=== PATIENT | male | born 1945 | race Caucasian/White ===

== ENCOUNTER 2020-06-08 11:37 | Outpatient (CLI) | payer MEDICARE, SELFPAY ==
[2020-06-08 12:20] LABS: Basophils Percent Auto 0.5 % (0.2-1.2); Eosinophils Percent Auto 0.1 % (0-4.4); Hematocrit 47.4 % (42.0-52.0); Hemoglobin 15.4 g/dL (14.0-18.0); Immature Granulocyte Absolute 0.03 K/mm3 (0.00-0.031); Immature Granulocyte Percent A 0.4 % (0-0.5); Immature Platelet Fraction Pct 2.1 % (0.9-11.2); Lymphocytes Absolute Auto 1.84 K/mm3 (0.9-3.2); Lymphocytes Percent Auto 22.2 % (18.3-44.2); Mean Corpuscular HGB Conc 32.5 g/dl (32-36); Mean Corpuscular Hemoglobin 28.4 pg (26-34); Mean Corpuscular Volume 87.3 fl (80-100); Mean Platelet Volume 9.9 fl (7.4-10.4); Monocytes Absolute Auto 0.3 K/mm3 (0.1-0.6); Monocytes Percent Auto 3.9 % (2.6-8.5); Neutrophils Percent Auto 72.9 % (45.5-73.1); Platelet Count Result 120 k/mm3 (150-375); Red Blood Count 5.43 M/mm3 (4.6-6.20); Red Cell Distribution Width 13.8 % (11.5-14.5); White Blood Count 8.3 K/mm3 (4.5-10.0)
[2020-06-08 12:29] LABS: Alanine Aminotransferase 17 U/L (4-50); Albumin Level 3.3 g/dL (3.5-5.1); Alkaline Phosphatase 55 U/L (38-126); Anion Gap 5 mmol/L (8-16); Aspartate Amino Transferase 32 U/L (17-59); Bilirubin,Total 0.6 mg/dL (0.2-1.3); Blood Urea Nitrogen 34 mg/dL (9-20); Calcium 7.7 mg/dL (8.4-10.2); Carbon Dioxide 33 mmol/L (22-30); Chloride 98 mmol/L (98-107); Estimated Glomerular Filt Rate 46; Glucose 138 mg/dL (75-110); Potassium 3.6 mmol/L (3.4-5.0); Sodium 136 mmol/L (137-145); Uric Acid 5.7 mg/dL (3.5-8.5)
[2020-06-08 13:13] LABS: Erythrocyte Sedimentation Rate 21 mm/hr (0-20)
[2020-06-17 14:07] LABS: ANA Cascade Screen Negative (Negative)
== END 2020-06-08 11:38 | disposition home or self-care (01) ==
LOC: ANHLAB 11:41
PROVIDERS: PCP Family Medicine; Visit Provider Physician Assistant
DX: M25.50 Pain in unspecified joint (principal)
CPT/HCPCS: 36415; 80053; 84443; 84550; 85025; 85055; 85652; 86038

== ENCOUNTER 2020-06-11 08:22 | Inpatient (IN) | payer MEDICARE, SELFPAY ==
[2020-06-11] VITALS (13 sets, daily range): BP systolic 113–128; BP diastolic 49–77; PULSE 64–81; RESP 20–25; TEMP 36.4–36.8; O2SAT 70–96; BMI 26.1
--- NOTE | ~2020-06-11 | XR_ITS ---
EXAMINATION: XR abdomen NG/feed tube insert INDICATION: Nasogastric tube insertion TECHNIQUE: Portable AP KUB-NG at 0925 hours COMPARISON: None available FINDINGS: The nasogastric tube is in the stomach. There are patchy opacities throughout all visualize d lung zones. No free intraperitoneal gas is identified. IMPRESSION: 1. Nasogastric tube in the stomach. Reviewed, dictated and finalized at location B.
--- NOTE | ~2020-06-11 | XR_ITS ---
EXAMINATION: XR chest 1V portable DATE: 06/17/2020 05:37 INDICATION: Acute respiratory failure. COVID 19 pneumonia. TECHNIQUE: frontal view of the chest was obtained. COMPARISON: Chest radiograph dated 06/16/2020 FINDINGS: Endotracheal tube tip 4.3 cm above the marck. Nasogastric tube in the stomach. Right upper extremity peripherally inserted central venous catheter (PICC) tip at the superior vena cava. No significant interval change in diffuse bilateral patchy airspace opacities throughout both lungs r elatively sparing the apices. No pneumothorax or pleural effusion. The cardiomediastinal silhouette i s normal. Suture anchors at the right glenoid suggesting prior labral repair. IMPRESSION: 1. No significant interval change in diffuse bilateral lung disease consistent with COVID pneumonia. Reviewed, dictated and finalized at location A.
--- NOTE | ~2020-06-11 | XR_ITS ---
EXAMINATION: XR chest 2V EXAM DATE: 06/11/2020 09:13 INDICATION: Weakness. Recent COVID vaccine. TECHNIQUE: Frontal and lateral projections of the chest obtained and reviewed. There is no prior viktor dy for comparison. FINDINGS: There is moderate amount of bilateral ill-defined airspace disease probably acute infectio us process. Cardiomediastinal silhouette is normal. There is no pneumothorax suspected. There are no pleural effusions. There are mild bony degenerative changes. IMPRESSION: 1. Moderate amount of ill-defined bilateral acute airspace disease, probably infection. Reviewed, dictated and finalized at location A.
--- NOTE | ~2020-06-11 | XR_ITS ---
XR chest 1V portable DATE: 06/20/2020 05:39 INDICATION: Acute respiratory failure. Covid 19 pneumonia. TECHNIQUE: Portable AP chest on 06/20/2020 at 0520 hours COMPARISON: 06/19/2020 portable AP chest at 0519 hours FINDINGS: ET tube in satisfactory position approximately 4 cm above marck. NG tube in stomach. Right upper extremity PIC catheter tip overlies the superior vena cava. There are persistent patchy bilateral diffuse pulmonary infiltrates which appear relatively stable si nce 06/19/2020. IMPRESSION: Persistent extensive patchy diffuse bilateral pulmonary infiltrates, relatively stable si nce 06/19/2020 Reviewed, dictated and finalized at location A. IMPRESSION: Persistent extensive patchy diffuse bilateral pulmonary infiltrates , relatively stable since 06/19/2020
--- NOTE | ~2020-06-11 | XR_ITS ---
EXAMINATION: XR chest 1V portable EXAM DATE: 06/16/2020 05:49 INDICATION: Acute respiratory failure, COVID-19 pneumonia TECHNIQUE: Portable AP frontal chest x-ray was obtained. Comparison is made to prior examination from 06/15/2020. FINDINGS: Endotracheal tube tip is 3 centimeters above the marck. There is a right-sided PICC line w ith tip projecting over the cavoatrial junction. There is a nasogastric tube seen with tip collimate d off the study, but below the left hemidiaphragm. Diffuse bilateral acute airspace disease, pneumonia. There are no sizable pleural effusions. There is no pneumothorax suspected. Cardiomediastinal silhouette is normal. The bones and soft tissues a re unremarkable. There is no significant interval change compared to prior exam. IMPRESSION: 1. Line and tube(s) in position. 2. Extensive bilateral airspace disease unchanged. Reviewed, dictated and finalized at location A.
--- NOTE | ~2020-06-11 | XR_ITS ---
XR chest 1V portable DATE: 06/23/2020 05:34 INDICATION: Acute respiratory failure. Covid 19 pneumonia TECHNIQUE: Portable AP chest on 06/23/2020 at 0522 hours COMPARISON: 06/22/2020 portable AP chest at 0508 hours FINDINGS: There are extensive patchy bilateral pulmonary infiltrates, mildly increased compared to . No pleural effusion or pneumothorax. Normal heart size. Right upper extremity PIC catheter tip overlies superior cavoatrial junction approximately. IMPRESSION: Extensive patchy bilateral pulmonary infiltrates, mildly increased since 06/20/2020 Reviewed, dictated and finalized at location A.
--- NOTE | ~2020-06-11 | XR_ITS ---
EXAMINATION: XR chest 1V portable EXAM DATE: 06/15/2020 04:01 INDICATION: Respiratory distress. TECHNIQUE: Portable AP frontal chest x-ray was obtained. Comparison is made to prior examination from 06/13, 06/11. FINDINGS: Extensive patchy bilateral peripheral distribution airspace disease, unchanged compared to 06/13 exam, but with significant progression compared to 06/11. Distribution is consistent with COVID pneumonia. Other infectious etiology or edema not excludable. No pneumothorax. No sizable pleural eff usions. Cardiomediastinal silhouette is normal. Some right glenoid rotator cuff repair anchors. IMPRESSION: Extensive bilateral acute airspace disease, unchanged compared to most recent exam. No pn eumothorax. Reviewed, dictated and finalized at location A. IMPRESSION: Extensive bilateral acute airspace disease, unchanged compared to m ost recent exam. No pneumothorax.
--- NOTE | ~2020-06-11 | XR_ITS ---
XR chest 1V portable DATE: 06/22/2020 05:17 INDICATION: Acute respiratory failure. Covid 19 pneumonia. TECHNIQUE: Portable AP chest on 06/22/2020 at 0508 hours COMPARISON: 06/21/2020 portable AP chest at 0518 hours FINDINGS: Interval removal of ET tube and NG tube since 06/21/2020. Right upper extremity PIC catheter tip is situated near the superior cavoatrial junction. There are extensive patchy diffuse bilateral pulmonary infiltrates, relatively stable since 06/21/2020 . Normal heart size. Aortic arch calcification. No pleural effusion or pneumothorax. IMPRESSION: Persistent severe patchy bilateral pulmonary infiltrates Removal of ET and NG tubes Reviewed, dictated and finalized at location A.
--- NOTE | ~2020-06-11 | XR_ITS ---
EXAMINATION: XR chest 1V portable EXAM DATE: 06/13/2020 05:25 INDICATION: hypoxia, pneumonia TECHNIQUE: Portable AP frontal chest x-ray was obtained. Comparison is made to prior examination from 06/11/2020. FINDINGS: Extensive patchy bilateral peripheral distribution airspace disease, with significant progr ession compared to prior examination. Distribution is consistent with COVID pneumonia. Other infectio us etiology or edema not excludable. No pneumothorax. There are is small left pleural effusion. Cardi omediastinal silhouette is normal. Some right glenoid rotator cuff repair anchors. IMPRESSION: Significant progression in extensive bilateral acute airspace disease. Distribution consi stent with COVID pneumonia. Reviewed, dictated and finalized at location A. IMPRESSION: Significant progression in extensive bilateral acute airspace disea se. Distribution consistent with COVID pneumonia.
--- NOTE | ~2020-06-11 | XR_ITS ---
EXAMINATION: XR chest 1V portable DATE: 06/26/2020 06:05 INDICATION: Shortness of breath. Pneumonia. TECHNIQUE: A single frontal view of the chest was obtained. COMPARISON: Chest single view 06/23/2020, chest CT 06/12/2020 FINDINGS: There are patchy airspace opacities in all lung zones bilaterally. No pleural effusion or p neumothorax. The heart size is normal. A right upper extremity peripherally inserted central venous c atheter (PICC) is seen with tip in the superior vena cava. There are suture anchors in right scapula. IMPRESSION: 1. Stable diffuse lung disease, consistent with COVID-19 pneumonia. Reviewed, dictated and finalized at location A.
--- NOTE | ~2020-06-11 | XR_ITS ---
EXAMINATION: XR chest ET placement INDICATION: Endotracheal tube placement TECHNIQUE: Portable AP chest at 0923 hours COMPARISON: 0359 hours FINDINGS: Endotracheal tube has been inserted which ends 2.6 cm above the marck. Diffuse airspace op acities persist in all lung zones without significant change. There is no pleural effusion or pneumot horax. The cardiomediastinal silhouette is normal. The nasogastric tube is followed as far as the sto mach. Its tip is beyond the inferior margin of the radiograph. Suture anchors are noted in the right glenoid. IMPRESSION: 1. Endotracheal and nasogastric tubes inserted in adequate position. 2. Stable diffuse lung disease, consistent with pneumonia and/or pulmonary edema and/or acute respira tory distress syndrome (ARDS). Reviewed, dictated and finalized at location B. IMPRESSION: 1. Endotracheal and nasogastric tubes inserted in adequate position. 2. Stable diffuse lung disease, consistent with pneumonia and/or pulmonary frances a and/or acute respiratory distress syndrome (ARDS).
--- NOTE | ~2020-06-11 | CT_ITS ---
EXAMINATION: CTA chest PE protocol DATE: 06/12/2020 22:01 INDICATION: Shortness of breath, worsening hypoxia TECHNIQUE: Computed tomography angiography (CTA) of the chest was performed with 100 mL Omnipaque-350 intravenous contrast timed to evaluate the pulmonary arteries. Coronal maximum intensity projection 3D-reconstructions were created by the technologist. Automated exposure control and iterative reconst ruction technique were employed. Exam dose: 561.11 mGy-cm total exam DLP. COMPARISON: 06/11/2020 2 view chest FINDINGS: There is diagnostic contrast enhancement of the pulmonary arteries and no evidence of pulmo nary embolism. No thoracic aortic aneurysm or dissection. Thoracic aortic and coronary artery calcifications. Mild hilar and mediastinal lymph node prominence, likely reactive. Heart size is within normal range. No pericardial or pleural effusion or pneumothorax. There are extensive patchy groundglass infiltrates scattered throughout both lungs all lobes, with so me atelectasis/consolidation particularly in the dependent lower lobes. Normal morphology of the included portions of the adrenal glands. Small sliding hiatal hernia. No suspicious osteolytic or osteoblastic lesions. Degenerative changes of the thoracic and lumbar spi ne. IMPRESSION: No evidence of pulmonary embolism Extensive bilateral pulmonary infiltrates Reviewed, dictated and finalized at Location A. Reviewed, dictated and finalized at location A.
--- NOTE | ~2020-06-11 | XR_ITS ---
EXAMINATION: XR chest 1V portable DATE: 06/18/2020 07:43 INDICATION: COVID 19 pneumonia. Acute respiratory failure. TECHNIQUE: frontal view of the chest was obtained. COMPARISON: Chest radiograph dated 06/17/2020 FINDINGS: Endotracheal tube tip 3.4 cm above the marck. Right upper extremity peripherally inserted central ve nous catheter (PICC) tip at the caudal superior vena cava. No significant interval change in scattered bilateral patchy airspace opacities throughout both lungs relatively sparing the apices. No pneumothorax or pleural effusion. Cardiomediastinal silhouette is normal. Suture anchors at the right glenoid consistent with prior labral repair. IMPRESSION: 1. No significant interval change in diffuse bilateral lung disease consistent with COVID pneumonia. Reviewed, dictated and finalized at location A.
--- NOTE | ~2020-06-11 | XR_ITS ---
XR chest 1V portable DATE: 06/19/2020 05:33 INDICATION: Acute respiratory failure. Covid 19 pneumonia. TECHNIQUE: Portable AP chest on 06/19/2020 0519 hours COMPARISON: 06/18/2020 portable AP chest at 0739 hours FINDINGS: ET tube tip 4 cm above marck in satisfactory position. NG tube in stomach. Right upper extremity PIC catheter tip overlies upper right atrium. Normal heart size. No pleural effusion. No pneumothorax is evident. Extensive patchy bilateral pulmonary infiltrates appear stable since 06/18/2020. IMPRESSION: Stable extensive patchy bilateral pulmonary infiltrates since 06/18/2020 Reviewed, dictated and finalized at location A. IMPRESSION: Stable extensive patchy bilateral pulmonary infiltrates since 2020
--- NOTE | ~2020-06-11 | XR_ITS ---
XR chest 1V portable DATE: 06/21/2020 05:37 INDICATION: Acute respiratory failure. Covid 19 pneumonia TECHNIQUE: Portable AP chest on 06/21/2020 at 0518 hours COMPARISON: Portable AP chest on 06/20/2020 at 0520 hours FINDINGS: ET tube in satisfactory position approximately 2.9 cm above marck. NG tube in stomach. Rig ht upper extremity PIC catheter tip overlies upper right atrium. There are persistent diffuse bilateral patchy pulmonary infiltrates, without improvement since 021. No pleural effusion or pneumothorax. IMPRESSION: Persistent diffuse patchy bilateral pulmonary infiltrates, relatively stable since 021 Reviewed, dictated and finalized at location A. IMPRESSION: Persistent diffuse patchy bilateral pulmonary infiltrates, relative ly stable since 06/20/2020
--- NOTE | ~2020-06-11 | XR_ITS ---
EXAMINATION: XR chest PICC line EXAM DATE: 06/15/2020 13:11 INDICATION: PICC line placement. Respiratory failure. TECHNIQUE: Portable AP frontal chest x-ray was obtained. Comparison is made to prior examination from earlier same day. FINDINGS: Endotracheal tube tip is 2.5 centimeters above the marck. There is a right-sided PICC line with tip projecting over the cavoatrial junction. There is a nasogastric tube seen with tip collima rocio off the study, but below the left hemidiaphragm. Diffuse and extensive bilateral acute airspace disease, pneumonia. There are no sizable pleural effus ions. There is no pneumothorax suspected. Cardiomediastinal silhouette is normal. The bones and soft tissues are unremarkable. There is no significant interval change compared to prior exam. IMPRESSION: 1. Line and tube(s) in position. 2. Extensive bilateral airspace disease unchanged. Reviewed, dictated and finalized at location A.
--- NOTE | 2020-06-11 08:34 | ECG_ITS ---
Measurements Intervals [place] Rate: 60 P: 12 TN: 181 QRS: -66 QRSD: 86 T: 17 QT: 423 QTc: 426 Interpretive Statements SINUS RHYTHM INCOMPLETE RIGHT BUNDLE BRANCH BLOCK BORDERLINE R WAVE PROGRESSION, ANTERIOR LEADS INFERIOR INFARCT, AGE INDETERMINATE BASELINE ARTIFACT- I, III, AVR, AVL BORDERLINE ECG Electronically Signed On 06-11-2020 8:55:04 CDT by Bob Vance D.O.
[2020-06-11 08:48] LABS: Basophils Percent Auto 0.4 % (0.2-1.2); Eosinophils Percent Auto 0.4 % (0-4.4); Hematocrit 46.4 % (42.0-52.0); Hemoglobin 15.5 g/dL (14.0-18.0); Immature Granulocyte Absolute 0.08 K/mm3 (0.00-0.031); Immature Granulocyte Percent A 0.7 % (0-0.5); Lymphocytes Absolute Auto 1.55 K/mm3 (0.9-3.2); Lymphocytes Percent Auto 14.2 % (18.3-44.2); Mean Corpuscular HGB Conc 33.4 g/dl (32-36); Mean Corpuscular Volume 86.7 fl (80-100); Mean Platelet Volume 9.6 fl (7.4-10.4); Monocytes Absolute Auto 0.4 K/mm3 (0.1-0.6); Monocytes Percent Auto 3.6 % (2.6-8.5); Neutrophils Absolute Auto 8.8 K/mm3 (1.3-6.7); Neutrophils Percent Auto 80.7 % (45.5-73.1); Platelet Count Result 182 k/mm3 (150-375); Red Blood Count 5.35 M/mm3 (4.6-6.20); Red Cell Distribution Width 14.1 % (11.5-14.5); White Blood Count 10.9 K/mm3 (4.5-10.0)
[2020-06-11 08:51] LABS: Alveolar/Arterial O2 Gradient 157.2 mmHg; Fractional Inspired Oxygen 36 %; HCO3 ABG 25.4 mEq/l (22.0-26.0); Oxygen Saturation ABG 91.9 % (95.0-100.0); Oxyhemoglobin 89.3 % THb (90.0-100.0); PCO2 ABG 35.8 mmHg (35.0-45.0); PO2 FiO2 Ratio Arterial Blood 1.61 %; Total Hemoglobin 15.2 g/dL (12.0-18.0); pH ABG 7.468 (7.350-7.450)
[2020-06-11 08:52] LABS: Device NASAL CANNULA; Site Drawn LEFT BRACHIAL
[2020-06-11 08:59] LABS: Alanine Aminotransferase 15 U/L (4-50); Albumin Level 3.3 g/dL (3.5-5.1); Alkaline Phosphatase 80 U/L (38-126); Anion Gap 7 mmol/L (8-16); Aspartate Amino Transferase 34 U/L (17-59); Bilirubin,Total 0.6 mg/dL (0.2-1.3); Blood Urea Nitrogen 41 mg/dL (9-20); Calcium 7.7 mg/dL (8.4-10.2); Carbon Dioxide 31 mmol/L (22-30); Chloride 101 mmol/L (98-107); Estimated CRCL calculation 49 ml/min; Estimated Glomerular Filt Rate 54; Glucose 154 mg/dL (75-110); Potassium 3.5 mmol/L (3.4-5.0); Sodium 139 mmol/L (137-145)
[2020-06-11] MEDS: ALBUTEROL SULFATE (*SP) AEROSOL 1 PUFF 4 PUFF INHALATION (09:38)
--- NOTE | 2020-06-11 10:07 | ED.WEAKNESS ---
HPI - Weakness General Chief complaint: Weakness Stated complaint: weakness, multiple sxs Time Seen by Provider: 06/11/20 09:23 Source: patient and family Mode of arrival: ambulatory Limitations: no limitations History of Present Illness HPI Narrative: 74-year-old male History of hypertension and type 2 diabetes Presents stating I feel like shit Symptoms began on about a week ago and he had a Covid vaccination 11 days ago He complains of general fatigue and weakness trouble sleeping achiness shortness of breath and a slight cough Related Data Home Medications Medication Instructions Recorded Confirmed allopurinol 06/11/20 canagliflozin [Invokana] mg 06/11/20 canagliflozin [Invokana] mg 06/11/20 indapamide mg 06/11/20 insulin glargine U-300 conc unit SUBCUT 06/11/20 [Toujeo SoloStar U-300 Insulin] lisinopril 06/11/20 Allergies Allergy/AdvReac Type Severity Reaction Status Date / Time aspirin Allergy Unknown Skin Verified 06/11/20 08:33 Reaction tolmetin [Tolectin] Allergy Unknown Skin Verified 06/11/20 08:33 Reaction Review of Systems Review of Systems: All systems reviewed & are unremarkable except as noted in HPI and below Constitutional: Constitutional: Reports no additional constitutional complaints, Reports chills, Reports fatigue, Reports fever(s), Denies headache(s) and Reports weakness Eyes: Eyes: Reports no additional eye complaints and Denies change in vision ENT: Denies headache(s) and Denies sore throat Cardiovascular: Cardiovascular: Denies chest pain and Denies dyspnea Respiratory: Respiratory: Reports cough and Reports dyspnea Gastrointestinal: Gastrointestinal: Denies abdominal pain, Denies diarrhea and Denies vomiting Genitourinary: Genitourinary: Denies dysuria and Denies urinary frequency Musculoskeletal: Musculoskeletal: Reports myalgias, Denies deformity, Denies arthralgias, Denies joint swelling and Denies numbness Integumentary/Breasts: Skin/Breast: Denies rash and Denies wounds Neurologic: Denies headache(s), Denies focal weakness and Denies numbness Psychiatric: Psychiatric: Reports no additional psychiatric complaints Endocrine: Endocrine: Reports no additional endocrine complaints Hematologic/Lymphatic: Hematologic/Lymphatic: Reports no additional hematologic/lymphatic complaints Allergic/Immunologic: Allergic/Immunologic: Reports no additional allergic/immunologic complaints [facility] Family History Family History Father Family history of coronary artery disease Hypertension Mother Hypertension Family history of coronary artery disease Social History Social History Smoking status: Former smoker Alcohol intake: never Exam Const: General: cooperative and alert Orientation/consciousness: patient oriented x3 (alert) HENMT: Head: normal to inspection, normocephalic and atraumatic Ears: external ears normal General nose exam: no epistaxis Eyes: Conjunctivae: conjunctivae normal EOM: EOMs intact bilaterally Neck: Neck: normal visual inspection, supple and no JVD Resp: Effort & Inspection: labored Auscultation: crackles, no rales, rhonchi, no wheezes and other (BS =) Other: Bilateral Cardio: Rate: regular rate Rhythm: regular rhythm Heart sounds: no murmurs GI: GI Palp: Yes Soft to palpation and No Tenderness to palpation present (GI) Skin: General skin exam: normal color and no rashes or lesions noted Neuro: General: patient oriented x3 (alert) and moves all extremities Speech: normal speech Extrem: General: normal to inspection and no pedal edema Psych: Affect: normal affect Course Course Emergency Course: Discussed with hospitalist for admission Vital Signs Vital signs: Vital Signs Temperature 36.4 C 06/11/20 08:30 Pulse Rate 64 06/11/20 08:30 Respiratory Rate 25 H 06/11/20 08:30 Blood Pre
[2020-06-11 10:24] LABS: Add Urine Microscopic? YES; Appearance Urine Clear (Clear); Bacteria Urine Trace /hpf; Bilirubin Urine Negative (Negative); Blood Urine Negative (Negative); Color Urine Yellow (Yellow); Glucose Urine UA 3+ mg/dL (Negative); Ketones Urine Trace mg/dL (Negative); Leukocyte Esterase Ur Negative LEU/UL (Negative); Mucus Urine Rare /lpf; Nitrate Urine Negative (Negative); Protein Urine 1+ mg/dL (Negative); RBC Urine 0-2 /hpf (0-2); Specific Grav Ur 1.028 (1.001-1.035); Urobilinogen Urine Negative mg/dL (<2.0); WBC Urine 0-3 /hpf
--- NOTE | 2020-06-11 12:25 | PC.NURSE ---
This patient, Naman Glaser, was admitted to [facility] Surg Room 326-01. Patient/family oriented to hospital policies and general routines including ID bracelet, bed and alarms, visiting hours, pain management, procedures, bathroom and other care routines, personal items, smoking policy, room service/diet, and visiting hours.Report received from Tete EDEN. Information on how to activate the Rapid Response Team has been discussed. Patient/Family are encouraged to report perceived risks to care and to ask questions if they do not understand what they are told or what they should do.
--- NOTE | 2020-06-11 12:39 | PM.IMHP ---
H&P: HPI History of Present Illness Date/Time: 06/11/20 12:39 Chief Complaint: Cough and dyspnea Narrative: 74-year-old gentleman received the motor in a COVID-19 vaccination on May 26. That same day he started feeling poorly. Within a few days he developed a dry cough and increasing fatigue. His appetite was declining. For about 3 days prior to admission he did need much and was sleeping most of the time. He was very short of breath even walking across the room. EMS was summoned and when they arrived they reported an oxygen saturation in the 70s on room air. He was in the 80s on room air in the emergency department. He reports that his cough remain dry. He had no chest pain or fevers or chills. No recent travel or exposure to ill individuals. No loss of taste or smell. However his taste is altered a bit such that things states the that more suite or more salty than usual. He denied any gastrointestinal symptoms of nausea vomiting or diarrhea or abdominal pain or blood in stool. He denied dysuria or hematuria. His felt poorly for a few days after her vaccination on the same day. However after a few days she began to feel better. Review of Systems Review of Systems: All systems reviewed & are unremarkable except as noted in HPI and below PMFSH Past Medical History Medical History (Updated 06/11/20 @ 13:30 by Alf Carson MD) DM w/o complication type II, uncontrolled Essential (primary) hypertension Idiopathic gout, unspecified site Mixed hyperlipidemia Surgical History Surgical History (Updated 06/11/20 @ 13:10 by Alf Carson MD) Hx of prostatectomy Robot assisted for benign disease Family History Family History Father Family history of coronary artery disease Hypertension Mother Hypertension Family history of coronary artery disease Social History Social History (Updated 06/11/20 @ 13:11 by Alf Carson MD) Social History: Retired. . Resides with in own home. Former smoker. Occasional alcohol. No recreational drugs or medical cannabis. Smoking status: Former smoker Alcohol intake: current Alcohol use details: very occasional Substance use: never Gender identity (if verbalized by the patient): Male Spiritual care concerns: No Meds Home Medications and Allergies Home Medications Medication Instructions Recorded Confirmed Type allopurinol 06/11/20 History canagliflozin [Invokana] mg 06/11/20 History canagliflozin [Invokana] mg 06/11/20 History indapamide mg 06/11/20 History insulin glargine U-300 conc unit SUBCUT 06/11/20 History [Toujeo SoloStar U-300 Insulin] lisinopril 06/11/20 History Allergies Allergy/AdvReac Type Severity Reaction Status Date / Time aspirin Allergy Unknown Skin Verified 06/11/20 08:33 Reaction tolmetin [Tolectin] Allergy Unknown Skin Verified 06/11/20 08:33 Reaction Vital Signs Vital Signs - 24 hr 06/11/20 08:30 06/11/20 08:35 06/11/20 09:38 Temperature 97.6 F Pulse Rate 64 64 70 Respiratory Rate 25 H 20 Blood Pressure 113/49 L Pulse Oximetry 70 L 83 L Exam Narrative: Exam Narrative: HEENT: EOMI, PERRL, sclerae nonicteric, pharyngeal mucosa pink and intact NECK: No JVD, adenopathy, or thyromegaly CHEST: DIFFUSE BILATERAL LOWER LOBE AND FEW LEFT ANTERIOR COARSE CRACKLES. Normal effort. HEART: NL S1/S2, regular, no murmur ABDOMEN: BS+, soft, nontender, no mass, no bruits EXTREMITIES: No cyanosis, edema, or clubbing NEUROLOGIC: CN intact and symmetric to inspection. MUSCULOSKELETAL: Tone and strength symmetric. PSYCH: Alert. Oriented to person, place, and time. H&P: Results Labs Labs: Short CBC 06/11/20 Range/Units 08:40 WBC 10.9 H (4.5-10.0) K/mm3 Hgb 15.5 (14.0-18.0) g/dL Hct 46.4 (42.0-52.0) % Plt Count 182 D (150-375) k/mm3 BMP 06/11/20 08:40 Sodium 139 Pot
[2020-06-11] MEDS: LACTATED RINGERS 1,000 ML 125 ML IV CONT ×2 (13:27→21:32)
[2020-06-11 14:47] LABS: Lactate Dehydrogenase 720 U/L (313-618)
[2020-06-11 14:49] LABS: D Dimer 0.98 ug/mL (<0.48)
[2020-06-11 15:00] LABS: Troponin I < 0.012 ng/mL (0.000-0.034)
[2020-06-11 15:02] LABS: CRP 22.8 mg/dL (<1.0)
[2020-06-11] MEDS: ALBUTEROL SULFATE (*SP) INHALER 4 PUFF INHALATION ×2 (16:46→21:26)
[2020-06-11] MEDS: WATER FOR IRRIGATION, STERILE 1,000 ML BOTTLE 1000 ML (17:11)
[2020-06-11] MEDS: INSULIN ASPART (*BKC) 100 UNITS/ML SUB-Q (17:11)
[2020-06-11 17:23] LABS: Glucose Point of Care 304 (65-105)
[2020-06-11] MEDS: ENOXAPARIN 40 MG/0.4 ML SYRINGE SUB-Q (21:24)
[2020-06-11] MEDS: INSULIN GLARGINE (*BKC) 100 UNITS/ML 13 UNITS SUB-Q (21:25)
[2020-06-11 21:56] LABS: Glucose Point of Care 345 (65-105)
[2020-06-12] VITALS (20 sets, daily range): BP systolic 104–131; BP diastolic 48–62; PULSE 43–97; RESP 14–28; TEMP 36.1–36.9; O2SAT 89–100
--- NOTE | 2020-06-12 05:07 | PM.EVENT ---
Event Note Event Note Event Note: The patient desatted down in the 80s with 10 L per nasal cannula so we increased to 15. I suggested a non-rebreather. And ordered an inhaler. The patient's O2 saturations came up to 90 percentile. The patient desats when he gets up to the bathroom. May consider a [place] catheter.
[2020-06-12] MEDS: LACTATED RINGERS 1,000 ML 125 ML IV CONT ×2 (06:08→15:33)
[2020-06-12 06:19] LABS: Hematocrit 40.7 % (42.0-52.0); Hemoglobin 13.3 g/dL (14.0-18.0); Mean Corpuscular HGB Conc 32.7 g/dl (32-36); Mean Corpuscular Hemoglobin 28.3 pg (26-34); Mean Corpuscular Volume 86.6 fl (80-100); Mean Platelet Volume 9.6 fl (7.4-10.4); Platelet Count Result 225 k/mm3 (150-375); White Blood Count 7.3 K/mm3 (4.5-10.0)
[2020-06-12 06:39] LABS: Alanine Aminotransferase 13 U/L (4-50); Albumin Level 2.8 g/dL (3.5-5.1); Alkaline Phosphatase 66 U/L (38-126); Anion Gap 8 mmol/L (8-16); Aspartate Amino Transferase 26 U/L (17-59); Bilirubin,Total 0.4 mg/dL (0.2-1.3); Blood Urea Nitrogen 40 mg/dL (9-20); Calcium 7.6 mg/dL (8.4-10.2); Carbon Dioxide 29 mmol/L (22-30); Chloride 104 mmol/L (98-107); Estimated CRCL calculation 46 ml/min; Estimated Glomerular Filt Rate 50; Glucose 272 mg/dL (75-110); Potassium 3.7 mmol/L (3.4-5.0); Sodium 141 mmol/L (137-145)
[2020-06-12 06:54] LABS: CRP 18.8 mg/dL (<1.0)
[2020-06-12 07:57] LABS: Base Excess ABG 2.8 mEq/l (+/-2.0); Fractional Inspired Oxygen 100 %; HCO3 ABG 26.3 mEq/l (22.0-26.0); Oxygen Content ABG 18.9 %vol (16.0-22.0); Oxygen Saturation ABG 94.3 % (95.0-100.0); Oxyhemoglobin 92.5 % THb (90.0-100.0); PCO2 ABG 36.9 mmHg (35.0-45.0); PO2 ABG 66.1 mmHg (80.0-100.0); PO2 FiO2 Ratio Arterial Blood 0.66 %; Total Hemoglobin 14.5 g/dL (12.0-18.0); pH ABG 7.471 (7.350-7.450)
[2020-06-12 07:58] LABS: Device NON-REBREATHER MASK; Modified Allen's Test Pass; Site Drawn RIGHT RADIAL
--- NOTE | 2020-06-12 08:03 | PM.IMPN ---
Progress Note: A&P Assessment and Plan (1) Pneumonia: Qualifiers: Laterality: bilateral Lung location: lower lobe of lung Pneumonia type: due to unspecified organism Qualified Code(s): J18.9 - Pneumonia, unspecified organism Code(s): J18.9 - Pneumonia, unspecified organism Status: Acute Assessment and Plan: Community-acquired pneumonia with HIGH SUSPICION for COVID-19 versus bacterial versus other viral Doxycycline and ceftriaxone Dexamethasone 6mg IV daily (1st dose 06/11) Oxygen high flow NC and then non-rebreather mask , not yet on [employer] COVID-19 PCR swab pending, results due back late this evening Check baseline inflammatory markers, repeated labs daily to monitor trends of these CTA PE Protocol ordered - may need ECHO too added DuoNebs Q4, mucinex, claritin, to Albuterol inhaler RI (2) Hypoxia: Code(s): R09.02 - Hypoxemia Status: Acute Assessment and Plan: Due to pneumonia Oxygen to maintain saturations above 90-92% Currently requiring 10-15 L O2 by nonrebreather mask see above pneumonia treatment continuous telemetry monitoring CTA PE protocol ABG in the morning (3) DM w/o complication type II, uncontrolled: Qualifiers: Glycemic state: with hyperglycemia Qualified Code(s): E11.65 - Type 2 diabetes mellitus with hyperglycemia Code(s): E11.65 - Type 2 diabetes mellitus with hyperglycemia Status: Acute Assessment and Plan: Currently holding home DM meds due to possible renal effects during acute illness started glucose monitoring, ACHS SSI ordered may need tighter control once the steroids start affecting his glucose levels continue to monitor serial CMPs ordered (4) Essential (primary) hypertension: Code(s): I10 - Essential (primary) hypertension Status: Acute Assessment and Plan: Currently holding home anti-HTN meds during acute illness moved to IMU for closer monitoring continous telemetry monitoring SBPs>100, HR 50-70s A and O x4 contiue maintenance IVFs, as patient has little appetite and energy, to avoid dehydration cap refill intact, peripheral pulses x4 present, extremities warm consider ECHO if patient VS change continue to monitor serial CMPsand CBCs ordered Additional Plan Given the acuity and nature of the patient's medical issues he will require greater than 48 hours of inpatient care. Subjective Date/time seen: 06/12/20 08:03 Naman is not feeling any better today and still requiring high levels of supplemental O2. This morning's ABG is about the same (pO2 slightly better) and he was recently increased from 10L to 15 L Non-rebreather mask. His COVID testing results are pending. Continued antibiotics and steroiids, and PRN inhalers. Starting him on steroids, claritin, DuoNeb treatments Q4hrs, mucinex, started anti-viral, and ordered CTA PE protocol. Also transferred him into IMU standing for Continuous telemetry and closer monitoring. Recommended prone positioning as patient comfort allows. Review of Systems Review of Systems: All systems reviewed & are unremarkable except as noted in HPI and below Constitutional: Constitutional: Reports as per HPI, Reports no additional constitutional complaints, Reports chills, Reports fatigue, Reports fever(s), Denies headache(s), Reports malaise and Reports weakness Comments: still has his sense of taste and smell Eyes: Eyes: Reports as per HPI, Reports no additional eye complaints and Denies change in vision ENT: Reports as per HPI, Reports Normal hearing present, Denies dizziness, Denies headache(s), Denies nasal congestion, Denies sinus pressure and Denies sore throat Cardiovascular: Cardiovascular: Reports as per HPI, Denies chest pain, Denies chest pain at rest, Denies chest pain with activity, Denies rapid heart rate, Denies pedal edema, Denies edema, Denies irregular heart rhythm and Reports dyspnea Respiratory: Respiratory: Reports as per HPI, Rep
[2020-06-12] MEDS: DEXAMETHASONE SOD PHOS INJ 4 MG/ML VIAL 6 MG IV PUSH (08:13)
[2020-06-12] MEDS: ENOXAPARIN 40 MG/0.4 ML SYRINGE SUB-Q ×2 (08:14→20:56)
--- NOTE | 2020-06-12 08:14 | PC.NURSE ---
Called provider on patient condition 2x during the night. By morning he was put on a nonrebreather mask. He was at 10 lpm through the night desaturating down to 78% SpO2. During desaturations with activity he would be turned up to 15 lpm on high flow nasal canula and appeared to recover at rest. Once he did not recover beyond 86% for approximately 20 minutes on 15 lpm and provider was notified. She ordered prn albuterol and patient finally improved after falling asleep, maintaining an SpO2 of 93% on 10 lpm. He continued to have severe desats while using the urinal. In the AM he was observed desaturating while on the phone. He was placed on a nonrebreather mask at this time with no signs of recovery while awake. Orders were then placed to perform ABG's and transfer to IMU.
[2020-06-12 08:20] LABS: Magnesium 2.6 mg/dL (1.6-2.3); Phosphorus 2.8 mg/dL (2.5-4.5)
[2020-06-12] MEDS: INSULIN ASPART (*BKC) 100 UNITS/ML SUB-Q ×3 (08:20→17:15)
[2020-06-12 08:24] LABS: Glucose Point of Care 246 (65-105)
[2020-06-12 08:30] LABS: NT Pro B Type Natriuretic Pept 707 PG/ML (5-100)
[2020-06-12] MEDS: guaiFENesin 12 HR 600 MG TABCR 1200 MG PO ×2 (08:55→20:56)
[2020-06-12] MEDS: IPRATROPIUM BR 0.02% INH SOLN 0.5 MG/2.5 ML VIAL INHALATION ×4 (08:58→19:55)
[2020-06-12] MEDS: ALBUTEROL SULFATE NEB 2.5 MG/0.5 ML INH INHALATION ×4 (08:58→19:55)
--- NOTE | 2020-06-12 10:31 | PC.NURSE ---
This patient, Naman Glaser, was transferred to [ICU 4 ] on 06/12/20 at 1032. Personal belongings sent with patient. Report given to [ Thiago]. Appropriate documentation sent with patient.
[2020-06-12 12:16] LABS: Glucose Point of Care 275 (65-105)
[2020-06-12 15:04] LABS: Alanine Aminotransferase 15 U/L (4-50); Estimated CRCL calculation 53 ml/min; Estimated Glomerular Filt Rate 59
[2020-06-12] MEDS: REMDESIVIR 200 MG/NS 250 ML 200 MG/250 ML BAG 250 MG IVPB (15:34)
[2020-06-12 17:21] LABS: Glucose Point of Care 263 (65-105)
--- NOTE | 2020-06-12 18:34 | PCRCNOTE ---
1230 - Pt encouraged to lay in the prone position.
[2020-06-12 19:43] LABS: SARS-CoV-2 RNA PCR Positive
[2020-06-12] MEDS: INSULIN GLARGINE (*BKC) 100 UNITS/ML 13 UNITS SUB-Q (20:55)
[2020-06-12 22:07] LABS: Glucose Point of Care 304 (65-105)
[2020-06-12 23:31] LABS: Glucose Point of Care 302 (65-105)
[2020-06-13] VITALS (30 sets, daily range): BP systolic 107–138; BP diastolic 46–65; PULSE 36–97; RESP 18–26; TEMP 36.3–37.1; O2SAT 87–95
[2020-06-13] MEDS: ALBUTEROL SULFATE NEB 2.5 MG/0.5 ML INH INHALATION ×6 (00:02→20:37)
[2020-06-13] MEDS: IPRATROPIUM BR 0.02% INH SOLN 0.5 MG/2.5 ML VIAL INHALATION ×6 (00:02→20:37)
[2020-06-13] MEDS: INSULIN ASPART (*BKC) 100 UNITS/ML 6 UNITS SUB-Q (00:21)
[2020-06-13 04:10] LABS: Basophils Percent Auto 0.3 % (0.2-1.2); Hemoglobin 14.1 g/dL (14.0-18.0); Lymphocytes Absolute Auto 1.43 K/mm3 (0.9-3.2); Lymphocytes Percent Auto 14.7 % (18.3-44.2); Mean Corpuscular Hemoglobin 28.6 pg (26-34); Mean Corpuscular Volume 89.2 fl (80-100); Mean Platelet Volume 9.6 fl (7.4-10.4); Monocytes Absolute Auto 0.6 K/mm3 (0.1-0.6); Monocytes Percent Auto 6.5 % (2.6-8.5); Neutrophils Absolute Auto 7.5 K/mm3 (1.3-6.7); Neutrophils Percent Auto 77.5 % (45.5-73.1); Platelet Count Result 265 k/mm3 (150-375); Red Blood Count 4.93 M/mm3 (4.6-6.20); Red Cell Distribution Width 14.5 % (11.5-14.5); White Blood Count 9.7 K/mm3 (4.5-10.0)
[2020-06-13 04:30] LABS: Atypical Lymphocytes Present; Platelet Estimate Adequate (Adequate)
[2020-06-13 04:41] LABS: Alanine Aminotransferase 26 U/L (4-50); Albumin Level 2.9 g/dL (3.5-5.1); Alkaline Phosphatase 62 U/L (38-126); Anion Gap 3 mmol/L (8-16); Aspartate Amino Transferase 56 U/L (17-59); Bilirubin,Total 0.2 mg/dL (0.2-1.3); Blood Urea Nitrogen 38 mg/dL (9-20); Calcium 7.9 mg/dL (8.4-10.2); Carbon Dioxide 34 mmol/L (22-30); Chloride 107 mmol/L (98-107); Estimated CRCL calculation 53 ml/min; Estimated Glomerular Filt Rate 59; Glucose 202 mg/dL (75-110); Sodium 144 mmol/L (137-145)
[2020-06-13 04:59] LABS: CRP 7.4 mg/dL (<1.0); Lactate Dehydrogenase 782 U/L (313-618)
[2020-06-13 05:05] LABS: Alveolar/Arterial O2 Gradient 616.9 mmHg; Base Excess ABG 2.5 mEq/l (+/-2.0); Device NON-REBREATHER MASK; Fractional Inspired Oxygen 100 %; HCO3 ABG 25.8 mEq/l (22.0-26.0); Modified Allen's Test Pass; Oxygen Content ABG 17.7 %vol (16.0-22.0); Oxygen Saturation ABG 92.9 % (95.0-100.0); Oxyhemoglobin 90.1 % THb (90.0-100.0); PCO2 ABG 35.7 mmHg (35.0-45.0); PO2 ABG 60.4 mmHg (80.0-100.0); Site Drawn RIGHT RADIAL; pH ABG 7.477 (7.350-7.450)
[2020-06-13] MEDS: guaiFENesin 12 HR 600 MG TABCR 1200 MG PO ×2 (09:00→20:23)
[2020-06-13] MEDS: LORATADINE 10 MG TABLET PO (09:01)
[2020-06-13] MEDS: DEXAMETHASONE SOD PHOS INJ 4 MG/ML VIAL 6 MG IV PUSH (09:01)
[2020-06-13] MEDS: ENOXAPARIN 40 MG/0.4 ML SYRINGE SUB-Q ×2 (09:01→20:23)
[2020-06-13 09:22] LABS: Glucose Point of Care 151 (65-105)
--- NOTE | 2020-06-13 11:29 | PM.IMPN ---
Progress Note: A&P Assessment and Plan (1) Acute respiratory failure with hypoxia: Code(s): J96.01 - Acute respiratory failure with hypoxia Status: Acute Assessment and Plan: Secondary to COVID-19. CTA negative for pulmonary embolism. He has required up to 15 L per high-flow nasal cannula with 15 L non-rebreather. He was transitioned to Airvo this morning. He is maintaining adequate oxygen saturations at 90%. Continue with Airvo device. Appreciate respiratory therapy eval. Continue bronchodilators Plan as outlined below (2) Pneumonia due to COVID-19 virus: Code(s): U07.1 - COVID-19; J12.82 - Pneumonia due to coronavirus disease 2018 Status: Acute Assessment and Plan: Symptom onset approximately 3 days prior to presentation. Patient tested positive on06/11/20. CXR at presentation showed moderate amount of ill-defined bilateral acute airspace disease. CTA with evidence of extensive bilateral pulmonary and infiltrates. CXR repeated this morning shows significant progression and extensive bilateral acute airspace disease. Airvo device in use. Monitor oxygen requirements closely. He is currently in ICU as IMU status but will consider transition to ICU status if further decline in oxygenation/decompensation. Continue Remdesivir for up to 5 days. Started on 06/12/2020 Continue dexamethasone for up to 10 days. Started on 06/12/2020 Will administer COVID-19 convalescent plasma IV antibiotics discontinued today. Symptoms felt to related to viral illness only. Supplemental O2 as noted above. Continuous pulse ox monitoring given increased O2 requirements Supportive care to include bronchodilators, expectorants, antipyretics, incentive spirometry, PEP therapy Trend acute phase reactants (3) DM w/o complication type II, uncontrolled: Qualifiers: Glycemic state: with hyperglycemia Qualified Code(s): E11.65 - Type 2 diabetes mellitus with hyperglycemia Code(s): E11.65 - Type 2 diabetes mellitus with hyperglycemia Status: Acute Assessment and Plan: A1c is 9.0 (06/11/20). Glucose has been elevated above target with some readings in the 300s. This is likely worsened by IV steroids. Last glucose 151. Accu-Cheks ACHS, sliding-scale insulin, and hypoglycemic protocol ordered Continue Lantus. Will increase to 16 units. Home medications including metformin and Invokana currently held due to possible renal effects during acute illness (4) Essential (primary) hypertension: Code(s): I10 - Essential (primary) hypertension Status: Acute Assessment and Plan: And has been fairly well controlled in the low-normal range. Last BP 112/58. Lisinopril on hold Monitor BP daily (5) Sinus bradycardia: Code(s): R00.1 - Bradycardia, unspecified Status: Acute Assessment and Plan: HR declines to 40s when sleeping. Hovers in 50-60s when at rest. He is asymptomatic. EKG presentation reviewed and shows sinus rhythm. Continue to monitor on telemetry. Subjective Date/time seen: 06/13/20 11:29 Interval history: Date of service: 06/14/2019 Naman Glaser is a 74-year-old male with history insulin-dependent type 2 diabetes mellitus, hypertension, hyperlipidemia, and gout who is seen in follow-up for COVID-19 pneumonia. He is feeling fairly well. He states that he feels much better than when he came into the hospital. At rest, he denies any significant shortness of breath. He does have some mild dyspnea with light exertion. He has not done much activity aside from ambulating to the commode. He is able to tolerate this. He is not coughing very frequently and when he does cough it is nonproductive. He denies anosmia or dysgeusia. He denies chest pain, palpitations, or wheezing. No lightheadedness or dizziness. Denies fever, chills, arthralgia, or myalgias. He had a regular bowel movement this morning and denies di
[2020-06-13 12:02] LABS: Glucose Point of Care 157 (65-105)
[2020-06-13] MEDS: SODIUM CHLORIDE 0.9% IV 250 ML 30 ML IV CONT (16:31)
[2020-06-13] MEDS: INSULIN ASPART (*BKC) 100 UNITS/ML SUB-Q (16:39)
[2020-06-13 16:49] LABS: Glucose Point of Care 276 (65-105)
[2020-06-13] MEDS: REMDESIVIR 100 MG/NS 250 ML 100 MG/250 ML BAG 250 MG IVPB (20:22)
[2020-06-13] MEDS: INSULIN GLARGINE (*BKC) 100 UNITS/ML 13 UNITS SUB-Q (20:23)
[2020-06-13 20:36] LABS: Glucose Point of Care 255 (65-105)
[2020-06-14] VITALS (29 sets, daily range): BP systolic 117–133; BP diastolic 58–80; PULSE 37–83; RESP 19–30; TEMP 36.9–37.5; O2SAT 88–93
[2020-06-14] MEDS: IPRATROPIUM BR 0.02% INH SOLN 0.5 MG/2.5 ML VIAL INHALATION ×7 (01:57→23:47)
[2020-06-14] MEDS: ALBUTEROL SULFATE NEB 2.5 MG/0.5 ML INH INHALATION ×7 (01:58→23:47)
[2020-06-14 04:25] LABS: Basophils Percent Auto 0.1 % (0.2-1.2); Hemoglobin 13.6 g/dL (14.0-18.0); Immature Granulocyte Absolute 0.16 K/mm3 (0.00-0.031); Immature Granulocyte Percent A 2.1 % (0-0.5); Lymphocytes Absolute Auto 1.05 K/mm3 (0.9-3.2); Lymphocytes Percent Auto 13.9 % (18.3-44.2); Mean Corpuscular HGB Conc 32.4 g/dl (32-36); Mean Corpuscular Hemoglobin 28.4 pg (26-34); Mean Corpuscular Volume 87.7 fl (80-100); Mean Platelet Volume 9.4 fl (7.4-10.4); Monocytes Absolute Auto 0.4 K/mm3 (0.1-0.6); Monocytes Percent Auto 5.8 % (2.6-8.5); Neutrophils Absolute Auto 5.9 K/mm3 (1.3-6.7); Neutrophils Percent Auto 78.1 % (45.5-73.1); Platelet Count Result 288 k/mm3 (150-375); Red Blood Count 4.79 M/mm3 (4.6-6.20); Red Cell Distribution Width 14.2 % (11.5-14.5); White Blood Count 7.6 K/mm3 (4.5-10.0)
[2020-06-14 04:39] LABS: Alanine Aminotransferase 34 U/L (4-50); Albumin Level 2.7 g/dL (3.5-5.1); Alkaline Phosphatase 57 U/L (38-126); Anion Gap 4 mmol/L (8-16); Aspartate Amino Transferase 52 U/L (17-59); Bilirubin,Total 0.5 mg/dL (0.2-1.3); Blood Urea Nitrogen 37 mg/dL (9-20); CRP 7.8 mg/dL (<1.0); Calcium 7.9 mg/dL (8.4-10.2); Carbon Dioxide 32 mmol/L (22-30); Chloride 109 mmol/L (98-107); Estimated CRCL calculation 69 ml/min; Estimated Glomerular Filt Rate > 60; Glucose 206 mg/dL (75-110); Lactate Dehydrogenase 766 U/L (313-618); Potassium 4.2 mmol/L (3.4-5.0); Sodium 145 mmol/L (137-145)
[2020-06-14] MEDS: ENOXAPARIN 40 MG/0.4 ML SYRINGE SUB-Q ×2 (08:25→20:31)
[2020-06-14] MEDS: EZETIMIBE 10 MG TABLET PO (08:25)
[2020-06-14] MEDS: guaiFENesin 12 HR 600 MG TABCR 1200 MG PO ×2 (08:26→20:31)
[2020-06-14] MEDS: LORATADINE 10 MG TABLET PO (08:26)
[2020-06-14] MEDS: DEXAMETHASONE SOD PHOS INJ 4 MG/ML VIAL 6 MG IV PUSH (08:26)
[2020-06-14 08:39] LABS: Glucose Point of Care 162 (65-105)
[2020-06-14 12:03] LABS: Glucose Point of Care 139 (65-105)
--- NOTE | 2020-06-14 16:06 | PM.IMPN ---
Progress Note: A&P Assessment and Plan (1) Acute respiratory failure with hypoxia: Code(s): J96.01 - Acute respiratory failure with hypoxia Status: Acute Assessment and Plan: Secondary to COVID-19. CTA negative for pulmonary embolism. He was requiring up to 15 L per high-flow nasal cannula with 15 L non-rebreather and was transitioned to Airvo on 06/13/20. He is maintaining adequate oxygen saturations on 60 L/min. O2 sats seem to briefly decline with coughing or long conversation but improve when resting. He is mildly tachpneic today but breathing is nonlabored. Continue with Airvo Continue pulse oximetry Appreciate respiratory therapy eval. Continue bronchodilators Plan as outlined below (2) Pneumonia due to COVID-19 virus: Code(s): U07.1 - COVID-19; J12.82 - Pneumonia due to coronavirus disease 2019 Status: Acute Assessment and Plan: Symptom onset approximately 3 days prior to presentation. Patient tested positive on 06/11/20. CXR at presentation showed moderate amount of ill-defined bilateral acute airspace disease. CTA with evidence of extensive bilateral pulmonary and infiltrates. CXR repeated 06/13 showed significant progression and extensive bilateral acute airspace disease. Airvo device in use. Monitor oxygen requirements closely. He is currently IMU status but will consider transition to ICU status if further decline in oxygenation/decompensation. Continue Remdesivir for up to 5 days. Started on 06/12/2020 Continue dexamethasone for up to 10 days. Started on 06/12/2020 Received COVID-19 convalescent plasma on 06/13/20. Supplemental O2 as noted above. Continuous pulse ox monitoring given increased O2 requirements Supportive care to include bronchodilators, expectorants, antipyretics, incentive spirometry, PEP therapy Trend acute phase reactants Prone positioning encouraged (3) DM w/o complication type II, uncontrolled: Qualifiers: Glycemic state: with hyperglycemia Qualified Code(s): E11.65 - Type 2 diabetes mellitus with hyperglycemia Code(s): E11.65 - Type 2 diabetes mellitus with hyperglycemia Status: Acute Assessment and Plan: A1c is 9.0 (06/11/20). Glucose has been elevated above target with some readings in the 300s. This is likely worsened by IV steroids. Fasting glucose elevated at 206 this morning. Last glucose 139. Accu-Cheks ACHS, high dose sliding-scale insulin, and hypoglycemic protocol ordered Continue Lantus. Increase to 32 units, a 20% reduction from his home dose. Home medications including metformin and Invokana currently held due to possible renal effects during acute illness (4) Essential (primary) hypertension: Code(s): I10 - Essential (primary) hypertension Status: Acute Assessment and Plan: Blood pressure reviewed has been fairly well controlled in the low-normal range. Last BP 117/58 Lisinopril on hold Monitor BP daily (5) Sinus bradycardia: Code(s): R00.1 - Bradycardia, unspecified Status: Acute Assessment and Plan: HR declines to 40s when sleeping. Hovers in 50-60s when at rest. He is asymptomatic. EKG upon presentation reviewed and shows sinus rhythm. Suspect he has a physiologic low resting heart rate. Continue to monitor on telemetry. Subjective Date/time seen: 06/14/20 16:06 Interval history: Date of service: 06/15/2019 Naman Glaser is a 74-year-old male with history insulin-dependent type 2 diabetes mellitus, hypertension, hyperlipidemia, and gout who is seen in follow-up for COVID-19 pneumonia. He continues to feel improved. He denies shortness of breath at rest. He feels he is coughing less frequently and his cough is becoming more productive. He has been lying in the prone position. He has gotten up to use the commode only and does have increased dyspnea with this but is able to recover reasonably quickly. He denies chest p
[2020-06-14 17:07] LABS: Glucose Point of Care 189 (65-105)
[2020-06-14] MEDS: REMDESIVIR 100 MG/NS 250 ML 100 MG/250 ML BAG 250 MG IVPB (20:30)
[2020-06-14] MEDS: INSULIN GLARGINE (*BKC) 100 UNITS/ML 32 UNITS SUB-Q (20:31)
[2020-06-14 20:41] LABS: Glucose Point of Care 236 (65-105)
--- NOTE | 2020-06-14 23:58 | PCRCNOTE ---
Due to pts increased WOB, oxygen flow on Airvo increased to 60LPM. KAREY Ellis notified.
[2020-06-15] VITALS (50 sets, daily range): BP systolic 81–137; BP diastolic 52–79; PULSE 47–103; RESP 18–36; TEMP 36.3–38.9; O2SAT 86–98; BMI 26.1
[2020-06-15 01:31] LABS: Glucose Point of Care 155 (65-105)
[2020-06-15] MEDS: ALBUTEROL SULFATE NEB 2.5 MG/0.5 ML INH INHALATION ×4 (03:33→19:58)
[2020-06-15] MEDS: IPRATROPIUM BR 0.02% INH SOLN 0.5 MG/2.5 ML VIAL INHALATION ×4 (03:33→19:58)
[2020-06-15 03:51] LABS: Basophils Percent Auto 0.4 % (0.2-1.2); Hematocrit 41.3 % (42.0-52.0); Hemoglobin 13.4 g/dL (14.0-18.0); Immature Granulocyte Absolute 0.15 K/mm3 (0.00-0.031); Immature Granulocyte Percent A 1.8 % (0-0.5); Lymphocytes Absolute Auto 1.11 K/mm3 (0.9-3.2); Mean Corpuscular HGB Conc 32.4 g/dl (32-36); Mean Corpuscular Hemoglobin 28.8 pg (26-34); Mean Corpuscular Volume 88.8 fl (80-100); Mean Platelet Volume 9.3 fl (7.4-10.4); Monocytes Absolute Auto 0.4 K/mm3 (0.1-0.6); Monocytes Percent Auto 4.4 % (2.6-8.5); Neutrophils Absolute Auto 6.9 K/mm3 (1.3-6.7); Neutrophils Percent Auto 80.4 % (45.5-73.1); Platelet Count Result 297 k/mm3 (150-375); Red Blood Count 4.65 M/mm3 (4.6-6.20); Red Cell Distribution Width 14.2 % (11.5-14.5); White Blood Count 8.5 K/mm3 (4.5-10.0)
[2020-06-15 04:59] LABS: Alanine Aminotransferase 25 U/L (4-50); Albumin Level 2.5 g/dL (3.5-5.1); Alkaline Phosphatase 57 U/L (38-126); Anion Gap 4 mmol/L (8-16); Aspartate Amino Transferase 35 U/L (17-59); Bilirubin,Total 0.6 mg/dL (0.2-1.3); Blood Urea Nitrogen 29 mg/dL (9-20); CRP 19.8 mg/dL (<1.0); Calcium 7.6 mg/dL (8.4-10.2); Carbon Dioxide 29 mmol/L (22-30); Chloride 110 mmol/L (98-107); Estimated CRCL calculation 69 ml/min; Estimated Glomerular Filt Rate > 60; Glucose 162 mg/dL (75-110); Lactate Dehydrogenase 688 U/L (313-618); Potassium 4.1 mmol/L (3.4-5.0); Sodium 143 mmol/L (137-145)
[2020-06-15] MEDS: LORazepam INJ (*CRX) 2 MG/ML VIAL 0.5 MG IV PUSH (05:36)
--- NOTE | 2020-06-15 08:26 | WPDCNINT ---
Assessment and Plan Assessment and plan (1) Acute respiratory failure with hypoxia: Code(s): J96.01 - Acute respiratory failure with hypoxia Status: Acute Assessment and Plan: Acute respiratory failure with hypoxia likely related to COVID-19 pneumonia with increasing oxygen requirements -patient intubated on 06/15/2020 and placed on mechanical ventilation -FiO2 of 100% and PEEP of 10, wean FiO2 to maintain O2 sats > sat 92% -will add Pulmicort -continue albuterol and Atrovent -continue fentanyl and Versed infusion, Nimbex was added for ventilator synchrony -chest x-ray and ABGs reviewed (2) Pneumonia due to COVID-19 virus: Code(s): U07.1 - COVID-19; J12.82 - Pneumonia due to coronavirus disease 2019 Status: Acute Assessment and Plan: SARS-CoV-2 PCR positive -continue Remdesivir and dexamethasone -continue airborne, droplet and contact isolation/precautions -will add vitamin-C, vitamin-D and zinc -will trend inflammatory markers (3) DM w/o complication type II, uncontrolled: Qualifiers: Glycemic state: with hyperglycemia Qualified Code(s): E11.65 - Type 2 diabetes mellitus with hyperglycemia Code(s): E11.65 - Type 2 diabetes mellitus with hyperglycemia Status: Acute Assessment and Plan: Continue sliding scale insulin with Accu-Cheks -hemoglobin A1c this admission is 9.0 (4) Essential (primary) hypertension: Code(s): I10 - Essential (primary) hypertension Status: Acute Assessment and Plan: Will hold all antihypertensives as patient with hypotension likely related to positive pressure ventilation and sedation medications (5) Sinus bradycardia: Code(s): R00.1 - Bradycardia, unspecified Status: Acute Assessment and Plan: Continue to monitor (6) DVT prophylaxis: Code(s): Z29.9 - Encounter for prophylactic measures, unspecified Status: Acute Assessment and Plan: DVT prophylaxis: Additional Plan Discussed with Ellie, and updated her with patient's condition and plan of care. I answered all her questions Code status: Full code Critical care time spent: 53 minutes This dictation may have been done utilizing a voice recognition system. Attempts have been made to correct errors. However, there may be uncorrected grammatical, spelling, and recognition errors present. Due to a high probability of clinically significant, life threatening deterioration, the patient required my highest level of preparedness to intervene emergently and I personally spent this critical care time directly and personally managing the patient. This critical care time included obtaining a history; examining the patient; pulse oximetry; ordering and review of studies; arranging urgent treatment with development of a management plan; evaluation of patient's response to treatment; frequent reassessment; and discussions with other providers. It was exclusive of separately billable procedures and treating other patients and teaching time. Please see Assessment and Plan section and the rest of the note for further information on patient assessment and treatment Sound Engineer Consult Note Consult date: 06/15/20 Time Seen: 08:40 HPI: Naman Glaser is a 74 year old male with past medical history of diabetes type 2, essential hypertension, gout, mixed hyperlipidemia presented the ED on 06/11/2020 after he developed dry cough, increasing fatigue, for appetite, insomnia and just not feeling too good. Patient received his COVID-19 19 vaccine on May 26 and soon after that he started feeling poorly according the records. He denies any fevers or chills at the time of admission, no recent travel or exposure to COVID-19 patients. He also denied loss of taste or smell at the time of admission. Moderate amount of ill-defined bilateral acute airspace disease, patient was started on antibiotics, dexamethasone for presumed COVID-19 pneumonia. Chest CTA on 0
--- NOTE | 2020-06-15 08:41 | P.PNIM_ITS ---
Progress Note: A&P Assessment and Plan (1) Acute respiratory failure with hypoxia: Code(s): J96.01 - Acute respiratory failure with hypoxia Status: Acute Assessment and Plan: Secondary to COVID-19. CTA negative for pulmonary embolism. He continues to have worsening oxygenation and increased supplemental oxygen requirements. Currently requiring continuous BiPAP with 60 L/min and 100% FiO2. O2 sats are remaining stable in 92-95% range. He is tachypneic and breathing is labored. * Continuous BiPAP. * Obtain ABG * Transition to ICU. Appreciate apple sorter consultation. Considering need for intubation. Will await ABG results and apple sorter eval. Patient agreeable. * Continuous pulse oximetry * Appreciate respiratory therapy eval. * Continue bronchodilators * Plan as outlined below (2) Pneumonia due to COVID-19 virus: Code(s): U07.1 - COVID-19; J12.82 - Pneumonia due to coronavirus disease 2019 Status: Acute Assessment and Plan: Symptom onset approximately 3 days prior to presentation. He received first dose of COVID vaccine on 05/26/20. SARS-COV test positive on 06/11/20. CXR at presentation showed moderate amount of ill-defined bilateral acute airspace disease. CTA with evidence of extensive bilateral pulmonary and infiltrates. CXR repeated 06/13 showed significant progression and extensive bilateral acute airspace disease, unchanged on repeat CXR 06/15 * As above. BiPAP. Transfer to ICU. Await ABG. Consider intubation. * Continue Remdesivir, started on 06/12/2020 * Continue dexamethasone for up to 10 days. Started on 06/12/2020 * Received COVID-19 convalescent plasma on 06/13/20. * Supportive care to include bronchodilators, expectorants, antipyretics, incentive spirometry, PEP therapy * Trend acute phase reactants * Prone positioning encouraged (3) DM w/o complication type II, uncontrolled: Qualifiers: Glycemic state: with hyperglycemia Qualified Code(s): E11.65 - Type 2 diabetes mellitus with hyperglycemia Code(s): E11.65 - Type 2 diabetes mellitus with hyperglycemia Status: Acute Assessment and Plan: A1c is 9.0 (06/11/20). Glucose has been elevated above target with some readings in the 300s. This is likely worsened by IV steroids. Fasting glucose imrpoved this morning at 162. * Accu-Cheks ACHS, high dose sliding-scale insulin, and hypoglycemic protocol ordered * Continue Lantus at 32 units, a 20% reduction from his home dose. * Home medications including metformin and Invokana currently held due to possible renal effects during acute illness (4) Essential (primary) hypertension: Code(s): I10 - Essential (primary) hypertension Status: Acute Assessment and Plan: Blood pressure reviewed and has been fairly well controlled in the low-normal range. Last BP 134/77 * Lisinopril on hold * Monitor BP daily (5) Sinus bradycardia: Code(s): R00.1 - Bradycardia, unspecified Status: Acute Assessment and Plan: HR declines to 40s when sleeping. Hovers in 50-60s when at rest. He is asymptomatic. EKG upon presentation reviewed and shows sinus rhythm. Suspect he has a physiologic low resting heart rate. * Continue to monitor on telemetry. Additional Plan Case discussed with supervising physician and apple sorter. Will plan to transfer care to supervising physician given complex course of illness. Subjective Date/time seen: 06/15/20 08:41 Interval history: Date of service: 06/16/2019 Naman Glaser is a 74-year-old male with history of
--- NOTE | 2020-06-15 08:41 | PM.IMPN ---
Progress Note: A&P Assessment and Plan (1) Acute respiratory failure with hypoxia: Code(s): J96.01 - Acute respiratory failure with hypoxia Status: Acute Assessment and Plan: Secondary to COVID-19. CTA negative for pulmonary embolism. He continues to have worsening oxygenation and increased supplemental oxygen requirements. Currently requiring continuous BiPAP with 60 L/min and 100% FiO2. O2 sats are remaining stable in 92-95% range. He is tachypneic and breathing is labored. Continuous BiPAP. Obtain ABG Transition to ICU. Appreciate customer service teller consultation. Considering need for intubation. Will await ABG results and customer service teller eval. Patient agreeable. Continuous pulse oximetry Appreciate respiratory therapy eval. Continue bronchodilators Plan as outlined below (2) Pneumonia due to COVID-19 virus: Code(s): U07.1 - COVID-19; J12.82 - Pneumonia due to coronavirus disease 2019 Status: Acute Assessment and Plan: Symptom onset approximately 3 days prior to presentation. He received first dose of COVID vaccine on 05/26/20. SARS-COV test positive on 06/11/20. CXR at presentation showed moderate amount of ill-defined bilateral acute airspace disease. CTA with evidence of extensive bilateral pulmonary and infiltrates. CXR repeated 06/13 showed significant progression and extensive bilateral acute airspace disease, unchanged on repeat CXR 06/15 As above. BiPAP. Transfer to ICU. Await ABG. Consider intubation. Continue Remdesivir, started on 06/12/2020 Continue dexamethasone for up to 10 days. Started on 06/12/2020 Received COVID-19 convalescent plasma on 06/13/20. Supportive care to include bronchodilators, expectorants, antipyretics, incentive spirometry, PEP therapy Trend acute phase reactants Prone positioning encouraged (3) DM w/o complication type II, uncontrolled: Qualifiers: Glycemic state: with hyperglycemia Qualified Code(s): E11.65 - Type 2 diabetes mellitus with hyperglycemia Code(s): E11.65 - Type 2 diabetes mellitus with hyperglycemia Status: Acute Assessment and Plan: A1c is 9.0 (06/11/20). Glucose has been elevated above target with some readings in the 300s. This is likely worsened by IV steroids. Fasting glucose imrpoved this morning at 162. Accu-Cheks ACHS, high dose sliding-scale insulin, and hypoglycemic protocol ordered Continue Lantus at 32 units, a 20% reduction from his home dose. Home medications including metformin and Invokana currently held due to possible renal effects during acute illness (4) Essential (primary) hypertension: Code(s): I10 - Essential (primary) hypertension Status: Acute Assessment and Plan: Blood pressure reviewed and has been fairly well controlled in the low-normal range. Last BP 134/77 Lisinopril on hold Monitor BP daily (5) Sinus bradycardia: Code(s): R00.1 - Bradycardia, unspecified Status: Acute Assessment and Plan: HR declines to 40s when sleeping. Hovers in 50-60s when at rest. He is asymptomatic. EKG upon presentation reviewed and shows sinus rhythm. Suspect he has a physiologic low resting heart rate. Continue to monitor on telemetry. Additional Plan Case discussed with supervising physician and customer service teller. Will plan to transfer care to supervising physician given complex course of illness. Subjective Date/time seen: 06/15/20 08:41 Interval history: Date of service: 06/16/2019 Naman Glaser is a 74-year-old male with history of insulin-dependent type 2 diabetes mellitus, hypertension, hyperlipidemia, and gout who received his first dose of COVID vaccine on 05/26/20 who is seen in follow-up for COVID-19 pneumonia. He is having increased O2 requirements and progressive dyspnea. He feels very tired today from working to breathe. He is coughing more frequently with occasional sputum production. His appetite is poor and he did n
[2020-06-15] MEDS: DEXAMETHASONE SOD PHOS INJ 4 MG/ML VIAL 6 MG IV PUSH (08:47)
[2020-06-15] MEDS: ENOXAPARIN 40 MG/0.4 ML SYRINGE SUB-Q ×2 (08:47→20:30)
[2020-06-15] MEDS: SODIUM CHLORIDE 0.9% IV 500 ML 999 ML IV CONT (09:15)
[2020-06-15 09:17] LABS: Glucose Point of Care 109 (65-105)
[2020-06-15] MEDS: MIDAZOLAM 100MG/NS 100ML(*CRX) 100 MG/100 ML BAG IV CONT ×2 (09:20→09:45)
[2020-06-15] MEDS: FENTANYL 2,500MCG/NS250ML(*CRX 2,500 MCG/250 ML BAG IV CONT (09:20)
--- NOTE | 2020-06-15 09:27 | WPDPROCEDUR ---
Procedures Intubation Intubation Date: 06/15/20 Intubation Time: 09:05 A pre-procedural Time-Out was completed immediately before starting the procedure and confirmed: Patient Identification, Site, Procedure, Patient Position and the Availability of Requisite Equipment: Yes Sedative: etomidate Paralytic: rocuronium Laryngoscope: fiber optic video scope Assist device used: fiber optic device ET tube size: 8 Tube secured depth (cm): 25 Tube secured location: lips Tube placement confirmation: visualized tube passing through cords, equal breath sounds bilaterally, no breath sounds over epigastrium and confirmation by capnometry Patient tolerated procedure: well and no complications Intubation complications: none
[2020-06-15] MEDS: FENTANYL 2,500MCG/NS250ML(*CRX 2,500 MCG/250 ML BAG 10 MCG IV CONT (09:45)
[2020-06-15] MEDS: MIDAZOLAM HCL (*CRX) 2 MG/2 ML VIAL 4 MG IV PUSH (09:50)
[2020-06-15] MEDS: ROCURONIUM BROMIDE 50 MG/5 ML VIAL IV PUSH (10:10)
[2020-06-15] MEDS: CISATRACURIUM BESYLATE 20 MG/10 ML VIAL 13.1 MG IV PUSH (10:29)
[2020-06-15] MEDS: CISATRACURIUM BESYLATE 200 MG in DEXTROSE 5% 80 ML 7.86 ML IV CONT (10:35)
[2020-06-15 10:53] LABS: Alveolar/Arterial O2 Gradient 588.9 mmHg; Base Excess ABG 1.2 mEq/l (+/-2.0); Fractional Inspired Oxygen 100 %; HCO3 ABG 26.3 mEq/l (22.0-26.0); Oxygen Content ABG 17.9 %vol (16.0-22.0); Oxygen Saturation ABG 95.9 % (95.0-100.0); Oxyhemoglobin 94.3 % THb (90.0-100.0); PCO2 ABG 43.5 mmHg (35.0-45.0); PO2 ABG 80.6 mmHg (80.0-100.0); PO2 FiO2 Ratio Arterial Blood 0.81 %; Total Hemoglobin 13.5 g/dL (12.0-18.0)
[2020-06-15 10:59] LABS: Arterial Blood Gas PEEP 10 cmH2O; Arterial Blood Gas Tidal Volume 430 ml; Arterial Blood Gas Vent Mode CMV; Arterial Blood Gas Ventilator rate 26 /MIN; Device VENTILATOR; Modified Allen's Test Pass; Site Drawn RIGHT RADIAL
[2020-06-15] MEDS: SODIUM CHLORIDE 0.9% IV 500 ML IV CONT (12:10)
[2020-06-15 12:46] LABS: Glucose Point of Care 100 (65-105)
[2020-06-15] MEDS: NOREPINEPHRINE 8 MG/D5W 250 ML 8 MG/250 ML BAG 9.38 MG IV CONT (14:30)
[2020-06-15] MEDS: CENTRAL LINE FLUSH 10 ML IV PUSH (14:51)
[2020-06-15 18:00] LABS: Glucose Point of Care 200 (65-105)
[2020-06-15] MEDS: CISATRACURIUM BESYLATE 200 MG in DEXTROSE 5% 80 ML 10.48 ML IV CONT (19:46)
[2020-06-15] MEDS: BUDESONIDE RESPULE NEB 0.5 MG/2 ML AMP INHALATION (19:58)
[2020-06-15] MEDS: REMDESIVIR 100 MG/NS 250 ML 100 MG/250 ML BAG 250 MG IVPB (20:29)
[2020-06-15] MEDS: INSULIN GLARGINE (*BKC) 100 UNITS/ML 10 UNITS SUB-Q (20:30)
[2020-06-15 20:40] LABS: Glucose Point of Care 225 (65-105)
[2020-06-16] VITALS (31 sets, daily range): BP systolic 88–119; BP diastolic 58–98; PULSE 48–76; RESP 26–28; TEMP 36.4–36.9; O2SAT 92–97
[2020-06-16] MEDS: CENTRAL LINE FLUSH 10 ML IV PUSH ×4 (00:32→20:19)
[2020-06-16] MEDS: INSULIN ASPART (*BKC) 100 UNITS/ML SUB-Q (00:33)
[2020-06-16 00:36] LABS: Glucose Point of Care 226 (65-105)
[2020-06-16] MEDS: CISATRACURIUM BESYLATE 200 MG in DEXTROSE 5% 80 ML 10.48 ML IV CONT ×2 (01:57→20:22)
[2020-06-16] MEDS: IPRATROPIUM BR 0.02% INH SOLN 0.5 MG/2.5 ML VIAL INHALATION ×4 (02:14→21:34)
[2020-06-16] MEDS: ALBUTEROL SULFATE NEB 2.5 MG/0.5 ML INH INHALATION ×4 (02:14→21:34)
[2020-06-16 04:35] LABS: Alveolar/Arterial O2 Gradient 417.6 mmHg; Carboxyhemoglobin 0.3 % THb (0-2.0); Fractional Inspired Oxygen 80 %; HCO3 ABG 26.5 mEq/l (22.0-26.0); Methemoglobin ABG 0.3 %THb (0-1.5); Oxygen Content ABG 19.6 %vol (16.0-22.0); Oxygen Saturation ABG 97.7 % (95.0-100.0); Oxyhemoglobin 96.7 % THb (90.0-100.0); PCO2 ABG 45.3 mmHg (35.0-45.0); PO2 ABG 105.2 mmHg (80.0-100.0); PO2 FiO2 Ratio Arterial Blood 1.31 %; Reduced Hemoglobin 2.7 %THb (0-5.0); Total Hemoglobin 14.3 g/dL (12.0-18.0); pH ABG 7.385 (7.350-7.450)
[2020-06-16 04:37] LABS: Hematocrit 40.9 % (42.0-52.0); Hemoglobin 13.1 g/dL (14.0-18.0); Mean Corpuscular Hemoglobin 28.9 pg (26-34); Mean Corpuscular Volume 90.3 fl (80-100); Mean Platelet Volume 9.3 fl (7.4-10.4); Platelet Count Result 380 k/mm3 (150-375); Red Blood Count 4.53 M/mm3 (4.6-6.20); Red Cell Distribution Width 14.6 % (11.5-14.5); White Blood Count 9.9 K/mm3 (4.5-10.0)
[2020-06-16 04:38] LABS: Device VENTILATOR; Modified Allen's Test Pass; Site Drawn RIGHT RADIAL
[2020-06-16 04:39] LABS: Arterial Blood Gas PEEP 10 cmH2O; Arterial Blood Gas Tidal Volume 430 ml; Arterial Blood Gas Vent Mode CMV; Arterial Blood Gas Ventilator rate 26 /MIN
[2020-06-16 04:50] LABS: D Dimer 0.97 ug/mL (<0.48)
[2020-06-16 04:56] LABS: Alanine Aminotransferase 24 U/L (4-50); Albumin Level 2.6 g/dL (3.5-5.1); Alkaline Phosphatase 58 U/L (38-126); Anion Gap 4 mmol/L (8-16); Aspartate Amino Transferase 30 U/L (17-59); Bilirubin,Total 0.4 mg/dL (0.2-1.3); Blood Urea Nitrogen 39 mg/dL (9-20); Calcium 7.7 mg/dL (8.4-10.2); Carbon Dioxide 29 mmol/L (22-30); Chloride 110 mmol/L (98-107); Estimated CRCL calculation 57 ml/min; Estimated Glomerular Filt Rate > 60; Glucose 205 mg/dL (75-110); Lactate Dehydrogenase 671 U/L (313-618); Magnesium 2.6 mg/dL (1.6-2.3); Phosphorus 4.1 mg/dL (2.5-4.5); Potassium 4.7 mmol/L (3.4-5.0); Sodium 143 mmol/L (137-145)
[2020-06-16 05:07] LABS: CRP 24.9 mg/dL (<1.0)
[2020-06-16] MEDS: ASCORBIC ACID 500 MG TABLET 1000 MG PO (08:19)
[2020-06-16] MEDS: DEXAMETHASONE SOD PHOS INJ 4 MG/ML VIAL 6 MG IV PUSH (08:19)
[2020-06-16] MEDS: EZETIMIBE 10 MG TABLET PO (08:19)
[2020-06-16] MEDS: ENOXAPARIN 40 MG/0.4 ML SYRINGE SUB-Q ×2 (08:19→20:16)
[2020-06-16] MEDS: ZINC SULFATE 220 MG CAPSULE PO (08:19)
[2020-06-16] MEDS: guaiFENesin 12 HR 600 MG TABCR 1200 MG PO (08:19)
[2020-06-16] MEDS: CHOLECALCIFEROL 1,000 UNITS TABLET 1000 UNITS PO (08:20)
[2020-06-16] MEDS: LORATADINE 10 MG TABLET PO (08:20)
[2020-06-16] MEDS: FENTANYL 2,500MCG/NS250ML(*CRX 2,500 MCG/250 ML BAG 10 MCG IV CONT (08:30)
--- NOTE | 2020-06-16 08:40 | WPDINTPN ---
Progress Note: A&P Assessment and Plan (1) Acute respiratory failure with hypoxia: Code(s): J96.01 - Acute respiratory failure with hypoxia Status: Acute Assessment and Plan: Acute respiratory failure with hypoxia likely related to COVID-19 pneumonia with increasing oxygen requirements -patient intubated on 06/15/2020 and placed on mechanical ventilation -FiO2 of 80% and PEEP of 10, wean FiO2 to maintain O2 sats > sat 92% -continue Pulmicort -continue albuterol and Atrovent -continue fentanyl and Versed infusion, Nimbex was added for ventilator synchrony -chest x-ray and ABGs reviewed (2) Pneumonia due to COVID-19 virus: Code(s): U07.1 - COVID-19; J12.82 - Pneumonia due to coronavirus disease 2019 Status: Acute Assessment and Plan: SARS-CoV-2 PCR positive -continue Remdesivir and dexamethasone -continue airborne, droplet and contact isolation/precautions -continue vitamin-C, vitamin-D and zinc -will trend inflammatory markers (3) DM w/o complication type II, uncontrolled: Qualifiers: Glycemic state: with hyperglycemia Qualified Code(s): E11.65 - Type 2 diabetes mellitus with hyperglycemia Code(s): E11.65 - Type 2 diabetes mellitus with hyperglycemia Status: Acute Assessment and Plan: Continue sliding scale insulin with Accu-Cheks -hemoglobin A1c this admission is 9.0 (4) Essential (primary) hypertension: Code(s): I10 - Essential (primary) hypertension Status: Acute Assessment and Plan: Will hold all antihypertensives as patient with hypotension likely related to positive pressure ventilation and sedation medications (5) Sinus bradycardia: Code(s): R00.1 - Bradycardia, unspecified Status: Acute Assessment and Plan: Continue to monitor (6) DVT prophylaxis: Code(s): Z29.9 - Encounter for prophylactic measures, unspecified Status: Acute Assessment and Plan: DVT prophylaxis: Lovenox Stress ulcer prophylaxis: Protonix (7) Hypotension: Code(s): I95.9 - Hypotension, unspecified Status: Acute Assessment and Plan: Likely related positive-pressure ventilation and sedation medications. Started on Levophed, currently at 2 mcg/min. -wean Levophed to maintain MAP > 65 mmHg -check lactic acid level -will obtain panculture along with UA, as patient did spike fevers T-max of 102.1? yesterday morning Additional Plan Discussed with Ellie, and updated her with patient's condition and plan of care. I answered all her questions Code status: Full code Critical care time spent: 37 minutes This dictation may have been done utilizing a voice recognition system. Attempts have been made to correct errors. However, there may be uncorrected grammatical, spelling, and recognition errors present. Due to a high probability of clinically significant, life threatening deterioration, the patient required my highest level of preparedness to intervene emergently and I personally spent this critical care time directly and personally managing the patient. This critical care time included obtaining a history; examining the patient; pulse oximetry; ordering and review of studies; arranging urgent treatment with development of a management plan; evaluation of patient's response to treatment; frequent reassessment; and discussions with other providers. It was exclusive of separately billable procedures and treating other patients and teaching time. Please see Assessment and Plan section and the rest of the note for further information on patient assessment and treatment Subjective Date/time seen: 06/16/20 08:40 Interval history: REASON FOR CONSULT: Acute hypoxic respiratory failure requiring intubation on 06/15/2020 secondary to COVID-19 pneumonia 06/16/2020: Patient remains intubated, on CMV mode of ventilation, 80% FiO2 and peep of 10. Patient on fentanyl 100 mcg/hr and Versed 3 mg/hr infusion for sed
[2020-06-16] MEDS: BUDESONIDE RESPULE NEB 0.5 MG/2 ML AMP INHALATION ×2 (08:50→21:34)
[2020-06-16] MEDS: PANTOPRAZOLE SODIUM IV 40 MG VIAL IV PUSH ×2 (09:06→20:17)
[2020-06-16 09:38] LABS: Lactic Acid Reflex 1.4 mmol/L (0.7-2.1)
--- NOTE | 2020-06-16 10:30 | PCDIET ---
Nutrition Follow-Up Complete: Nutrition Diagnosis: Inadequate oral intake related to oral intubation as evidenced by NPO status. Nutrition Goal: Patient to meet estimated nutritional needs. Goal in progress. MD ordered to start tube feedings at low rate - Glucerna 1.2 at goal of 20mL/hr with 30mL water flush every 4 hours. If medically appropriate, recommend advancing toward goal of 65mL/hr over the next 2-3 days for 1716kcal, 85g protein and 1151mL free water over 22 hour daily infusion. Last recorded weight is 91.4 kg which is increased from last review. +I/O. Bowel Motility: Last documented BM on 06/15/20 x 1. Labs Reviewed: Hgb (13.1), Hct (40.9), Glu (205), BUN (39), Alb (2.6), Agustín Ca (8.82), Mg (2.6) Meds Noted: Albuterol, Nimbex, Remdesivir, Vitamin C, Decadron, Vitamin D, Pulmicort, Zetia, Zinc Sulfate, Fentanyl, Novolog, Lantus, Atrovent, Versed, Levophed Additional Notes: No documented skin breakdown. Will continue to monitor with same goal. Nutrition Monitoring and Evaluation: Follow up every Friday/Friday. Follow daily in ICU rounds.
[2020-06-16 11:18] LABS: Add Urine Microscopic? YES; Appearance Urine Cloudy (Clear); Bilirubin Urine Negative (Negative); Blood Urine Negative (Negative); Color Urine Yellow (Yellow); Glucose Urine UA 1+ mg/dL (Negative); Ketones Urine Negative (Negative); Leukocyte Esterase Ur Negative LEU/UL (NEGATIVE); Mucus Urine Rare /lpf; Nitrate Urine Negative (Negative); Protein Urine 1+ mg/dL (Negative); RBC Urine 0-2 /hpf (0-2); Specific Grav Ur 1.029 (1.001-1.035); Urobilinogen Urine Negative mg/dL (<2.0)
--- NOTE | 2020-06-16 12:21 | PM.IMPN ---
Progress Note: A&P Assessment and Plan (1) Acute respiratory failure with hypoxia: Code(s): J96.01 - Acute respiratory failure with hypoxia Status: Acute Assessment and Plan: PATIENT IS CURRENTLY ON VENTILATOR SUPPORT VENT MANAGEMENT PER SECURITIES AND REAL ESTATE DIRECTOR SUPPORTIVE CARE (2) Pneumonia due to COVID-19 virus: Code(s): U07.1 - COVID-19; J12.82 - Pneumonia due to coronavirus disease 2019 Status: Acute Assessment and Plan: REMDESIVIR AND DEXAMETHASONE CONTINUE TO MONITOR CONTINUE SUPPORTIVE CARE (3) Essential (primary) hypertension: Code(s): I10 - Essential (primary) hypertension Status: Acute Assessment and Plan: CONTINUE TO MONITOR PATIENT HAS BEEN RATHER HYPOTENSIVE (4) DM w/o complication type II, uncontrolled: Qualifiers: Glycemic state: with hyperglycemia Qualified Code(s): E11.65 - Type 2 diabetes mellitus with hyperglycemia Code(s): E11.65 - Type 2 diabetes mellitus with hyperglycemia Status: Acute Assessment and Plan: CONTINUE LANTUS ACCU-CHEKS Q.6 HOURS INSULIN SLIDING SCALE NEEDED (5) Idiopathic gout, unspecified site: Code(s): M10.00 - Idiopathic gout, unspecified site Status: Acute Assessment and Plan: CONTINUE ALLOPURINOL DOES NOT APPEAR TO HAVE A GOUT ATTACK ON PHYSICAL EXAM NO REMARKABLE FINDINGS (6) Sinus bradycardia: Code(s): R00.1 - Bradycardia, unspecified Status: Acute Assessment and Plan: PATIENT HAS BEEN BRADYCARDIC HOWEVER TRENDING UP WILL CONTINUE TO MONITOR SINUS BRADYCARDIA Subjective Date/time seen: 06/16/20 12:21 Patient is on ventilator Review of Systems Review of Systems: ROS unobtainable: Yes unobtainable due to medical condition Exam Narrative: Exam Narrative: patient is ventilator support Const: General: comfortable, no acute distress and other ( in sync with med) Nutritional Appearance: average body habitus Orientation/consciousness: Other orientation findings ( under sedation) HENMT: Head: normal to inspection, normocephalic and atraumatic Ears: hearing grossly normal bilaterally Face and sinus: normal facial exam Eyes: General: appearance normal, both eyes and all related structures Pupils: Equal, round and reactive pupils present EOM: EOMs intact bilaterally Neck: Neck: full ROM, no lymphadenopathy and no JVD Thyroid: thyroid normal Lymphatic: no lymphadenopathy noted Resp: Effort & Inspection: normal respiratory effort and able to speak in complete sentences Auscultation: clear to auscultation bilaterally Cardio: Jugular venous distension: no JVD Rate: regular rate Rhythm: regular rhythm Heart sounds: S1 normal heart sound present and S2 normal heart sound present GI: GI Palp: Yes Soft to palpation and Yes No hepatosplenomegaly present : General: Yes deferred Skin: Rashes: no rashes Wounds: no wounds Neuro: Cranial nerves: Yes Equal, round and reactive pupils present Cognition (Neuro): abnormal cognition ( under sedation on ventilator support) Extrem: General: normal to inspection, full ROM, no joint enlargement and no pedal edema Objective Data Vital Signs Vital Signs: Vital Signs - 24 hr 06/15/20 13:54 06/15/20 14:00 06/15/20 14:02 Temperature Pulse Rate 75 51 L 94 Respiratory Rate 26 H Blood Pressure Pulse Oximetry 97 06/15/20 14:08 06/15/20 14:16 06/15/20 14:17 Temperature Pulse Rate 51 L 52 L 52 L Respiratory Rate 26 H 26 H 26 H Blood Pressure Pulse Oximetry 06/15/20 14:29 06/15/20 14:30 06/15/20 14:51 Temperature Pulse Rate 50 L 50 L 57 L Respiratory Rate 26 H 26 H Blood Pressure 81/52 L 83/53 L Pulse Oximetry 06/15/20 15:30 06/15/20 16:00 06/15/20 16:26 Temperature 97.4 F L Pulse Rate 103 H 89 89 Respiratory Rate 26 H 26 H Blood Pressure 137/79 122/66 Pulse Oximetry 94 06/15/20 16:27 06/15/20 16:51 06/15/20 17:41 Temperature
[2020-06-16] MEDS: CISATRACURIUM BESYLATE 200 MG in DEXTROSE 5% 80 ML 13.1 ML IV CONT (12:27)
[2020-06-16 17:15] LABS: Glucose Point of Care 183 (65-105)
[2020-06-16] MEDS: MIDAZOLAM 100MG/NS 100ML(*CRX) 100 MG/100 ML BAG IV CONT (17:35)
[2020-06-16 18:15] LABS: Glucose Point of Care 160 (65-105)
[2020-06-16] MEDS: INSULIN GLARGINE (*BKC) 100 UNITS/ML 10 UNITS SUB-Q (21:38)
[2020-06-16] MEDS: REMDESIVIR 100 MG/NS 250 ML 100 MG/250 ML BAG 250 MG IVPB (21:38)
[2020-06-16 21:58] LABS: Glucose Point of Care 170 (65-105)
[2020-06-17] VITALS (48 sets, daily range): BP systolic 93–108; BP diastolic 55–65; PULSE 51–63; RESP 26–28; TEMP 36.7–37.7; O2SAT 91–95
[2020-06-17 00:29] LABS: Glucose Point of Care 188 (65-105)
[2020-06-17] MEDS: ALBUTEROL SULFATE NEB 2.5 MG/0.5 ML INH INHALATION ×4 (02:25→20:11)
[2020-06-17] MEDS: IPRATROPIUM BR 0.02% INH SOLN 0.5 MG/2.5 ML VIAL INHALATION ×4 (02:25→20:10)
[2020-06-17] MEDS: CISATRACURIUM BESYLATE 200 MG in DEXTROSE 5% 80 ML 13.1 ML IV CONT (04:09)
[2020-06-17 04:23] LABS: Base Excess ABG 1.9 mEq/l (+/-2.0); Fractional Inspired Oxygen 50 %; HCO3 ABG 26.6 mEq/l (22.0-26.0); Methemoglobin ABG 0.2 %THb (0-1.5); Oxygen Content ABG 19.3 %vol (16.0-22.0); Oxygen Saturation ABG 92.8 % (95.0-100.0); Oxyhemoglobin 91.4 % THb (90.0-100.0); PCO2 ABG 41.6 mmHg (35.0-45.0); PO2 ABG 63.7 mmHg (80.0-100.0); PO2 FiO2 Ratio Arterial Blood 1.27 %; Reduced Hemoglobin 8.4 %THb (0-5.0); pH ABG 7.423 (7.350-7.450)
[2020-06-17 04:24] LABS: Arterial Blood Gas PEEP 10 cmH2O; Arterial Blood Gas Tidal Volume 430 ml; Arterial Blood Gas Vent Mode CMV; Arterial Blood Gas Ventilator rate 26 /MIN; Device VENTILATOR; Modified Allen's Test Unable to perform; Site Drawn LEFT RADIAL
[2020-06-17] MEDS: CENTRAL LINE FLUSH 10 ML IV PUSH ×3 (04:51→20:02)
[2020-06-17 05:06] LABS: Hematocrit 39.2 % (42.0-52.0); Hemoglobin 12.4 g/dL (14.0-18.0); Mean Corpuscular HGB Conc 31.6 g/dl (32-36); Mean Corpuscular Hemoglobin 28.6 pg (26-34); Mean Corpuscular Volume 90.5 fl (80-100); Mean Platelet Volume 9.1 fl (7.4-10.4); Platelet Count Result 276 k/mm3 (150-375); Red Blood Count 4.33 M/mm3 (4.6-6.20); Red Cell Distribution Width 14.5 % (11.5-14.5); White Blood Count 7.7 K/mm3 (4.5-10.0)
[2020-06-17 05:17] LABS: Alanine Aminotransferase 17 U/L (4-50); Albumin Level 2.3 g/dL (3.5-5.1); Alkaline Phosphatase 49 U/L (38-126); Anion Gap 2 mmol/L (8-16); Aspartate Amino Transferase 20 U/L (17-59); Bilirubin,Total 0.4 mg/dL (0.2-1.3); Blood Urea Nitrogen 41 mg/dL (9-20); Calcium 7.9 mg/dL (8.4-10.2); Carbon Dioxide 30 mmol/L (22-30); Chloride 112 mmol/L (98-107); Estimated CRCL calculation 57 ml/min; Estimated Glomerular Filt Rate > 60; Glucose 199 mg/dL (75-110); Magnesium 2.7 mg/dL (1.6-2.3); Phosphorus 2.9 mg/dL (2.5-4.5); Potassium 4.4 mmol/L (3.4-5.0); Sodium 144 mmol/L (137-145)
[2020-06-17] MEDS: FENTANYL 2,500MCG/NS250ML(*CRX 2,500 MCG/250 ML BAG 10 MCG IV CONT (07:55)
[2020-06-17] MEDS: ENOXAPARIN 40 MG/0.4 ML SYRINGE SUB-Q ×2 (07:59→20:03)
[2020-06-17] MEDS: DEXAMETHASONE SOD PHOS INJ 4 MG/ML VIAL 6 MG IV PUSH (07:59)
[2020-06-17] MEDS: ASCORBIC ACID 500 MG TABLET 1000 MG PO (07:59)
[2020-06-17] MEDS: EZETIMIBE 10 MG TABLET PO (07:59)
[2020-06-17] MEDS: LORATADINE 10 MG TABLET PO (07:59)
[2020-06-17] MEDS: PANTOPRAZOLE SODIUM IV 40 MG VIAL IV PUSH ×2 (07:59→20:03)
[2020-06-17] MEDS: CHOLECALCIFEROL 1,000 UNITS TABLET 1000 UNITS PO (07:59)
[2020-06-17] MEDS: ZINC SULFATE 220 MG CAPSULE PO (07:59)
--- NOTE | 2020-06-17 08:35 | WPDINTPN ---
Progress Note: A&P Assessment and Plan (1) Acute respiratory failure with hypoxia: Code(s): J96.01 - Acute respiratory failure with hypoxia Status: Acute Assessment and Plan: Acute respiratory failure with hypoxia likely related to COVID-19 pneumonia with increasing oxygen requirements -patient intubated on 06/15/2020 and placed on mechanical ventilation -FiO2 of 50% and PEEP of 10, wean FiO2 to maintain O2 sats > sat 92% -continue Pulmicort -continue albuterol and Atrovent -continue fentanyl and Versed infusion, Nimbex was added for ventilator synchrony, will start weaning Nimbex to off -chest x-ray and ABGs reviewed (2) Pneumonia due to COVID-19 virus: Code(s): U07.1 - COVID-19; J12.82 - Pneumonia due to coronavirus disease 2018 Status: Acute Assessment and Plan: SARS-CoV-2 PCR positive -continue Remdesivir and dexamethasone -continue airborne, droplet and contact isolation/precautions -continue vitamin-C, vitamin-D and zinc -will trend inflammatory markers (3) DM w/o complication type II, uncontrolled: Qualifiers: Glycemic state: with hyperglycemia Qualified Code(s): E11.65 - Type 2 diabetes mellitus with hyperglycemia Code(s): E11.65 - Type 2 diabetes mellitus with hyperglycemia Status: Acute Assessment and Plan: Continue sliding scale insulin with Accu-Cheks -hemoglobin A1c this admission is 9.0 (4) Essential (primary) hypertension: Code(s): I10 - Essential (primary) hypertension Status: Acute Assessment and Plan: Will hold all antihypertensives as patient with hypotension likely related to positive pressure ventilation and sedation medications (5) Sinus bradycardia: Code(s): R00.1 - Bradycardia, unspecified Status: Acute Assessment and Plan: Continue to monitor (6) DVT prophylaxis: Code(s): Z29.9 - Encounter for prophylactic measures, unspecified Status: Acute Assessment and Plan: DVT prophylaxis: Lovenox 40 mg SQ q.12 hours Stress ulcer prophylaxis: Protonix (7) Hypotension: Code(s): I95.9 - Hypotension, unspecified Status: Acute Assessment and Plan: Likely related positive-pressure ventilation and sedation medications. Started on Levophed, currently at 2 mcg/min. Currently off Levophed -lactic acid is 1.4 -patient has been pancultured, cultures are pending, -patient has been afebrile -UA was unremarkable Additional Plan Discussed with Ellie, and updated her with patient's condition and plan of care. I answered all her questions Code status: Full code Critical care time spent: 34 minutes This dictation may have been done utilizing a voice recognition system. Attempts have been made to correct errors. However, there may be uncorrected grammatical, spelling, and recognition errors present. Due to a high probability of clinically significant, life threatening deterioration, the patient required my highest level of preparedness to intervene emergently and I personally spent this critical care time directly and personally managing the patient. This critical care time included obtaining a history; examining the patient; pulse oximetry; ordering and review of studies; arranging urgent treatment with development of a management plan; evaluation of patient's response to treatment; frequent reassessment; and discussions with other providers. It was exclusive of separately billable procedures and treating other patients and teaching time. Please see Assessment and Plan section and the rest of the note for further information on patient assessment and treatment Subjective Date/time seen: 06/17/20 08:35 Interval history: REASON FOR CONSULT: Acute hypoxic respiratory failure requiring intubation on 06/15/2020 secondary to COVID-19 pneumonia 06/17/2020: Patient remains intubated, on CMV mode of ventilation, 50% FiO2 and peep of 10. Patient on fentanyl 100 mcg/hr a
[2020-06-17] MEDS: BUDESONIDE RESPULE NEB 0.5 MG/2 ML AMP INHALATION ×2 (08:52→20:10)
--- NOTE | 2020-06-17 11:33 | PM.IMPN ---
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 (2) Pneumonia due to COVID-19 virus: Code(s): U07.1 - COVID-19; J12.82 - Pneumonia due to coronavirus disease 2019 Status: Acute Assessment and Plan: Continue Remdesivir and Dexamethasone Await cultures (3) DM w/o complication type II, uncontrolled: Qualifiers: Glycemic state: with hyperglycemia Qualified Code(s): E11.65 - Type 2 diabetes mellitus with hyperglycemia Code(s): E11.65 - Type 2 diabetes mellitus with hyperglycemia Status: Acute Assessment and Plan: Continue to monitor Insulin sliding scale as needed Subjective Date/time seen: 06/17/20 11:33 Patient is on ventilator support Review of Systems Review of Systems: ROS unobtainable: Yes unobtainable due to medical condition (On ventilator support) Exam Narrative: Exam Narrative: Laying in bed on ventilator support Const: General: comfortable and uncomfortable (Under sedation) Nutritional Appearance: average body habitus Orientation/consciousness: Other orientation findings (Under sedation) HENMT: Head: normal to inspection, normocephalic and atraumatic Ears: hearing grossly normal bilaterally Face and sinus: normal facial exam Eyes: General: appearance normal, both eyes and all related structures Pupils: Equal, round and reactive pupils present EOM: EOMs intact bilaterally Neck: Neck: full ROM, no lymphadenopathy and no JVD Thyroid: thyroid normal Lymphatic: no lymphadenopathy noted Resp: Effort & Inspection: normal respiratory effort and able to speak in complete sentences Auscultation: clear to auscultation bilaterally Cardio: Jugular venous distension: no JVD Rate: regular rate Rhythm: regular rhythm Heart sounds: S1 normal heart sound present and S2 normal heart sound present GI: GI Palp: Yes Soft to palpation and Yes No hepatosplenomegaly present : General: Yes deferred Skin: Rashes: no rashes Wounds: no wounds Neuro: General: CN's II-XI intact bilaterally and other (Under sedation) Cranial nerves: Yes CN's II-XII intact bilaterally and Yes Equal, round and reactive pupils present Gait exam (Neuro): Normal gait present Motor exam (neuro): 5/5 motor strength present throughout Extrem: General: normal to inspection, full ROM, no joint enlargement and no pedal edema Objective Data Vital Signs Vital Signs: Vital Signs - 24 hr 06/16/20 12:00 06/16/20 14:00 06/16/20 14:15 Temperature 97.8 F 98.1 F Pulse Rate 62 60 58 L Respiratory Rate 26 H 26 H 26 H Blood Pressure 91/58 L 88/59 L Pulse Oximetry 95 97 97 06/16/20 14:27 06/16/20 16:00 06/16/20 17:15 Temperature 98.1 F Pulse Rate 60 62 62 Respiratory Rate 26 H 26 H Blood Pressure 104/65 Pulse Oximetry 95 95 06/16/20 17:35 06/16/20 18:00 06/16/20 20:00 Temperature 98.5 F 98.4 F Pulse Rate 57 L 76 70 Respiratory Rate 26 H 26 H 26 H Blood Pressure 101/64 91/60 L Pulse Oximetry 93 92 06/16/20 20:20 06/16/20 20:21 06/16/20 20:22 Temperature Pulse Rate 61 68 68 Respiratory Rate 26 H 26 H Blood Pressure 91/60 L Pulse Oximetry 95 06/16/20 21:35 06/16/20 21:45 06/16/20 22:00 Temperature 98.4 F Pulse Rate 62 61 66 Respiratory Rate 26 H 26 H 26 H Blood Pressure 101/58 L Pulse Oximetry 95 06/16/20 23:30 06/17/20 00:00 06/17/20 00:14 Temperature 98.1 F Pulse Rate 59 L 59 L 58 L Respiratory Rate 26 H 26 H Blood Pressure 97/63 L 97/63 L Pulse Oximetry 95 95 06/17/20 00:15 06/17/20 00:16 06/17/20 02:00 Temperature 98.2 F Pulse Rate 58 L 58 L 54 L Respiratory Rate 26 H 26 H 26 H Blood Pressure 93/57 L Pulse Oximetry 94 06/17/20 02:19 06/17/20 02:21 06/17/20 02:22 Temperature Pulse Rate 54 L 54 L 54 L Respira
[2020-06-17] MEDS: INSULIN ASPART (*BKC) 100 UNITS/ML SUB-Q ×2 (11:41→17:32)
[2020-06-17 11:52] LABS: Glucose Point of Care 226 (65-105)
[2020-06-17 17:40] LABS: Glucose Point of Care 256 (65-105)
[2020-06-17] MEDS: INSULIN GLARGINE (*BKC) 100 UNITS/ML 10 UNITS SUB-Q (21:15)
[2020-06-17 21:22] LABS: Glucose Point of Care 221 (65-105)
[2020-06-17] MEDS: MIDAZOLAM 100MG/NS 100ML(*CRX) 100 MG/100 ML BAG IV CONT (23:10)
[2020-06-17 23:29] LABS: Glucose Point of Care 195 (65-105)
[2020-06-18] VITALS (56 sets, daily range): BP systolic 84–126; BP diastolic 34–71; PULSE 52–184; RESP 16–33; TEMP 37.1–38.4; O2SAT 92–97
[2020-06-18] MEDS: ALBUTEROL SULFATE NEB 2.5 MG/0.5 ML INH INHALATION ×4 (01:57→19:14)
[2020-06-18] MEDS: IPRATROPIUM BR 0.02% INH SOLN 0.5 MG/2.5 ML VIAL INHALATION ×4 (01:57→19:14)
[2020-06-18] MEDS: AMIODARONE 150 MG/D5W 100 ML 150 MG/100 ML BAG 600 MG IV CONT (04:48)
--- NOTE | 2020-06-18 04:50 | ECG_ITS ---
Measurements Intervals [place] Rate: 184 P: MI: 0 QRS: 102 QRSD: 83 T: 102 QT: 253 QTc: 443 Interpretive Statements ATRIAL FIBRILLATION WITH RAPID VENTRICULAR RESPONSE RIGHT AXIS DEVIATION ST-T WAVE ABNORMALITY IN ANTEROLATERLAT/HIGH LAT LEADS- CONSIDER ISCHEMIA BASELINE ARTIFACT- I, II, III, AVR, AVL, AVF, V3-V6 ABNORMAL ECG Electronically Signed On 06-18-2020 9:01:23 CDT by Bob Vance D.O.
[2020-06-18] MEDS: CENTRAL LINE FLUSH 10 ML IV PUSH ×2 (04:53→19:59)
[2020-06-18] MEDS: AMIODARONE 360 MG/D5W 200 ML 360 MG/200 ML BAG 33.33 MG IV CONT (04:59)
[2020-06-18] MEDS: NOREPINEPHRINE 8 MG/D5W 250 ML 8 MG/250 ML BAG 9.38 MG IV CONT (05:01)
[2020-06-18 05:05] LABS: Hematocrit 39.9 % (42.0-52.0); Hemoglobin 12.4 g/dL (14.0-18.0); Mean Corpuscular HGB Conc 31.1 g/dl (32-36); Mean Corpuscular Hemoglobin 28.3 pg (26-34); Mean Corpuscular Volume 91.1 fl (80-100); Mean Platelet Volume 9.4 fl (7.4-10.4); Platelet Count Result 313 k/mm3 (150-375); Red Blood Count 4.38 M/mm3 (4.6-6.20); Red Cell Distribution Width 14.1 % (11.5-14.5); White Blood Count 7.9 K/mm3 (4.5-10.0)
[2020-06-18 05:10] LABS: Alveolar/Arterial O2 Gradient 237.4 mmHg; Carboxyhemoglobin 0.3 % THb (0-2.0); Fractional Inspired Oxygen 50 %; HCO3 ABG 22.2 mEq/l (22.0-26.0); Methemoglobin ABG 0.3 %THb (0-1.5); Modified Allen's Test Unable to perform; Oxygen Content ABG 17.8 %vol (16.0-22.0); Oxygen Saturation ABG 95.7 % (95.0-100.0); Oxyhemoglobin 93.7 % THb (90.0-100.0); PCO2 ABG 36.2 mmHg (35.0-45.0); PO2 ABG 78.4 mmHg (80.0-100.0); PO2 FiO2 Ratio Arterial Blood 1.57 %; Reduced Hemoglobin 5.7 %THb (0-5.0); Site Drawn LEFT RADIAL; Total Hemoglobin 13.5 g/dL (12.0-18.0); pH ABG 7.405 (7.350-7.450)
[2020-06-18 05:11] LABS: Arterial Blood Gas PEEP 10 cmH2O; Arterial Blood Gas Tidal Volume 430 ml; Arterial Blood Gas Vent Mode CMV; Arterial Blood Gas Ventilator rate 26 /MIN; Device VENTILATOR
[2020-06-18] MEDS: FENTANYL 2,500MCG/NS250ML(*CRX 2,500 MCG/250 ML BAG 15 MCG IV CONT ×2 (05:16→19:52)
[2020-06-18 05:22] LABS: D Dimer 1.46 ug/mL (<0.48)
--- NOTE | 2020-06-18 05:22 | PC.NURSE ---
Pt in Afib RVR. Currently more alert on sedation, although still very drowsy. Pt overbreathing the ventilator and is not consistently pulling tidal volumes. Respiratory therapy at bedside. Sedation increased.
[2020-06-18 05:29] LABS: Alanine Aminotransferase 17 U/L (4-50); Albumin Level 2.3 g/dL (3.5-5.1); Alkaline Phosphatase 49 U/L (38-126); Anion Gap 6 mmol/L (8-16); Aspartate Amino Transferase 20 U/L (17-59); Bilirubin,Total 0.4 mg/dL (0.2-1.3); Blood Urea Nitrogen 47 mg/dL (9-20); Calcium 7.8 mg/dL (8.4-10.2); Carbon Dioxide 26 mmol/L (22-30); Chloride 112 mmol/L (98-107); Estimated CRCL calculation 53 ml/min; Estimated Glomerular Filt Rate 59; Glucose 321 mg/dL (75-110); Magnesium 2.5 mg/dL (1.6-2.3); Phosphorus 3.5 mg/dL (2.5-4.5); Sodium 144 mmol/L (137-145)
[2020-06-18 05:54] LABS: CRP 12.9 mg/dL (<1.0); Lactate Dehydrogenase 391 U/L (313-618)
[2020-06-18] MEDS: INSULIN ASPART (*BKC) 100 UNITS/ML SUB-Q ×4 (06:20→23:31)
[2020-06-18 06:30] LABS: Glucose Point of Care 315 (65-105)
[2020-06-18] MEDS: INSULIN GLARGINE (*BKC) 100 UNITS/ML 12 UNITS SUB-Q (07:45)
[2020-06-18] MEDS: ENOXAPARIN 40 MG/0.4 ML SYRINGE SUB-Q ×2 (07:45→19:58)
[2020-06-18] MEDS: BUDESONIDE RESPULE NEB 0.5 MG/2 ML AMP INHALATION ×2 (07:45→19:15)
[2020-06-18] MEDS: PANTOPRAZOLE SODIUM IV 40 MG VIAL IV PUSH ×2 (07:46→19:58)
[2020-06-18] MEDS: LORATADINE 10 MG TABLET PO (07:46)
[2020-06-18] MEDS: DEXAMETHASONE SOD PHOS INJ 4 MG/ML VIAL 6 MG IV PUSH (07:46)
[2020-06-18] MEDS: EZETIMIBE 10 MG TABLET PO (07:46)
[2020-06-18] MEDS: ASCORBIC ACID 500 MG TABLET 1000 MG PO (07:46)
[2020-06-18] MEDS: ZINC SULFATE 220 MG CAPSULE PO (07:46)
[2020-06-18] MEDS: CHOLECALCIFEROL 1,000 UNITS TABLET 1000 UNITS PO (07:46)
--- NOTE | 2020-06-18 08:48 | WPDINTPN ---
Progress Note: A&P Assessment and Plan (1) Acute respiratory failure with hypoxia: Code(s): J96.01 - Acute respiratory failure with hypoxia Status: Acute Assessment and Plan: Acute respiratory failure with hypoxia likely related to COVID-19 pneumonia with increasing oxygen requirements -patient intubated on 06/15/2020 and placed on mechanical ventilation -FiO2 of 50% and PEEP of 10, wean FiO2 to maintain O2 sats > sat 92% -continue Pulmicort -continue albuterol and Atrovent -continue fentanyl and Versed infusion, Nimbex was added for ventilator synchrony, will start weaning Nimbex to off -chest x-ray and ABGs reviewed (2) Pneumonia due to COVID-19 virus: Code(s): U07.1 - COVID-19; J12.82 - Pneumonia due to coronavirus disease 2018 Status: Acute Assessment and Plan: SARS-CoV-2 PCR positive -continue Remdesivir and dexamethasone -continue airborne, droplet and contact isolation/precautions -continue vitamin-C, vitamin-D and zinc -will trend inflammatory markers (3) DM w/o complication type II, uncontrolled: Qualifiers: Glycemic state: with hyperglycemia Qualified Code(s): E11.65 - Type 2 diabetes mellitus with hyperglycemia Code(s): E11.65 - Type 2 diabetes mellitus with hyperglycemia Status: Acute Assessment and Plan: Patient hyperglycemic likely related to starting of tube feeds and on steroids Continue sliding scale insulin with Accu-Cheks -increase Lantus -hemoglobin A1c this admission is 9.0 (4) Hypotension: Code(s): I95.9 - Hypotension, unspecified Status: Acute Assessment and Plan: Patient hypotensive likely related positive pressure ventilation, sedation medication, AFib RVR -Levophed was restarted -will maintain mean arterial pressure > 65 mmHg -lactic acid is 1.4 -blood, sputum, urine cultures negative from 06/16/2020 -UA was unremarkable -febrile this morning which could be related to COVID-19 (5) Essential (primary) hypertension: Code(s): I10 - Essential (primary) hypertension Status: Acute Assessment and Plan: Will hold all antihypertensives as patient with hypotension likely related to positive pressure ventilation and sedation medications (6) Sinus bradycardia: Code(s): R00.1 - Bradycardia, unspecified Status: Acute Assessment and Plan: Resolved (7) DVT prophylaxis: Code(s): Z29.9 - Encounter for prophylactic measures, unspecified Status: Acute Assessment and Plan: DVT prophylaxis: Lovenox 40 mg SQ q.12 hours Stress ulcer prophylaxis: Protonix (8) Atrial fibrillation with RVR: Code(s): I48.91 - Unspecified atrial fibrillation Status: Acute Assessment and Plan: Patient went into AFib RVR likely related to COVID-19 pneumonia, acute respiratory failure -patient was given amiodarone bolus and started on amiodarone infusion. -converted to sinus this morning -continue to monitor Additional Plan Discussed with Ellie, and updated her with patient's condition and plan of care. I answered all her questions Code status: Full code Critical care time spent: 35 minutes This dictation may have been done utilizing a voice recognition system. Attempts have been made to correct errors. However, there may be uncorrected grammatical, spelling, and recognition errors present. Due to a high probability of clinically significant, life threatening deterioration, the patient required my highest level of preparedness to intervene emergently and I personally spent this critical care time directly and personally managing the patient. This critical care time included obtaining a history; examining the patient; pulse oximetry; ordering and review of studies; arranging urgent treatment with development of a management plan; evaluation of patient's response to treatment; frequent reassessment; and discussions with other providers. It was exclusive of [facility]
[2020-06-18] MEDS: AMIODARONE 360 MG/D5W 200 ML 360 MG/200 ML BAG 16.67 MG IV CONT (10:35)
[2020-06-18] MEDS: ACETAMINOPHEN 325 MG TABLET 650 MG PO (10:37)
[2020-06-18 12:45] LABS: Glucose Point of Care 307 (65-105)
--- NOTE | 2020-06-18 16:24 | PM.IMPN ---
Progress Note: A&P Assessment and Plan (1) Acute respiratory failure with hypoxia: Code(s): J96.01 - Acute respiratory failure with hypoxia Status: Acute Assessment and Plan: PATIENT IS ON VENTILATOR SUPPORT LIKELY SECONDARY TO PNEUMONIA (2) Pneumonia due to COVID-19 virus: Code(s): U07.1 - COVID-19; J12.82 - Pneumonia due to coronavirus disease 2019 Status: Acute Assessment and Plan: PATIENT IS CURRENTLY ON DEXAMETHASONE (3) Atrial fibrillation with RVR: Code(s): I48.91 - Unspecified atrial fibrillation Status: Acute Assessment and Plan: ON AMIODARONE DRIP (4) DM w/o complication type II, uncontrolled: Qualifiers: Glycemic state: with hyperglycemia Qualified Code(s): E11.65 - Type 2 diabetes mellitus with hyperglycemia Code(s): E11.65 - Type 2 diabetes mellitus with hyperglycemia Status: Acute Assessment and Plan: INSULIN SLIDING SCALE NEEDED CONTINUE TO MONITOR Subjective Date/time seen: 06/18/20 16:24 PATIENT IS ON VENTILATOR SUPPORT Review of Systems Review of Systems: ROS unobtainable: Yes unobtainable due to medical condition ( ON VENTILATOR SUPPORT) Exam Narrative: Exam Narrative: LIMITED TO INSPECTION Const: General: other ( ON VENTILATOR SUPPORT UNDER SEDATION) Nutritional Appearance: average body habitus HENMT: Head: normal to inspection Face and sinus: normal facial exam Throat: other ( ET TUBE IN PLACE) Eyes: General: appearance normal, both eyes and all related structures Neck: Neck: normal visual inspection Resp: Effort & Inspection: other ( ON VENTILATOR SUPPORT) Cardio: Rate: regular rate Rhythm: regular rhythm and other ( SEEN ON TELEMETRY) GI: Inspection: normal to inspection Skin: Rashes: no rashes Extrem: General: normal to inspection Objective Data Vital Signs Vital Signs: Vital Signs - 24 hr 06/17/20 16:30 06/17/20 16:55 06/17/20 17:33 Temperature Pulse Rate 60 60 57 L Respiratory Rate 26 H Blood Pressure Pulse Oximetry 93 06/17/20 17:34 06/17/20 20:00 06/17/20 20:11 Temperature 99.4 F 99.8 F H Pulse Rate 56 L 59 L 55 L Respiratory Rate 27 H 28 H 26 H Blood Pressure 100/59 L 93/60 L Pulse Oximetry 93 92 06/17/20 20:14 06/17/20 20:18 06/17/20 22:00 Temperature 99.4 F Pulse Rate 56 L 57 L 58 L Respiratory Rate 28 H 26 H Blood Pressure 108/65 Pulse Oximetry 95 95 06/17/20 23:10 06/17/20 23:40 06/18/20 00:00 Temperature 99.3 F Pulse Rate 57 L 53 L 56 L Respiratory Rate 26 H 26 H Blood Pressure 102/58 L Pulse Oximetry 95 95 06/18/20 01:58 06/18/20 02:00 06/18/20 02:01 Temperature 98.9 F Pulse Rate 52 L 58 L 55 L Respiratory Rate 23 H 26 H Blood Pressure 106/58 L Pulse Oximetry 95 95 06/18/20 02:05 06/18/20 04:00 06/18/20 04:08 Temperature 98.9 F Pulse Rate 54 L 56 L 55 L Respiratory Rate 28 H 27 H 27 H Blood Pressure 97/56 L Pulse Oximetry 95 06/18/20 04:09 06/18/20 04:24 06/18/20 04:34 Temperature Pulse Rate 55 L 137 H 174 H Respiratory Rate 27 H 31 H Blood Pressure Pulse Oximetry 95 06/18/20 04:35 06/18/20 04:36 06/18/20 04:38 Temperature 99 F Pulse Rate 184 H 178 H 167 H Respiratory Rate 23 H 31 H Blood Pressure 84/49 L Pulse Oximetry 92 06/18/20 04:48 06/18/20 04:59 06/18/20 05:01 Temperature Pulse Rate 178 H 153 H 162 H Respiratory Rate Blood Pressure 93/34 L 89/56 L 84/71 L Pulse Oximetry 06/18/20 05:07 06/18/20 05:15 06/18/20 05:16 Temperature 98.7 F Pulse Rate 155 H 163 H 158 H Respiratory Rate 33 H 29 H 31 H Blood Pressure 113/63 Pulse Oximetry 94 06/18/20 05:22 06/18/20 06:00 06/18/20 06:21 Temperature 99.5 F Pulse Rate 166 H 149 H 145 H Respiratory Rate 31 H 28 H 29 H Blood Pressure 89/57 L Pulse Oximetry 93 06/18/20 06:22 06/18/20 07:45 06/18/20 07:52 Temperature Pulse Rate 145 H 97 Respiratory
[2020-06-18 18:15] LABS: Glucose Point of Care 364 (65-105)
[2020-06-18] MEDS: INSULIN GLARGINE (*BKC) 100 UNITS/ML 20 UNITS SUB-Q (19:54)
--- NOTE | 2020-06-18 20:29 | PC.NURSE ---
Hold Amiodarone for HR of 64.
[2020-06-18] MEDS: MIDAZOLAM 100MG/NS 100ML(*CRX) 100 MG/100 ML BAG IV CONT (23:16)
[2020-06-19] VITALS (47 sets, daily range): BP systolic 106–118; BP diastolic 58–65; PULSE 53–74; RESP 26–28; TEMP 37.2–37.7; O2SAT 94–100
[2020-06-19 00:56] LABS: Glucose Point of Care 287 (65-105)
[2020-06-19] MEDS: IPRATROPIUM BR 0.02% INH SOLN 0.5 MG/2.5 ML VIAL INHALATION ×4 (01:16→20:16)
[2020-06-19] MEDS: ALBUTEROL SULFATE NEB 2.5 MG/0.5 ML INH INHALATION ×4 (01:16→20:16)
[2020-06-19 04:11] LABS: Hematocrit 36.7 % (42.0-52.0); Hemoglobin 11.6 g/dL (14.0-18.0); Mean Corpuscular HGB Conc 31.6 g/dl (32-36); Mean Corpuscular Hemoglobin 28.6 pg (26-34); Mean Corpuscular Volume 90.6 fl (80-100); Mean Platelet Volume 9.6 fl (7.4-10.4); Platelet Count Result 275 k/mm3 (150-375); Red Blood Count 4.05 M/mm3 (4.6-6.20); Red Cell Distribution Width 14.6 % (11.5-14.5); White Blood Count 14.5 K/mm3 (4.5-10.0)
[2020-06-19 04:17] LABS: Base Excess ABG 2.4 mEq/l (+/-2.0); Carboxyhemoglobin 0.3 % THb (0-2.0); Fractional Inspired Oxygen 45 %; HCO3 ABG 27.4 mEq/l (22.0-26.0); Methemoglobin ABG 0.3 %THb (0-1.5); Oxygen Content ABG 19.1 %vol (16.0-22.0); Oxygen Saturation ABG 96.4 % (95.0-100.0); Oxyhemoglobin 94.9 % THb (90.0-100.0); PCO2 ABG 43.8 mmHg (35.0-45.0); PO2 FiO2 Ratio Arterial Blood 1.87 %; Reduced Hemoglobin 4.5 %THb (0-5.0); Total Hemoglobin 14.3 g/dL (12.0-18.0); pH ABG 7.414 (7.350-7.450)
[2020-06-19 04:18] LABS: Arterial Blood Gas PEEP 10 cmH2O; Arterial Blood Gas Tidal Volume 430 ml; Arterial Blood Gas Vent Mode CMV; Arterial Blood Gas Ventilator rate 26 /MIN; Device VENTILATOR; Modified Allen's Test Unable to perform; Site Drawn LEFT RADIAL
[2020-06-19 04:34] LABS: Alanine Aminotransferase 36 U/L (4-50); Albumin Level 2.3 g/dL (3.5-5.1); Alkaline Phosphatase 50 U/L (38-126); Anion Gap 0 mmol/L (8-16); Aspartate Amino Transferase 57 U/L (17-59); Bilirubin,Total 0.2 mg/dL (0.2-1.3); Blood Urea Nitrogen 53 mg/dL (9-20); Calcium 8.1 mg/dL (8.4-10.2); Carbon Dioxide 32 mmol/L (22-30); Chloride 111 mmol/L (98-107); Estimated CRCL calculation 57 ml/min; Estimated Glomerular Filt Rate > 60; Glucose 287 mg/dL (75-110); Magnesium 2.6 mg/dL (1.6-2.3); Phosphorus 3.5 mg/dL (2.5-4.5); Potassium 4.6 mmol/L (3.4-5.0); Sodium 143 mmol/L (137-145)
[2020-06-19] MEDS: CENTRAL LINE FLUSH 10 ML IV PUSH ×3 (04:43→20:43)
[2020-06-19] MEDS: INSULIN ASPART (*BKC) 100 UNITS/ML SUB-Q ×4 (04:45→23:14)
[2020-06-19] MEDS: BUDESONIDE RESPULE NEB 0.5 MG/2 ML AMP INHALATION ×2 (06:08→20:16)
[2020-06-19] MEDS: CHOLECALCIFEROL 1,000 UNITS TABLET 1000 UNITS PO (08:03)
[2020-06-19] MEDS: LORATADINE 10 MG TABLET PO (08:03)
[2020-06-19] MEDS: DEXAMETHASONE SOD PHOS INJ 4 MG/ML VIAL 6 MG IV PUSH (08:03)
[2020-06-19] MEDS: EZETIMIBE 10 MG TABLET PO (08:03)
[2020-06-19] MEDS: ENOXAPARIN 40 MG/0.4 ML SYRINGE SUB-Q ×2 (08:03→20:43)
[2020-06-19] MEDS: ZINC SULFATE 220 MG CAPSULE PO (08:04)
[2020-06-19] MEDS: ASCORBIC ACID 500 MG TABLET 1000 MG PO (08:04)
[2020-06-19] MEDS: PANTOPRAZOLE SODIUM IV 40 MG VIAL IV PUSH ×2 (08:04→20:42)
[2020-06-19] MEDS: INSULIN GLARGINE (*BKC) 100 UNITS/ML 26 UNITS SUB-Q ×2 (08:12→20:41)
--- NOTE | 2020-06-19 08:41 | WPDINTPN ---
Progress Note: A&P Assessment and Plan (1) Acute respiratory failure with hypoxia: Code(s): J96.01 - Acute respiratory failure with hypoxia Status: Acute Assessment and Plan: Acute respiratory failure with hypoxia likely related to COVID-19 pneumonia with increasing oxygen requirements -patient intubated on 06/15/2020 and placed on mechanical ventilation -FiO2 of 545% and PEEP of 10, wean FiO2 to maintain O2 sats > sat 92%. Will decrease PEEP to 8 today -continue Pulmicort -continue albuterol and Atrovent -continue fentanyl and Versed infusion, Nimbex was added for ventilator synchrony, will start weaning Nimbex to off -chest x-ray and ABGs reviewed (2) Pneumonia due to COVID-19 virus: Code(s): U07.1 - COVID-19; J12.82 - Pneumonia due to coronavirus disease 2018 Status: Acute Assessment and Plan: SARS-CoV-2 PCR positive -continue Remdesivir and dexamethasone -continue airborne, droplet and contact isolation/precautions -continue vitamin-C, vitamin-D and zinc -inflammatory markers trending down (3) DM w/o complication type II, uncontrolled: Qualifiers: Glycemic state: with hyperglycemia Qualified Code(s): E11.65 - Type 2 diabetes mellitus with hyperglycemia Code(s): E11.65 - Type 2 diabetes mellitus with hyperglycemia Status: Acute Assessment and Plan: Patient hyperglycemic likely related to starting of tube feeds and on steroids Continue sliding scale insulin with Accu-Cheks -will increase Lantus again today s -hemoglobin A1c this admission is 9.0 (4) Hypotension: Code(s): I95.9 - Hypotension, unspecified Status: Acute Assessment and Plan: Patient hypotensive likely related positive pressure ventilation, sedation medication, AFib RVR -off Levophed since 4:30 p.m. on 06/18/2020 -blood, sputum, urine cultures negative from 06/16/2020 -UA was unremarkable (5) Essential (primary) hypertension: Code(s): I10 - Essential (primary) hypertension Status: Acute Assessment and Plan: Will hold all antihypertensives as patient with hypotension likely related to positive pressure ventilation and sedation medications (6) Sinus bradycardia: Code(s): R00.1 - Bradycardia, unspecified Status: Acute Assessment and Plan: Resolved (7) DVT prophylaxis: Code(s): Z29.9 - Encounter for prophylactic measures, unspecified Status: Acute Assessment and Plan: DVT prophylaxis: Lovenox 40 mg SQ q.12 hours Stress ulcer prophylaxis: Protonix (8) Atrial fibrillation with RVR: Code(s): I48.91 - Unspecified atrial fibrillation Status: Acute Assessment and Plan: Patient went into AFib RVR likely related to COVID-19 pneumonia, acute respiratory failure -has been in sinus rhythm since yesterday, off amiodarone infusion -continue to monitor Additional Plan Discussed with Ellie, and updated her with patient's condition and plan of care. I answered all her questions Code status: Full code Critical care time spent: 33 minutes This dictation may have been done utilizing a voice recognition system. Attempts have been made to correct errors. However, there may be uncorrected grammatical, spelling, and recognition errors present. Due to a high probability of clinically significant, life threatening deterioration, the patient required my highest level of preparedness to intervene emergently and I personally spent this critical care time directly and personally managing the patient. This critical care time included obtaining a history; examining the patient; pulse oximetry; ordering and review of studies; arranging urgent treatment with development of a management plan; evaluation of patient's response to treatment; frequent reassessment; and discussions with other providers. It was exclusive of separately billable procedures and treating other patients and teaching time. Please see Assessmen
--- NOTE | 2020-06-19 10:43 | PCDIET ---
ICU Rounding Note: Patient tolerating Glucerna 1.2 at goal rate of 65mL/hr with 30mL water flush every 4 hours. Last recorded weight is 89.3kg which is down from last review. I/O slightly positive. Bowel Motility: Last documented BM on 06/15/20. Discussed during rounds. MD will monitor. Labs Reviewed: Glu (287), BUN (53), Alb (2.3), Agustín Ca (9.46), Mg (2.6) Meds Noted: Albuterol, Vitamin C, Zetia, Fentanyl, Novolog, Pulmicort, Decadron, Lantus, Atrovent, Versed, Levophed, Protonix, Vitamin D, Zinc Sulfate Additional Notes: No documented skin breakdown. Following daily in ICU rounds. Assessing/reassessing every Friday/Friday.
[2020-06-19 12:20] LABS: Glucose Point of Care 280 (65-105)
--- NOTE | 2020-06-19 14:16 | PM.IMPN ---
Progress Note: A&P Assessment and Plan (1) Acute respiratory failure with hypoxia: Code(s): J96.01 - Acute respiratory failure with hypoxia Status: Acute Assessment and Plan: Patient is on a ventilator Supportive care Management as per knot saw operator (2) Pneumonia due to COVID-19 virus: Code(s): U07.1 - COVID-19; J12.82 - Pneumonia due to coronavirus disease 2019 Status: Acute Assessment and Plan: Remdesivir and Dexamethasone Stable diffuse infiltrates (3) Atrial fibrillation with RVR: Code(s): I48.91 - Unspecified atrial fibrillation Status: Acute Assessment and Plan: Amiodarone drip has been discontinued Patient converted to sinus rhythm (4) Essential (primary) hypertension: Code(s): I10 - Essential (primary) hypertension Status: Acute Assessment and Plan: Off Of Levophed (5) DM w/o complication type II, uncontrolled: Qualifiers: Glycemic state: with hyperglycemia Qualified Code(s): E11.65 - Type 2 diabetes mellitus with hyperglycemia Code(s): E11.65 - Type 2 diabetes mellitus with hyperglycemia Status: Acute Assessment and Plan: Insulin sliding scale as needed Subjective Date/time seen: 06/19/20 14:16 Patient is on ventilator support Review of Systems Review of Systems: Narrative: On ventilator support Exam Narrative: Exam Narrative: Patient is on ventilator support Const: General: comfortable and other (Under sedation) Nutritional Appearance: average body habitus HENMT: Head: normal to inspection, normocephalic and atraumatic Face and sinus: normal facial exam Eyes: General: appearance normal, both eyes and all related structures EOM: EOMs intact bilaterally Neck: Neck: full ROM, no lymphadenopathy and no JVD Thyroid: thyroid normal Lymphatic: no lymphadenopathy noted Resp: Effort & Inspection: other (On vent support) Auscultation: clear to auscultation bilaterally Cardio: Jugular venous distension: no JVD Rate: regular rate Rhythm: regular rhythm Heart sounds: S1 normal heart sound present and S2 normal heart sound present GI: GI Palp: Yes Soft to palpation and Yes No hepatosplenomegaly present : General: Yes deferred Skin: Rashes: no rashes Wounds: no wounds Neuro: General: CN's II-XI intact bilaterally Cranial nerves: Yes CN's II-XII intact bilaterally and Yes Equal, round and reactive pupils present Motor exam (neuro): 07/05 motor strength present throughout Objective Data Vital Signs Vital Signs: Vital Signs - 24 hr 06/18/20 14:19 06/18/20 14:21 06/18/20 16:00 Temperature 100.8 F H Pulse Rate 72 67 69 Respiratory Rate 26 H 27 H Blood Pressure 111/55 L Pulse Oximetry 95 93 06/18/20 16:15 06/18/20 16:26 06/18/20 16:30 Temperature Pulse Rate 68 67 Respiratory Rate Blood Pressure 111/55 L 103/55 L Pulse Oximetry 93 06/18/20 16:35 06/18/20 18:00 06/18/20 19:15 Temperature 100.6 F H Pulse Rate 70 64 64 Respiratory Rate 27 H 29 H Blood Pressure 110/59 L Pulse Oximetry 94 96 06/18/20 19:19 06/18/20 19:24 06/18/20 19:52 Temperature Pulse Rate 63 64 65 Respiratory Rate 31 H 30 H Blood Pressure Pulse Oximetry 94 06/18/20 20:00 06/18/20 20:35 06/18/20 22:00 Temperature 100.6 F H 99.7 F H Pulse Rate 66 65 61 Respiratory Rate 27 H 30 H 26 H Blood Pressure 104/54 L 105/57 L Pulse Oximetry 96 94 96 06/18/20 22:14 06/18/20 23:16 06/18/20 23:53 Temperature Pulse Rate 58 L 60 59 L Respiratory Rate 16 27 H Blood Pressure Pulse Oximetry 96 96 06/19/20 00:00 06/19/20 00:30 06/19/20 01:09 Temperature 99.4 F Pulse Rate 59 L 60 60 Respiratory Rate 26 H 26 H Blood Pressure 106/64 Pulse Oximetry 95 96 06/19/20 01:16 06/19/20 01:23 06/19/20 02:00 Temperature 99.3 F Pulse Rate 59 L 62 61 Respiratory Rate 28 H 27 H 27 H Blood Pressure 108/61 Pulse Oximetry 95 06/19/20 03:10 06/19/20
[2020-06-19] MEDS: FENTANYL 2,500MCG/NS250ML(*CRX 2,500 MCG/250 ML BAG 7.5 MCG IV CONT (16:54)
[2020-06-19 17:43] LABS: Glucose Point of Care 322 (65-105)
[2020-06-19 23:21] LABS: Glucose Point of Care 272 (65-105)
[2020-06-20] VITALS (56 sets, daily range): BP systolic 112–149; BP diastolic 61–76; PULSE 34–89; RESP 22–35; TEMP 36.9–37.9; O2SAT 93–97
[2020-06-20] MEDS: MIDAZOLAM 100MG/NS 100ML(*CRX) 100 MG/100 ML BAG IV CONT ×2 (01:34→17:43)
[2020-06-20] MEDS: IPRATROPIUM BR 0.02% INH SOLN 0.5 MG/2.5 ML VIAL INHALATION ×4 (02:16→20:29)
[2020-06-20] MEDS: ALBUTEROL SULFATE NEB 2.5 MG/0.5 ML INH INHALATION ×4 (02:16→20:30)
[2020-06-20 03:40] LABS: Hematocrit 35.3 % (42.0-52.0); Hemoglobin 11.4 g/dL (14.0-18.0); Mean Corpuscular HGB Conc 32.3 g/dl (32-36); Mean Corpuscular Hemoglobin 28.9 pg (26-34); Mean Corpuscular Volume 89.6 fl (80-100); Mean Platelet Volume 9.9 fl (7.4-10.4); Platelet Count Result 260 k/mm3 (150-375); Red Blood Count 3.94 M/mm3 (4.6-6.20); Red Cell Distribution Width 14.6 % (11.5-14.5); White Blood Count 11.9 K/mm3 (4.5-10.0)
[2020-06-20 03:57] LABS: Alanine Aminotransferase 58 U/L (4-50); Albumin Level 2.3 g/dL (3.5-5.1); Alkaline Phosphatase 46 U/L (38-126); Anion Gap 2 mmol/L (8-16); Aspartate Amino Transferase 48 U/L (17-59); Bilirubin,Total 0.3 mg/dL (0.2-1.3); Blood Urea Nitrogen 42 mg/dL (9-20); CRP 8.2 mg/dL (<1.0); Calcium 8.2 mg/dL (8.4-10.2); Carbon Dioxide 33 mmol/L (22-30); Chloride 111 mmol/L (98-107); Estimated CRCL calculation 69 ml/min; Estimated Glomerular Filt Rate > 60; Glucose 198 mg/dL (75-110); Lactate Dehydrogenase 348 U/L (313-618); Magnesium 2.4 mg/dL (1.6-2.3); Phosphorus 3.1 mg/dL (2.5-4.5); Potassium 4.4 mmol/L (3.4-5.0); Sodium 146 mmol/L (137-145)
[2020-06-20 04:46] LABS: Alveolar/Arterial O2 Gradient 190.1 mmHg; Base Excess ABG 1.7 mEq/l (+/-2.0); Carboxyhemoglobin 0.3 % THb (0-2.0); Fractional Inspired Oxygen 45 %; HCO3 ABG 25.3 mEq/l (22.0-26.0); Methemoglobin ABG 0.1 %THb (0-1.5); Modified Allen's Test Unable to perform; Oxygen Saturation ABG 97.3 % (95.0-100.0); Oxyhemoglobin 95.4 % THb (90.0-100.0); PCO2 ABG 36.2 mmHg (35.0-45.0); PO2 ABG 89.6 mmHg (80.0-100.0); PO2 FiO2 Ratio Arterial Blood 1.99 %; Reduced Hemoglobin 4.2 %THb (0-5.0); Site Drawn RIGHT RADIAL; Total Hemoglobin 12.6 g/dL (12.0-18.0); pH ABG 7.462 (7.350-7.450)
[2020-06-20 04:47] LABS: Arterial Blood Gas PEEP 8 cmH2O; Arterial Blood Gas Tidal Volume 430 ml; Arterial Blood Gas Vent Mode CMV; Arterial Blood Gas Ventilator rate 26 /MIN; Device VENTILATOR
[2020-06-20 05:20] LABS: Glucose Point of Care 168 (65-105)
[2020-06-20] MEDS: CENTRAL LINE FLUSH 10 ML IV PUSH ×3 (05:40→20:26)
[2020-06-20] MEDS: INSULIN GLARGINE (*BKC) 100 UNITS/ML 26 UNITS SUB-Q (08:19)
[2020-06-20] MEDS: PANTOPRAZOLE SODIUM IV 40 MG VIAL IV PUSH ×2 (08:21→20:25)
[2020-06-20] MEDS: CHOLECALCIFEROL 1,000 UNITS TABLET 1000 UNITS PO (08:21)
[2020-06-20] MEDS: ZINC SULFATE 220 MG CAPSULE PO (08:21)
[2020-06-20] MEDS: DEXAMETHASONE SOD PHOS INJ 4 MG/ML VIAL 6 MG IV PUSH (08:21)
[2020-06-20] MEDS: ENOXAPARIN 40 MG/0.4 ML SYRINGE SUB-Q ×2 (08:21→20:25)
[2020-06-20] MEDS: EZETIMIBE 10 MG TABLET PO (08:21)
[2020-06-20] MEDS: ASCORBIC ACID 500 MG TABLET 1000 MG PO (08:21)
[2020-06-20] MEDS: LORATADINE 10 MG TABLET PO (08:21)
[2020-06-20] MEDS: BUDESONIDE RESPULE NEB 0.5 MG/2 ML AMP INHALATION ×2 (08:31→20:30)
--- NOTE | 2020-06-20 09:44 | WPDINTPN ---
Progress Note: A&P Assessment and Plan (1) Acute respiratory failure with hypoxia: Code(s): J96.01 - Acute respiratory failure with hypoxia Status: Acute Assessment and Plan: Acute respiratory failure with hypoxia likely related to COVID-19 pneumonia with increasing oxygen requirements -patient intubated on 06/15/2020 and placed on mechanical ventilation -FiO2 of 545% and PEEP of 8, wean FiO2 to maintain O2 sats > sat 92%. Will decrease PEEP to 5 today -continue Pulmicort -continue albuterol and Atrovent -continue fentanyl and Versed infusion, start patient Precedex, will wean fentanyl Versed to of -chest x-ray and ABGs reviewed -sputum cultures growing Pseudomonas barker susceptible, started ceftazidime (2) Pneumonia due to COVID-19 virus: Code(s): U07.1 - COVID-19; J12.82 - Pneumonia due to coronavirus disease 2018 Status: Acute Assessment and Plan: SARS-CoV-2 PCR positive -status post Remdesivir continue dexamethasone -continue airborne, droplet and contact isolation/precautions -continue vitamin-C, vitamin-D and zinc -inflammatory markers trending down (3) DM w/o complication type II, uncontrolled: Qualifiers: Glycemic state: with hyperglycemia Qualified Code(s): E11.65 - Type 2 diabetes mellitus with hyperglycemia Code(s): E11.65 - Type 2 diabetes mellitus with hyperglycemia Status: Acute Assessment and Plan: Patient hyperglycemic likely related to starting of tube feeds and on steroids Continue sliding scale insulin with Accu-Cheks -increase Lantus -hemoglobin A1c this admission is 9.0 (4) Hypotension: Code(s): I95.9 - Hypotension, unspecified Status: Acute Assessment and Plan: Patient hypotensive likely related positive pressure ventilation, sedation medication, AFib RVR -off Levophed since 4:30 p.m. on 06/18/2020 -blood, sputum, urine cultures negative from 06/16/2020 -UA was unremarkable (5) Essential (primary) hypertension: Code(s): I10 - Essential (primary) hypertension Status: Acute Assessment and Plan: Will hold all antihypertensives as patient with hypotension likely related to positive pressure ventilation and sedation medications (6) Sinus bradycardia: Code(s): R00.1 - Bradycardia, unspecified Status: Acute Assessment and Plan: Resolved (7) DVT prophylaxis: Code(s): Z29.9 - Encounter for prophylactic measures, unspecified Status: Acute Assessment and Plan: DVT prophylaxis: Lovenox 40 mg SQ q.12 hours Stress ulcer prophylaxis: Protonix (8) Atrial fibrillation with RVR: Code(s): I48.91 - Unspecified atrial fibrillation Status: Acute Assessment and Plan: Patient went into AFib RVR likely related to COVID-19 pneumonia, acute respiratory failure -has been in sinus rhythm since 06/18, off amiodarone infusion -continue to monitor Additional Plan Discussed with Ellie, and updated her with patient's condition and plan of care. I answered all her questions Code status: Full code Critical care time spent: 33 minutes This dictation may have been done utilizing a voice recognition system. Attempts have been made to correct errors. However, there may be uncorrected grammatical, spelling, and recognition errors present. Due to a high probability of clinically significant, life threatening deterioration, the patient required my highest level of preparedness to intervene emergently and I personally spent this critical care time directly and personally managing the patient. This critical care time included obtaining a history; examining the patient; pulse oximetry; ordering and review of studies; arranging urgent treatment with development of a management plan; evaluation of patient's response to treatment; frequent reassessment; and discussions with other providers. It was exclusive of separately billable procedures and treating other patients a
[2020-06-20] MEDS: dexmedeTOMIDine 400 MCG/100 ML 400 MCG/100 ML BAG 6.86 MCG IV CONT ×2 (10:12→22:43)
[2020-06-20] MEDS: polyethylene glycoL 3350 17 GM POWD.PACK PO (10:39)
--- NOTE | 2020-06-20 11:06 | PCDIET ---
Nutrition Follow-Up Complete: Nutrition Diagnosis: Inadequate oral intake related to oral intubation as evidenced by NPO status. Nutrition Goal: Patient to meet estimated nutritional needs. Goal met. Patient tolerating Glucerna 1.2 at 65mL/hr goal rate with 30mL water flush every 4 hours. MD increasing water flush to 60mL every 4 hours. Last recorded weight is 91.4 kg which is increased from last review. +I/O. Bowel Motility: Last documented BM on 06/15/20. MD adding Miralax. Labs Reviewed: WBC (11.9), Hgb (11.4), Hct (35.3), Glu (198), BUN (42), Na (146), Alb (2.3), Agustín Ca (9.56) Meds Noted: Albuterol, Vitamin C, Pulmicort, Fortaz, Decadron, Zetia, Fentanyl, Lantus, Atrovent, Versed, Protonix, Vitamin D, Zinc Sulfate Additional Notes: No documented skin breakdown. Will continue to monitor with same goal. Nutrition Monitoring and Evaluation: Follow up every Friday/Friday. Follow daily in ICU rounds.
[2020-06-20] MEDS: INSULIN ASPART (*BKC) 100 UNITS/ML SUB-Q ×3 (12:12→23:15)
[2020-06-20] MEDS: INSULIN GLARGINE (*BKC) 100 UNITS/ML 6 UNITS SUB-Q (12:12)
[2020-06-20 12:23] LABS: Glucose Point of Care 244 (65-105)
--- NOTE | 2020-06-20 15:36 | PM.IMPN ---
Progress Note: A&P Assessment and Plan (1) Acute respiratory failure with hypoxia: Code(s): J96.01 - Acute respiratory failure with hypoxia Status: Acute Assessment and Plan: Patient is on a ventilator Continue ICU management (2) Pneumonia due to COVID-19 virus: Code(s): U07.1 - COVID-19; J12.82 - Pneumonia due to coronavirus disease 2019 Status: Acute Assessment and Plan: Remdesivir and Dexamethasone for COVID PNEUMONIA (3) Atrial fibrillation with RVR: Code(s): I48.91 - Unspecified atrial fibrillation Status: Acute Assessment and Plan: Amiodarone drip is off Patient converted to sinus rhythm (4) Essential (primary) hypertension: Code(s): I10 - Essential (primary) hypertension Status: Acute Assessment and Plan: Off Of Levophed (5) DM w/o complication type II, uncontrolled: Qualifiers: Glycemic state: with hyperglycemia Qualified Code(s): E11.65 - Type 2 diabetes mellitus with hyperglycemia Code(s): E11.65 - Type 2 diabetes mellitus with hyperglycemia Status: Acute Assessment and Plan: Insulin sliding scale as needed Subjective Date/time seen: 06/20/20 15:36 Interval history: Naman Glaser is a 74-year-old male with history of insulin-dependent type 2 diabetes mellitus, hypertension, hyperlipidemia, and gout who received his first dose of COVID vaccine on 05/26/20 who is seen in follow-up for COVID-19 pneumonia. Pt is intubated on a ventilator in ICU Review of Systems Review of Systems: ROS unobtainable: Yes unobtainable due to endotracheal tube Exam Narrative: Exam Narrative: Patient is on ventilator support Const: General: cooperative, comfortable, uncomfortable (Under sedation) and other (Under sedation) Nutritional Appearance: average body habitus Orientation/consciousness: Other orientation findings (Under sedation) Resp: Effort & Inspection: other (On vent support) GI: Inspection: normal to inspection Skin: General skin exam: normal color and no rashes or lesions noted Rashes: no rashes Wounds: no wounds Neuro: General: moves all extremities, CN's II-XI intact bilaterally and other (Under sedation) Cranial nerves: Yes CN's II-XII intact bilaterally, Yes Equal, round and reactive pupils present and Yes Normal hearing present Cognition (Neuro): abnormal cognition ( under sedation on ventilator support) Speech: normal speech Gait exam (Neuro): Normal gait present Motor exam (neuro): 5/5 motor strength present throughout Extrem: General: normal to inspection, full ROM, no joint enlargement and no pedal edema Psych: Affect: normal affect Objective Data Vital Signs Vital Signs: Vital Signs - 24 hr 06/19/20 16:00 06/19/20 16:33 06/19/20 16:54 Temperature 37.4 C Pulse Rate 56 L 72 72 Respiratory Rate 26 H 26 H 26 H Blood Pressure 111/60 Pulse Oximetry 96 06/19/20 16:55 06/19/20 17:14 06/19/20 17:34 Temperature Pulse Rate 65 55 L 62 Respiratory Rate 26 H 26 H Blood Pressure Pulse Oximetry 96 06/19/20 17:35 06/19/20 18:00 06/19/20 18:51 Temperature 37.3 C Pulse Rate 62 59 L 74 Respiratory Rate 26 H 26 H 26 H Blood Pressure 112/62 Pulse Oximetry 97 06/19/20 20:00 06/19/20 20:16 06/19/20 20:29 Temperature 37.3 C Pulse Rate 54 L 54 L 58 L Respiratory Rate 26 H 26 H 26 H Blood Pressure 113/63 Pulse Oximetry 96 96 06/19/20 20:54 06/19/20 21:08 06/19/20 22:00 Temperature 37.2 C Pulse Rate 57 L 57 L 54 L Respiratory Rate 26 H 26 H 26 H Blood Pressure 108/58 L Pulse Oximetry 96 97 06/19/20 23:24 06/19/20 23:45 06/20/20 00:00 Temperature 37.2 C Pulse Rate 55 L 53 L 53 L Respiratory Rate 27 H 26 H Blood Pressure 113/63 Pulse Oximetry 95 95 95 06/20/20 00:20 06/20/20 01:34 06/20/20 02:00 Temperature 37.2 C Pulse Rate 52 L 55 L 54 L Respiratory Rate 27 H 26 H 26 H Blood Pressure 132/68 Pulse Oximetry 96
--- NOTE | 2020-06-20 17:27 | PC.NURSE ---
Notified Dr. Dunn of patient becoming more bradycardic with increasing of sedation (Precedex). New order to start Midazolam at 1mg/hr and decrease Precedex to 0.2 mcg/kg/hr from 0.4 mcg/kg/hr.
[2020-06-20 18:00] LABS: Glucose Point of Care 246 (65-105)
[2020-06-20] MEDS: INSULIN GLARGINE (*BKC) 100 UNITS/ML 32 UNITS SUB-Q (20:26)
[2020-06-20] MEDS: ACETAMINOPHEN ELIXIR 325 MG/10.15 ML UDC 650 MG PO (22:44)
[2020-06-20 23:24] LABS: Glucose Point of Care 210 (65-105)
[2020-06-21] VITALS (35 sets, daily range): BP systolic 111–143; BP diastolic 57–70; PULSE 35–68; RESP 18–28; TEMP 37.4–38.1; O2SAT 91–96
[2020-06-21] MEDS: ALBUTEROL SULFATE NEB 2.5 MG/0.5 ML INH INHALATION ×4 (01:49→19:59)
[2020-06-21] MEDS: IPRATROPIUM BR 0.02% INH SOLN 0.5 MG/2.5 ML VIAL INHALATION ×4 (01:49→20:00)
[2020-06-21 04:41] LABS: Hematocrit 37.2 % (42.0-52.0); Mean Corpuscular HGB Conc 32.3 g/dl (32-36); Mean Corpuscular Hemoglobin 28.7 pg (26-34); Mean Platelet Volume 9.9 fl (7.4-10.4); Platelet Count Result 259 k/mm3 (150-375); Red Blood Count 4.18 M/mm3 (4.6-6.20); Red Cell Distribution Width 14.2 % (11.5-14.5); White Blood Count 10.2 K/mm3 (4.5-10.0)
[2020-06-21] MEDS: ACETAMINOPHEN ELIXIR 325 MG/10.15 ML UDC 650 MG PO ×2 (04:43→08:36)
[2020-06-21] MEDS: CENTRAL LINE FLUSH 10 ML IV PUSH ×3 (04:44→20:30)
[2020-06-21 04:56] LABS: Alanine Aminotransferase 44 U/L (4-50); Albumin Level 2.3 g/dL (3.5-5.1); Alkaline Phosphatase 48 U/L (38-126); Anion Gap 3 mmol/L (8-16); Aspartate Amino Transferase 31 U/L (17-59); Bilirubin,Total 0.3 mg/dL (0.2-1.3); Blood Urea Nitrogen 31 mg/dL (9-20); Carbon Dioxide 33 mmol/L (22-30); Chloride 106 mmol/L (98-107); Estimated CRCL calculation 88 ml/min; Estimated Glomerular Filt Rate > 60; Glucose 209 mg/dL (75-110); Magnesium 1.8 mg/dL (1.6-2.3); Sodium 142 mmol/L (137-145)
[2020-06-21 05:33] LABS: Alveolar/Arterial O2 Gradient 142.4 mmHg; Base Excess ABG 5.1 mEq/l (+/-2.0); Carboxyhemoglobin 0.3 % THb (0-2.0); Fractional Inspired Oxygen 35 %; HCO3 ABG 27.8 mEq/l (22.0-26.0); Methemoglobin ABG 0.3 %THb (0-1.5); Oxygen Content ABG 16.6 %vol (16.0-22.0); Oxygen Saturation ABG 95.1 % (95.0-100.0); Oxyhemoglobin 92.6 % THb (90.0-100.0); PCO2 ABG 34.7 mmHg (35.0-45.0); PO2 ABG 66.8 mmHg (80.0-100.0); PO2 FiO2 Ratio Arterial Blood 1.91 %; Reduced Hemoglobin 6.8 %THb (0-5.0); Total Hemoglobin 12.7 g/dL (12.0-18.0)
[2020-06-21 05:35] LABS: Arterial Blood Gas PEEP 5 cmH2O; Arterial Blood Gas Tidal Volume 430 ml; Arterial Blood Gas Vent Mode CMV; Arterial Blood Gas Ventilator rate 26 /MIN; Device VENTILATOR; Modified Allen's Test Unable to perform; Site Drawn RIGHT RADIAL; pH ABG 7.522 (7.350-7.450)
[2020-06-21] MEDS: INSULIN ASPART (*BKC) 100 UNITS/ML SUB-Q (05:40)
[2020-06-21] MEDS: BUDESONIDE RESPULE NEB 0.5 MG/2 ML AMP INHALATION ×2 (07:42→20:00)
[2020-06-21] MEDS: LORATADINE 10 MG TABLET PO (08:30)
[2020-06-21] MEDS: EZETIMIBE 10 MG TABLET PO (08:30)
[2020-06-21] MEDS: ENOXAPARIN 40 MG/0.4 ML SYRINGE SUB-Q ×2 (08:30→20:29)
[2020-06-21] MEDS: PANTOPRAZOLE SODIUM IV 40 MG VIAL IV PUSH ×2 (08:30→20:29)
[2020-06-21] MEDS: ASCORBIC ACID 500 MG TABLET 1000 MG PO (08:30)
[2020-06-21] MEDS: polyethylene glycoL 3350 17 GM POWD.PACK PO (08:30)
[2020-06-21] MEDS: ZINC SULFATE 220 MG CAPSULE PO (08:30)
[2020-06-21] MEDS: CHOLECALCIFEROL 1,000 UNITS TABLET 1000 UNITS PO (08:31)
[2020-06-21] MEDS: DEXAMETHASONE SOD PHOS INJ 4 MG/ML VIAL 6 MG IV PUSH (08:31)
[2020-06-21] MEDS: FUROSEMIDE INJ 40 MG/4 ML VIAL IV PUSH (08:32)
--- NOTE | 2020-06-21 09:31 | WPDINTPN ---
Progress Note: A&P Assessment and Plan (1) Acute respiratory failure with hypoxia: Code(s): J96.01 - Acute respiratory failure with hypoxia Status: Acute Assessment and Plan: Acute respiratory failure with hypoxia likely related to COVID-19 pneumonia with increasing oxygen requirements -patient intubated on 06/15/2020 and placed on mechanical ventilation Patient currently on 35% FiO2, peep of 5. Will place patient on SBT and evaluate for extubation. -continue albuterol and Atrovent -patient currently on Precedex infusion and Versed infusion at 1 mg/hour -chest x-ray and ABGs reviewed -sputum cultures growing Pseudomonas barker susceptible, started ceftazidime -will diurese today (2) Pneumonia due to COVID-19 virus: Code(s): U07.1 - COVID-19; J12.82 - Pneumonia due to coronavirus disease 2018 Status: Acute Assessment and Plan: SARS-CoV-2 PCR positive -status post Remdesivir continue dexamethasone -continue airborne, droplet and contact isolation/precautions -continue vitamin-C, vitamin-D and zinc -inflammatory markers trending down (3) DM w/o complication type II, uncontrolled: Qualifiers: Glycemic state: with hyperglycemia Qualified Code(s): E11.65 - Type 2 diabetes mellitus with hyperglycemia Code(s): E11.65 - Type 2 diabetes mellitus with hyperglycemia Status: Acute Assessment and Plan: Patient hyperglycemic likely related to starting of tube feeds and on steroids Continue sliding scale insulin with Accu-Cheks -continue Lantus -hemoglobin A1c this admission is 9.0 (4) Hypotension: Code(s): I95.9 - Hypotension, unspecified Status: Acute Assessment and Plan: Patient hypotensive likely related positive pressure ventilation, sedation medication, AFib RVR -off Levophed since 4:30 p.m. on 06/18/2020 -blood, sputum, urine cultures negative from 06/16/2020 -UA was unremarkable (5) Essential (primary) hypertension: Code(s): I10 - Essential (primary) hypertension Status: Acute Assessment and Plan: Will hold all antihypertensives as patient with hypotension likely related to positive pressure ventilation and sedation medications (6) Sinus bradycardia: Code(s): R00.1 - Bradycardia, unspecified Status: Acute Assessment and Plan: Likely related to Precedex infusion (7) DVT prophylaxis: Code(s): Z29.9 - Encounter for prophylactic measures, unspecified Status: Acute Assessment and Plan: DVT prophylaxis: Lovenox 40 mg SQ q.12 hours Stress ulcer prophylaxis: Protonix (8) Atrial fibrillation with RVR: Code(s): I48.91 - Unspecified atrial fibrillation Status: Acute Assessment and Plan: Resolved Patient went into AFib RVR likely related to COVID-19 pneumonia, acute respiratory failure -has been in sinus rhythm since 06/18, off amiodarone infusion -continue to monitor Additional Plan Discussed with Ellie, and updated her with patient's condition and plan of care. I answered all her questions Code status: Full code Critical care time spent: 34 minutes This dictation may have been done utilizing a voice recognition system. Attempts have been made to correct errors. However, there may be uncorrected grammatical, spelling, and recognition errors present. Due to a high probability of clinically significant, life threatening deterioration, the patient required my highest level of preparedness to intervene emergently and I personally spent this critical care time directly and personally managing the patient. This critical care time included obtaining a history; examining the patient; pulse oximetry; ordering and review of studies; arranging urgent treatment with development of a management plan; evaluation of patient's response to treatment; frequent reassessment; and discussions with other providers. It was exclusive of separately billable procedures and treating oth
[2020-06-21] MEDS: ALTEPLASE 2 MG VIAL (CATHFLO) IV PUSH ×2 (10:27→12:30)
[2020-06-21 10:40] LABS: Alveolar/Arterial O2 Gradient 139.4 mmHg; Base Excess ABG 9.5 mEq/l (+/-2.0); Fractional Inspired Oxygen 35 %; HCO3 ABG 32.3 mEq/l (22.0-26.0); Oxygen Content ABG 18.2 %vol (16.0-22.0); Oxygen Saturation ABG 95.4 % (95.0-100.0); Oxyhemoglobin 93.1 % THb (90.0-100.0); PCO2 ABG 37.3 mmHg (35.0-45.0); PO2 ABG 66.8 mmHg (80.0-100.0); PO2 FiO2 Ratio Arterial Blood 1.91 %; Total Hemoglobin 13.9 g/dL (12.0-18.0); pH ABG 7.556 (7.350-7.450)
[2020-06-21 10:41] LABS: Arterial Blood Gas PEEP 5 cmH2O; Arterial Blood Gas Pressure Support 8 cmH2O; Arterial Blood Gas Vent Mode SPONTANEOUS; Device VENTILATOR; Modified Allen's Test Pass; Site Drawn LEFT RADIAL
--- NOTE | 2020-06-21 11:03 | PCDIET ---
ICU Rounding Note: Tube feedings held for anticipated extubation today. Patient previously tolerating tube feedings well and will be resumed if unable to extubate. Last recorded weight is 91.5kg which is stable. Bowel Motility: No documented BM. Patient on daily Miralax. Labs Reviewed: Hgb (12.0), Hct (37.2), Glu (209), BUN (31), Alb (2.3), Gaustín Ca (9.36) Meds Noted: Albuterol, Vitamin C, Pulmicort, Fortaz, Precedex, Zetia, Novolog, Lantus, Atrovent, Protonix, Miralax, Vitamin D, Zinc Sulfate Additional Notes: No documented skin breakdown. Following daily in ICU rounds. Assessing/reassessing every Friday/Friday.
[2020-06-21 11:48] LABS: Glucose Point of Care 134 (65-105)
--- NOTE | 2020-06-21 14:40 | PM.IMPN ---
Progress Note: A&P Assessment and Plan (1) Acute respiratory failure with hypoxia: Code(s): J96.01 - Acute respiratory failure with hypoxia Status: Acute Assessment and Plan: pt spiking fevers, pt is on ceftazidime, wcc is 10 Continue ICU management (2) Pneumonia due to COVID-19 virus: Code(s): U07.1 - COVID-19; J12.82 - Pneumonia due to coronavirus disease 2018 Status: Acute Assessment and Plan: sp Remdesivir and on iv Dexamethasone for COVID PNEUMONIA (3) Atrial fibrillation with RVR: Code(s): I48.91 - Unspecified atrial fibrillation Status: Acute Assessment and Plan: Amiodarone drip is off Patient converted to sinus rhythm (4) Essential (primary) hypertension: Code(s): I10 - Essential (primary) hypertension Status: Acute Assessment and Plan: Off Of Levophed (5) DM w/o complication type II, uncontrolled: Qualifiers: Glycemic state: with hyperglycemia Qualified Code(s): E11.65 - Type 2 diabetes mellitus with hyperglycemia Code(s): E11.65 - Type 2 diabetes mellitus with hyperglycemia Status: Acute Assessment and Plan: Insulin sliding scale as needed Additional Plan Case 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 Will plan to transfer care to supervising physician given complex course of illness. Subjective Date/time seen: 06/21/20 14:40 Interval history: Naman Glaser is a 74-year-old male with history of insulin-dependent type 2 diabetes mellitus, hypertension, hyperlipidemia, and gout who received his first dose of COVID vaccine on 05/26/20 who is seen in follow-up for COVID-19 pneumonia. Pt weaning of ventilator now on 4 liters spiking small fever Review of Systems Review of Systems: All systems reviewed & are unremarkable except as noted in HPI and below Exam Narrative: Exam Narrative: Stable on oxygen HENMT: Head: normal to inspection, normocephalic and atraumatic Ears: hearing grossly normal bilaterally and external ears normal Face and sinus: normal facial exam Neck: Neck: normal visual inspection Thyroid: thyroid normal Lymphatic: no lymphadenopathy noted Resp: Auscultation: clear to auscultation bilaterally Cardio: Jugular venous distension: no JVD Rate: regular rate Skin: General skin exam: normal color and no rashes or lesions noted Rashes: no rashes Wounds: no wounds Neuro: General: moves all extremities and CN's II-XI intact bilaterally Cranial nerves: Yes CN's II-XII intact bilaterally, Yes Equal, round and reactive pupils present and Yes Normal hearing present Speech: normal speech Gait exam (Neuro): Normal gait present Motor exam (neuro): 5/5 motor strength present throughout Extrem: General: normal to inspection, full ROM, no joint enlargement and no pedal edema Psych: Affect: normal affect Objective Data Vital Signs Vital Signs: Vital Signs - 24 hr 06/20/20 15:29 06/20/20 15:30 06/20/20 16:00 Temperature 37.4 C Pulse Rate 80 80 47 L Respiratory Rate 26 H 26 H 26 H Blood Pressure 125/65 Pulse Oximetry 95 06/20/20 16:38 06/20/20 16:51 06/20/20 17:43 Temperature Pulse Rate 40 L 41 L 38 L Respiratory Rate 26 H 26 H Blood Pressure Pulse Oximetry 97 06/20/20 17:44 06/20/20 18:00 06/20/20 18:52 Temperature 37.2 C Pulse Rate 38 L 41 L 40 L Respiratory Rate 26 H 26 H 26 H Blood Pressure 146/68 H Pulse Oximetry 95 06/20/20 19:57 06/20/20 20:00 06/20/20 20:11 Temperature 37.9 C H Pulse Rate 58 L 56 L 55 L Respiratory Rate 27 H 28 H 29 H Blood Pressure 149/68 H Pulse Oximetry 96 94 06/20/20 20:20 06/20/20 20:26 06/20/20 20:30 Temperature Pulse Rate 43 L 52 L 47 L Respiratory Rate 28 H 27 H Blood Pressure Pulse Oximetry 93 06/20/20 20:38 06/20/20 21:45 06/20/20 21:47 Temperature Pulse Rate 45 L 57 L 57 L Respiratory Rate 27 H 35 H 32 H Blood Pressure Pulse Oximetry 06/02
[2020-06-21 17:31] LABS: Glucose Point of Care 121 (65-105)
[2020-06-21 23:29] LABS: Glucose Point of Care 98 (65-105)
[2020-06-21 23:29] LABS: Glucose Point of Care 95 (65-105)
[2020-06-22] VITALS (30 sets, daily range): BP systolic 107–146; BP diastolic 50–73; PULSE 54–135; RESP 17–26; TEMP 37.3–37.7; O2SAT 86–98
[2020-06-22] MEDS: ALBUTEROL SULFATE NEB 2.5 MG/0.5 ML INH INHALATION ×4 (02:05→20:06)
[2020-06-22] MEDS: IPRATROPIUM BR 0.02% INH SOLN 0.5 MG/2.5 ML VIAL INHALATION ×4 (02:05→20:06)
[2020-06-22] MEDS: CENTRAL LINE FLUSH 10 ML IV PUSH ×3 (05:00→20:14)
[2020-06-22 05:37] LABS: Basophils Percent Auto 0.2 % (0.2-1.2); Eosinophils Absolute Auto 0.1 K/mm3 (0-0.3); Eosinophils Percent Auto 0.6 % (0-4.4); Hematocrit 39.3 % (42.0-52.0); Hemoglobin 12.7 g/dL (14.0-18.0); Immature Granulocyte Absolute 0.13 K/mm3 (0.00-0.031); Lymphocytes Absolute Auto 2.14 K/mm3 (0.9-3.2); Mean Corpuscular HGB Conc 32.3 g/dl (32-36); Mean Corpuscular Hemoglobin 28.2 pg (26-34); Mean Corpuscular Volume 87.3 fl (80-100); Mean Platelet Volume 9.8 fl (7.4-10.4); Monocytes Absolute Auto 0.9 K/mm3 (0.1-0.6); Monocytes Percent Auto 7.5 % (2.6-8.5); Neutrophils Absolute Auto 9.3 K/mm3 (1.3-6.7); Neutrophils Percent Auto 73.7 % (45.5-73.1); Platelet Count Result 315 k/mm3 (150-375); Red Cell Distribution Width 13.7 % (11.5-14.5); White Blood Count 12.6 K/mm3 (4.5-10.0)
[2020-06-22 05:48] LABS: D Dimer 1.35 ug/mL (<0.48)
[2020-06-22 06:05] LABS: Alanine Aminotransferase 45 U/L (4-50); Albumin Level 2.5 g/dL (3.5-5.1); Alkaline Phosphatase 50 U/L (38-126); Anion Gap 1 mmol/L (8-16); Aspartate Amino Transferase 42 U/L (17-59); Bilirubin,Total 0.7 mg/dL (0.2-1.3); Blood Urea Nitrogen 27 mg/dL (9-20); CRP 3.5 mg/dL (<1.0); Calcium 7.9 mg/dL (8.4-10.2); Carbon Dioxide 38 mmol/L (22-30); Chloride 102 mmol/L (98-107); Estimated CRCL calculation 77 ml/min; Estimated Glomerular Filt Rate > 60; Glucose 80 mg/dL (75-110); Lactate Dehydrogenase 499 U/L (313-618); Magnesium 1.8 mg/dL (1.6-2.3); Phosphorus 3.2 mg/dL (2.5-4.5); Potassium 3.5 mmol/L (3.4-5.0); Sodium 141 mmol/L (137-145)
[2020-06-22] MEDS: BUDESONIDE RESPULE NEB 0.5 MG/2 ML AMP INHALATION ×2 (07:56→20:07)
[2020-06-22] MEDS: FUROSEMIDE INJ 40 MG/4 ML VIAL 20 MG IV PUSH (08:18)
[2020-06-22] MEDS: PANTOPRAZOLE SODIUM IV 40 MG VIAL IV PUSH ×2 (08:18→20:13)
[2020-06-22] MEDS: ENOXAPARIN 40 MG/0.4 ML SYRINGE SUB-Q (08:18)
--- NOTE | 2020-06-22 08:50 | PC.NURSE ---
Notified Dr. Dunn of patient hear rate in Afib RVR. New order for 5mg Lopressor IVP x1
[2020-06-22] MEDS: METOPROLOL TARTRATE INJ 5 MG/5 ML VIAL IV PUSH (08:55)
--- NOTE | 2020-06-22 08:57 | WPDINTPN ---
Progress Note: A&P Assessment and Plan (1) Acute respiratory failure with hypoxia: Code(s): J96.01 - Acute respiratory failure with hypoxia Status: Acute Assessment and Plan: Acute respiratory failure with hypoxia likely related to COVID-19 pneumonia with increasing oxygen requirements -patient intubated on 06/15/2020 and placed on mechanical ventilation - SUCCESSFULLY EXTUBATED ON 06/21/2020 -on 4-5 L oxygen via nasal cannula -continue albuterol and Atrovent -encourage incentive spirometry -up in chair -physical and occupational therapy to evaluate the patient -bedside swallow evaluation by speech therapy -sputum cultures growing Pseudomonas barker susceptible, started ceftazidime -will diurese again today (2) Pneumonia due to COVID-19 virus: Code(s): U07.1 - COVID-19; J12.82 - Pneumonia due to coronavirus disease 2018 Status: Acute Assessment and Plan: SARS-CoV-2 PCR positive -status post Remdesivir continue dexamethasone -continue airborne, droplet and contact isolation/precautions -continue vitamin-C, vitamin-D and zinc -inflammatory markers trending down (3) DM w/o complication type II, uncontrolled: Qualifiers: Glycemic state: with hyperglycemia Qualified Code(s): E11.65 - Type 2 diabetes mellitus with hyperglycemia Code(s): E11.65 - Type 2 diabetes mellitus with hyperglycemia Status: Acute Assessment and Plan: Patient hyperglycemic likely related to starting of tube feeds and on steroids Continue sliding scale insulin with Accu-Cheks -holding Lantus patient NPO -hemoglobin A1c this admission is 9.0 (4) Hypotension: Code(s): I95.9 - Hypotension, unspecified Status: Acute Assessment and Plan: Patient hypotensive likely related positive pressure ventilation, sedation medication, AFib RVR -off Levophed since 4:30 p.m. on 06/18/2020 -blood, sputum, urine cultures negative from 06/16/2020 -UA was unremarkable (5) Essential (primary) hypertension: Code(s): I10 - Essential (primary) hypertension Status: Acute Assessment and Plan: Will hold all antihypertensives as patient with hypotension likely related to positive pressure ventilation and sedation medications (6) Sinus bradycardia: Code(s): R00.1 - Bradycardia, unspecified Status: Acute Assessment and Plan: RESOLVED Likely related to Precedex infusion (7) DVT prophylaxis: Code(s): Z29.9 - Encounter for prophylactic measures, unspecified Status: Acute Assessment and Plan: DVT prophylaxis: Lovenox 40 mg SQ q.12 hours Stress ulcer prophylaxis: Protonix (8) Atrial fibrillation with RVR: Code(s): I48.91 - Unspecified atrial fibrillation Status: Acute Assessment and Plan: Resolved Patient went back into AFib RVR this morning on 06/22 -will give IV metoprolol -has been in sinus rhythm since 06/18, off amiodarone infusion -continue to monitor Additional Plan Discussed with Ellie, and updated her with patient's condition and plan of care. I answered all her questions Code status: Full code Critical care time spent: 36 minutes This dictation may have been done utilizing a voice recognition system. Attempts have been made to correct errors. However, there may be uncorrected grammatical, spelling, and recognition errors present. Due to a high probability of clinically significant, life threatening deterioration, the patient required my highest level of preparedness to intervene emergently and I personally spent this critical care time directly and personally managing the patient. This critical care time included obtaining a history; examining the patient; pulse oximetry; ordering and review of studies; arranging urgent treatment with development of a management plan; evaluation of patient's response to treatment; frequent reassessment; and discussions with other providers. It was exclusive of sep
[2020-06-22] MEDS: MAGNESIUM SULF 2 GM/WATER 50ML 2 GM/50 ML BAG IVPB (09:13)
[2020-06-22] MEDS: AMIODARONE 150 MG/D5W 100 ML 150 MG/100 ML BAG 600 MG IV CONT (09:46)
[2020-06-22] MEDS: AMIODARONE 360 MG/D5W 200 ML 360 MG/200 ML BAG 33.33 MG IV CONT (09:46)
--- NOTE | 2020-06-22 09:58 | PCSTNOTE ---
Please refer to the Bedside Swallow Evaluation in the EMR. Please note, silent aspiration cannot be ruled out at bedside.
--- NOTE | 2020-06-22 10:55 | PCDIET ---
ICU Rounding Note: Patient extubated and is currently NPO due to failed bedside swallow evaluation. If unable to start oral diet in next 24-48 hours, recommend replacing NG tube and resuming tube feedings. Last recorded weight is 87.1kg which is down from last review. -I/O. Bowel Motility: BM x 1 today. Labs Reviewed: WBC (12.7), Hct (39.3), BUN (27), Alb (2.5), Agustín Ca (9.1) Meds Noted: Albuterol, Vitamin C, Vitamin D, Pulmicort, Fortaz, Zinc Sulfate, Zetia, Atrovent, Protonix, Miralax Additional Notes: No documented skin breakdown. Following daily in ICU rounds. Assessing/reassessing every Friday/Friday.
[2020-06-22] MEDS: ENOXAPARIN 60 MG/0.6 ML SYRINGE 45 MG SUB-Q (12:20)
[2020-06-22 12:25] LABS: Glucose Point of Care 155 (65-105)
[2020-06-22 17:13] LABS: Glucose Point of Care 148 (65-105)
--- NOTE | 2020-06-22 17:19 | PM.IMPN ---
Progress Note: A&P Assessment and Plan (1) Acute respiratory failure with hypoxia: Code(s): J96.01 - Acute respiratory failure with hypoxia Status: Acute Assessment and Plan: pt is on ceftazidime, wcc is 11 transfer to medical floor (2) Pneumonia due to COVID-19 virus: Code(s): U07.1 - COVID-19; J12.82 - Pneumonia due to coronavirus disease 2019 Status: Acute Assessment and Plan: sp Remdesivir and on iv Dexamethasone for COVID PNEUMONIA (3) Atrial fibrillation with RVR: Code(s): I48.91 - Unspecified atrial fibrillation Status: Acute Assessment and Plan: On amiodarone (4) Essential (primary) hypertension: Code(s): I10 - Essential (primary) hypertension Status: Acute Assessment and Plan: Off Of Levophed (5) DM w/o complication type II, uncontrolled: Qualifiers: Glycemic state: with hyperglycemia Qualified Code(s): E11.65 - Type 2 diabetes mellitus with hyperglycemia Code(s): E11.65 - Type 2 diabetes mellitus with hyperglycemia Status: Acute Assessment and Plan: Insulin sliding scale as needed Subjective Date/time seen: 06/22/20 17:19 Interval history: Naman Glaser is a 74-year-old male with history of insulin-dependent type 2 diabetes mellitus, hypertension, hyperlipidemia, and gout who received his first dose of COVID vaccine on 05/26/20 who is seen in follow-up for COVID-19 pneumonia. Af with rvr, while in ICU, pt is on amiodarone Review of Systems Review of Systems: All systems reviewed & are unremarkable except as noted in HPI and below Exam Narrative: Exam Narrative: Stable on oxygen Const: General: cooperative and comfortable Nutritional Appearance: average body habitus HENMT: Head: normal to inspection, normocephalic and atraumatic Ears: hearing grossly normal bilaterally and external ears normal Resp: Other: IREG< IREG Cardio: Jugular venous distension: no JVD Heart sounds: S1 normal heart sound present, S2 normal heart sound present and no murmurs GI: Inspection: normal to inspection : General: Yes deferred Skin: General skin exam: normal color and no rashes or lesions noted Rashes: no rashes Wounds: no wounds Neuro: General: moves all extremities and CN's II-XI intact bilaterally Cranial nerves: Yes CN's II-XII intact bilaterally, Yes Equal, round and reactive pupils present and Yes Normal hearing present Cognition (Neuro): abnormal cognition ( under sedation on ventilator support) Speech: normal speech Gait exam (Neuro): Normal gait present Motor exam (neuro): 5/5 motor strength present throughout Extrem: General: normal to inspection, full ROM, no joint enlargement and no pedal edema Psych: Affect: normal affect Objective Data Vital Signs Vital Signs: Vital Signs - 24 hr 06/21/20 18:00 06/21/20 20:00 06/21/20 20:01 Temperature 38.0 C H 38.1 C H Pulse Rate 58 L 57 L 54 L Respiratory Rate 24 H 23 H 20 Blood Pressure 143/70 H 133/65 Pulse Oximetry 93 91 06/21/20 20:14 06/21/20 20:27 06/21/20 20:57 Temperature 38.1 C H 37.9 C H Pulse Rate 57 L Respiratory Rate 20 Blood Pressure Pulse Oximetry 06/21/20 22:00 06/22/20 00:00 06/22/20 02:00 Temperature 37.9 C H 37.7 C H 37.6 C Pulse Rate 53 L 55 L 62 Respiratory Rate 24 H 23 H 22 H Blood Pressure 119/60 107/50 L 121/62 Pulse Oximetry 92 90 92 06/22/20 02:06 06/22/20 02:14 06/22/20 04:00 Temperature 37.6 C Pulse Rate 54 L 61 61 Respiratory Rate 20 17 21 H Blood Pressure 126/60 Pulse Oximetry 90 06/22/20 06:00 06/22/20 07:58 06/22/20 08:00 Temperature 37.6 C 37.3 C Pulse Rate 63 63 66 Respiratory Rate 24 H 26 H 23 H Blood Pressure 138/63 146/73 H Pulse Oximetry 91 92 93 06/22/20 08:25 06/22/20 08:30 06/22/20 08:55 Temperature Pulse Rate 73 135 H Respiratory Rate 24 H Blood Pressure Pulse Oximetry 96 06/22/20 09:40 06/22/20 09:46 06/22/20 10
[2020-06-22] MEDS: AMIODARONE 360 MG/D5W 200 ML 360 MG/200 ML BAG 16.67 MG IV CONT (18:14)
[2020-06-22] MEDS: ENOXAPARIN 100 MG/ML SYRINGE 85 MG SUB-Q (20:13)
[2020-06-22 23:57] LABS: Glucose Point of Care 117 (65-105)
[2020-06-23] VITALS (24 sets, daily range): BP systolic 121–142; BP diastolic 54–77; PULSE 56–80; RESP 17–28; TEMP 36.1–37.7; O2SAT 90–98
[2020-06-23] MEDS: ALBUTEROL SULFATE NEB 2.5 MG/0.5 ML INH INHALATION ×4 (02:21→19:55)
[2020-06-23] MEDS: IPRATROPIUM BR 0.02% INH SOLN 0.5 MG/2.5 ML VIAL INHALATION ×4 (02:21→19:55)
[2020-06-23 04:17] LABS: Hematocrit 41.4 % (42.0-52.0); Hemoglobin 13.4 g/dL (14.0-18.0); Mean Corpuscular HGB Conc 32.4 g/dl (32-36); Mean Corpuscular Hemoglobin 28.8 pg (26-34); Mean Corpuscular Volume 88.8 fl (80-100); Mean Platelet Volume 9.5 fl (7.4-10.4); Platelet Count Result 286 k/mm3 (150-375); Red Blood Count 4.66 M/mm3 (4.6-6.20); White Blood Count 11.9 K/mm3 (4.5-10.0)
[2020-06-23 04:30] LABS: Anion Gap 1 mmol/L (8-16); Blood Urea Nitrogen 26 mg/dL (9-20); Calcium 7.5 mg/dL (8.4-10.2); Carbon Dioxide 37 mmol/L (22-30); Chloride 102 mmol/L (98-107); Estimated CRCL calculation 69 ml/min; Estimated Glomerular Filt Rate > 60; Glucose 136 mg/dL (75-110); Sodium 140 mmol/L (137-145)
[2020-06-23] MEDS: CENTRAL LINE FLUSH 10 ML IV PUSH ×3 (05:14→20:53)
[2020-06-23] MEDS: AMIODARONE 360 MG/D5W 200 ML 360 MG/200 ML BAG 16.67 MG IV CONT (06:10)
[2020-06-23] MEDS: BUDESONIDE RESPULE NEB 0.5 MG/2 ML AMP INHALATION ×2 (07:56→19:55)
--- NOTE | 2020-06-23 08:24 | WPDINTPN ---
Progress Note: A&P Assessment and Plan (1) Acute respiratory failure with hypoxia: Code(s): J96.01 - Acute respiratory failure with hypoxia Status: Acute Assessment and Plan: Acute respiratory failure with hypoxia likely related to COVID-19 pneumonia with increasing oxygen requirements -patient intubated on 06/15/2020 and placed on mechanical ventilation - SUCCESSFULLY EXTUBATED ON 06/21/2020 -on 4 L oxygen via nasal cannula -continue albuterol and Atrovent -encourage incentive spirometry -up in chair today -physical and occupational therapy to evaluate the patient -patient failed his bedside swallow test on 06/22 from a is to repeat a bedside swallow test today -sputum cultures growing Pseudomonas barker susceptible, continue ceftazidime (initiated on 06/20/2020) -will diurese again today (2) Pneumonia due to COVID-19 virus: Code(s): U07.1 - COVID-19; J12.82 - Pneumonia due to coronavirus disease 2018 Status: Acute Assessment and Plan: SARS-CoV-2 PCR positive -status post Remdesivir continue dexamethasone -continue airborne, droplet and contact isolation/precautions -continue vitamin-C, vitamin-D and zinc -inflammatory markers trending down (3) DM w/o complication type II, uncontrolled: Qualifiers: Glycemic state: with hyperglycemia Qualified Code(s): E11.65 - Type 2 diabetes mellitus with hyperglycemia Code(s): E11.65 - Type 2 diabetes mellitus with hyperglycemia Status: Acute Assessment and Plan: Patient hyperglycemic likely related to starting of tube feeds and on steroids Continue sliding scale insulin with Accu-Cheks -patient NPO, sugars have been within adequate range, holding Lantus -hemoglobin A1c this admission is 9.0 (4) Hypotension: Code(s): I95.9 - Hypotension, unspecified Status: Acute Assessment and Plan: Patient hypotensive likely related positive pressure ventilation, sedation medication, AFib RVR -off Levophed since 4:30 p.m. on 06/18/2020 -blood, sputum, urine cultures negative from 06/16/2020 -UA was unremarkable (5) Essential (primary) hypertension: Code(s): I10 - Essential (primary) hypertension Status: Acute Assessment and Plan: Will hold all antihypertensives as patient with hypotension likely related to positive pressure ventilation and sedation medications (6) Sinus bradycardia: Code(s): R00.1 - Bradycardia, unspecified Status: Acute Assessment and Plan: RESOLVED Likely related to Precedex infusion (7) DVT prophylaxis: Code(s): Z29.9 - Encounter for prophylactic measures, unspecified Status: Acute Assessment and Plan: DVT prophylaxis: Lovenox 40 mg SQ q.12 hours Stress ulcer prophylaxis: Protonix (8) Atrial fibrillation with RVR: Code(s): I48.91 - Unspecified atrial fibrillation Status: Acute Assessment and Plan: Resolved Patient went back into AFib RVR this morning on 06/22 currently on amiodarone infusion 0.5 mg/min -patient converted to sinus rhythm and is rate controlled -on therapeutic Lovenox -has been in sinus rhythm since 06/18, off amiodarone infusion -continue to monitor Additional Plan Discussed with Ellie, and updated her with patient's condition and plan of care. I answered all her questions Code status: Full code Critical care time spent: 33 minutes This dictation may have been done utilizing a voice recognition system. Attempts have been made to correct errors. However, there may be uncorrected grammatical, spelling, and recognition errors present. Due to a high probability of clinically significant, life threatening deterioration, the patient required my highest level of preparedness to intervene emergently and I personally spent this critical care time directly and personally managing the patient. This critical care time included obtaining a history; examining the patient; pulse oximetry; orde
[2020-06-23] MEDS: FUROSEMIDE INJ 40 MG/4 ML VIAL 20 MG IV PUSH (08:27)
[2020-06-23] MEDS: PANTOPRAZOLE SODIUM IV 40 MG VIAL IV PUSH ×2 (08:27→20:53)
[2020-06-23] MEDS: ENOXAPARIN 100 MG/ML SYRINGE 85 MG SUB-Q ×2 (08:27→20:52)
--- NOTE | 2020-06-23 10:46 | PCDIET ---
Nutrition Follow-Up Complete: Nutrition Diagnosis: Inadequate oral intake related to oral intubation as evidenced by NPO status. Nutrition Goal: Patient to meet estimated nutritional needs. Goal in progress. Patient to have repeat bedside swallow evaluation today. Per MD, patient more awake and alert today. If unable to safely advance diet following swallow study, recommend Glucerna 1.2 at goal rate of 75mL/hr for 1980kcal, 99g protein and 1328mL free water over 22 hours/day. Recommend 30mL water flush every 4 hours. Last recorded weight is 86 kg which is down from last review. -I/O. Bowel Motility: +BM today x 4. Labs Reviewed: Hgb (13.4), Hct (41.4), Glu (136), BUN (26), Agustín Ca (8.7) Meds Noted: Albuterol, Fortaz, Protonix, Pulmicort, Atrovent, Vitamin D, Zinc Sulfate Additional Notes: No documented skin breakdown. Will continue to monitor with same goal. Nutrition Monitoring and Evaluation: Follow up every 3 days. Follow daily in ICU rounds.
[2020-06-23] MEDS: ASCORBIC ACID 500 MG TABLET 1000 MG PO (13:11)
[2020-06-23] MEDS: EZETIMIBE 10 MG TABLET PO (13:11)
[2020-06-23] MEDS: CHOLECALCIFEROL 1,000 UNITS TABLET 1000 UNITS PO (13:11)
[2020-06-23] MEDS: ZINC SULFATE 220 MG CAPSULE PO (13:11)
[2020-06-23] MEDS: LORATADINE 10 MG TABLET PO (13:11)
--- NOTE | 2020-06-23 13:16 | PCSTNOTE ---
Please refer to the Bedside Swallow Evaluation in the EMR. Please note, silent aspiration cannot be ruled out at bedside.
[2020-06-23 13:17] LABS: Glucose Point of Care 205 (65-105)
[2020-06-23] MEDS: INSULIN ASPART (*BKC) 100 UNITS/ML SUB-Q (16:56)
[2020-06-23 17:06] LABS: Glucose Point of Care 290 (65-105)
--- NOTE | 2020-06-23 18:41 | PC.NURSE ---
This patient, Naman Glaser, was transferred to [ [id number] ] on 06/23/20 at 1815. Personal belongings sent with patient. Report given to [vida lee rn ]. Appropriate documentation sent with patient.
[2020-06-23] MEDS: METOPROLOL TARTRATE 25 MG TABLET PO (20:53)
[2020-06-23 21:09] LABS: Glucose Point of Care 160 (65-105)
[2020-06-23] MEDS: INSULIN GLARGINE (*BKC) 100 UNITS/ML 20 UNITS SUB-Q (21:33)
[2020-06-24] VITALS (29 sets, daily range): BP systolic 104–120; BP diastolic 50–78; PULSE 55–80; RESP 16–22; TEMP 36.2–36.9; O2SAT 90–95
[2020-06-24 01:11] LABS: Glucose Point of Care 151 (65-105)
[2020-06-24] MEDS: ALBUTEROL SULFATE NEB 2.5 MG/0.5 ML INH INHALATION ×4 (02:09→20:33)
[2020-06-24] MEDS: IPRATROPIUM BR 0.02% INH SOLN 0.5 MG/2.5 ML VIAL INHALATION ×4 (02:09→20:33)
[2020-06-24] MEDS: CENTRAL LINE FLUSH 10 ML IV PUSH ×3 (04:33→19:54)
[2020-06-24] MEDS: CENTRAL LINE FLUSH 20 ML IV PUSH (04:33)
[2020-06-24 04:53] LABS: D Dimer 0.61 ug/mL (<0.48)
[2020-06-24 04:58] LABS: CRP 2.8 mg/dL (<1.0); Lactate Dehydrogenase 597 U/L (313-618)
[2020-06-24] MEDS: BUDESONIDE RESPULE NEB 0.5 MG/2 ML AMP INHALATION ×2 (08:03→20:33)
[2020-06-24 08:17] LABS: Glucose Point of Care 124 (65-105)
[2020-06-24] MEDS: EZETIMIBE 10 MG TABLET PO (09:57)
[2020-06-24] MEDS: METOPROLOL TARTRATE 25 MG TABLET PO ×2 (09:58→19:57)
[2020-06-24] MEDS: LORATADINE 10 MG TABLET PO (09:58)
[2020-06-24] MEDS: CHOLECALCIFEROL 1,000 UNITS TABLET 1000 UNITS PO (09:58)
[2020-06-24] MEDS: ZINC SULFATE 220 MG CAPSULE PO (09:58)
[2020-06-24] MEDS: ASCORBIC ACID 500 MG TABLET 1000 MG PO (09:59)
[2020-06-24] MEDS: ENOXAPARIN 100 MG/ML SYRINGE 85 MG SUB-Q ×2 (09:59→19:57)
[2020-06-24] MEDS: PANTOPRAZOLE SODIUM IV 40 MG VIAL IV PUSH ×2 (09:59→19:58)
[2020-06-24] MEDS: polyethylene glycoL 3350 17 GM POWD.PACK PO (10:00)
[2020-06-24 11:53] LABS: Glucose Point of Care 226 (65-105)
--- NOTE | 2020-06-24 16:05 | PM.IMPN ---
Progress Note: A&P Assessment and Plan (1) Acute respiratory failure with hypoxia: Code(s): J96.01 - Acute respiratory failure with hypoxia Status: Acute Assessment and Plan: pt is on ceftazidime, wcc is 11, weaning of oxyen doing well hopeful Dc in 1-2 days time (2) Pneumonia due to COVID-19 virus: Code(s): U07.1 - COVID-19; J12.82 - Pneumonia due to coronavirus disease 2019 Status: Acute Assessment and Plan: sp Remdesivir and on iv Dexamethasone for COVID PNEUMONIA (3) Atrial fibrillation with RVR: Code(s): I48.91 - Unspecified atrial fibrillation Status: Acute Assessment and Plan: On amiodarone (4) Essential (primary) hypertension: Code(s): I10 - Essential (primary) hypertension Status: Acute Assessment and Plan: restart oral medications (5) DM w/o complication type II, uncontrolled: Qualifiers: Glycemic state: with hyperglycemia Qualified Code(s): E11.65 - Type 2 diabetes mellitus with hyperglycemia Code(s): E11.65 - Type 2 diabetes mellitus with hyperglycemia Status: Acute Assessment and Plan: Insulin sliding scale as needed Subjective Date/time seen: 06/24/20 16:05 Interval history: Naman Glaser is a 74-year-old male with history of insulin-dependent type 2 diabetes mellitus, hypertension, hyperlipidemia, and gout who received his first dose of COVID vaccine on 05/26/20 who is seen in follow-up for COVID-19 pneumonia. Af with rvr, while in ICU, pt is stable doing well on 4 liters of oxygen. Review of Systems Review of Systems: All systems reviewed & are unremarkable except as noted in HPI and below Exam Narrative: Exam Narrative: Stable on oxygen Const: General: cooperative and comfortable HENMT: Head: normocephalic Neck: Neck: normal visual inspection Resp: Auscultation: clear to auscultation bilaterally Cardio: Jugular venous distension: no JVD Rate: regular rate Rhythm: regular rhythm Heart sounds: S1 normal heart sound present, S2 normal heart sound present and no murmurs GI: Inspection: normal to inspection Skin: General skin exam: normal color and no rashes or lesions noted Rashes: no rashes Wounds: no wounds Neuro: General: moves all extremities and CN's II-XI intact bilaterally Cranial nerves: Yes CN's II-XII intact bilaterally, Yes Equal, round and reactive pupils present and Yes Normal hearing present Cognition (Neuro): abnormal cognition ( under sedation on ventilator support) Speech: normal speech Gait exam (Neuro): Normal gait present Motor exam (neuro): 5/5 motor strength present throughout Extrem: General: normal to inspection, full ROM, no joint enlargement and no pedal edema Psych: Affect: normal affect Objective Data Vital Signs Vital Signs: Vital Signs - 24 hr 06/23/20 17:03 06/23/20 19:55 06/23/20 20:00 Temperature 36.1 C L Pulse Rate 67 62 61 Respiratory Rate 20 18 Blood Pressure 132/71 Pulse Oximetry 95 98 06/23/20 20:16 06/23/20 20:53 06/23/20 22:00 Temperature Pulse Rate 66 60 56 L Respiratory Rate 20 Blood Pressure Pulse Oximetry 06/24/20 00:00 06/24/20 01:57 06/24/20 02:09 Temperature 36.2 C L Pulse Rate 55 L 56 L 55 L Respiratory Rate 18 22 H Blood Pressure 104/53 L Pulse Oximetry 92 06/24/20 02:18 06/24/20 04:00 06/24/20 05:27 Temperature 36.2 C L Pulse Rate 61 59 L 55 L Respiratory Rate 20 20 Blood Pressure 112/54 L Pulse Oximetry 94 06/24/20 07:37 06/24/20 08:00 06/24/20 08:03 Temperature 36.4 C Pulse Rate 73 63 71 Respiratory Rate 18 18 18 Blood Pressure 120/62 Pulse Oximetry 90 94 06/24/20 08:07 06/24/20 08:30 06/24/20 09:58 Temperature Pulse Rate 75 63 Respiratory Rate 18 Blood Pressure Pulse Oximetry 94 06/24/20 10:00 06/24/20 11:47 06/24/20 12:00 Temperature 36.7 C Pulse Rate 60 59 L 58 L Respiratory Rate 18 18 Blood Pressure 112/
[2020-06-24 16:27] LABS: Glucose Point of Care 153 (65-105)
[2020-06-24 20:35] LABS: Glucose Point of Care 204 (65-105)
[2020-06-25] VITALS (24 sets, daily range): BP systolic 105–128; BP diastolic 49–64; PULSE 54–73; RESP 16–20; TEMP 36.2–36.9; O2SAT 80–95
[2020-06-25] MEDS: IPRATROPIUM BR 0.02% INH SOLN 0.5 MG/2.5 ML VIAL INHALATION ×4 (02:01→19:51)
[2020-06-25] MEDS: ALBUTEROL SULFATE NEB 2.5 MG/0.5 ML INH INHALATION ×3 (02:01→13:11)
[2020-06-25] MEDS: CENTRAL LINE FLUSH 10 ML IV PUSH ×3 (06:01→21:25)
[2020-06-25 06:42] LABS: Hematocrit 34.3 % (42.0-52.0); Hemoglobin 10.8 g/dL (14.0-18.0); Mean Corpuscular HGB Conc 31.5 g/dl (32-36); Mean Corpuscular Hemoglobin 28.6 pg (26-34); Mean Platelet Volume 9.8 fl (7.4-10.4); Platelet Count Result 224 k/mm3 (150-375); Red Blood Count 3.77 M/mm3 (4.6-6.20); Red Cell Distribution Width 13.9 % (11.5-14.5); White Blood Count 8.2 K/mm3 (4.5-10.0)
[2020-06-25 06:53] LABS: Anion Gap -1 mmol/L (8-16); Blood Urea Nitrogen 19 mg/dL (9-20); Carbon Dioxide 31 mmol/L (22-30); Chloride 109 mmol/L (98-107); Estimated CRCL calculation 101 ml/min; Estimated Glomerular Filt Rate > 60; Glucose 124 mg/dL (75-110); Potassium 3.1 mmol/L (3.4-5.0); Sodium 139 mmol/L (137-145)
[2020-06-25] MEDS: BUDESONIDE RESPULE NEB 0.5 MG/2 ML AMP INHALATION (07:58)
[2020-06-25 08:03] LABS: Glucose Point of Care 126 (65-105)
[2020-06-25] MEDS: ASCORBIC ACID 500 MG TABLET 1000 MG PO (08:39)
[2020-06-25] MEDS: CHOLECALCIFEROL 1,000 UNITS TABLET 1000 UNITS PO (08:41)
[2020-06-25] MEDS: LORATADINE 10 MG TABLET PO (08:41)
[2020-06-25] MEDS: METOPROLOL TARTRATE 25 MG TABLET PO ×2 (08:41→21:23)
[2020-06-25] MEDS: metFORMIN HCL XR 500 MG TAB.SR.24H 1000 MG PO (08:42)
[2020-06-25] MEDS: ZINC SULFATE 220 MG CAPSULE PO (08:42)
[2020-06-25] MEDS: EZETIMIBE 10 MG TABLET PO (08:42)
[2020-06-25] MEDS: ENOXAPARIN 100 MG/ML SYRINGE 85 MG SUB-Q (08:43)
[2020-06-25] MEDS: PANTOPRAZOLE SODIUM IV 40 MG VIAL IV PUSH (08:43)
[2020-06-25 11:19] LABS: Glucose Point of Care 258 (65-105)
--- NOTE | 2020-06-25 13:53 | PM.IMPN ---
Progress Note: A&P Assessment and Plan (1) Acute respiratory failure with hypoxia: Code(s): J96.01 - Acute respiratory failure with hypoxia Status: Acute Assessment and Plan: pt is on ceftazidime, continue to monitor WCC being treated for bacterial and viral pneumonia. Sputum positive for pseudomonas (2) Pneumonia due to COVID-19 virus: Code(s): U07.1 - COVID-19; J12.82 - Pneumonia due to coronavirus disease 2018 Status: Acute Assessment and Plan: sp Remdesivir and on iv Dexamethasone completed course for COVID PNEUMONIA (3) Atrial fibrillation with RVR: Code(s): I48.91 - Unspecified atrial fibrillation Status: Acute Assessment and Plan: On amiodarone (4) Essential (primary) hypertension: Code(s): I10 - Essential (primary) hypertension Status: Acute Assessment and Plan: Restart oral medications (5) DM w/o complication type II, uncontrolled: Qualifiers: Glycemic state: with hyperglycemia Qualified Code(s): E11.65 - Type 2 diabetes mellitus with hyperglycemia Code(s): E11.65 - Type 2 diabetes mellitus with hyperglycemia Status: Acute Assessment and Plan: Insulin sliding scale as needed Subjective Date/time seen: 06/23/20 13:53 Interval history: Naman Glaser is a 74-year-old male with history of insulin-dependent type 2 diabetes mellitus, hypertension, hyperlipidemia, and gout who received his first dose of COVID vaccine on 05/26/20 who is seen in follow-up for COVID-19 pneumonia. Af with rvr, while in ICU, pt is stable for transfer out of icu to medical floor. Review of Systems Review of Systems: All systems reviewed & are unremarkable except as noted in HPI and below Exam Narrative: Exam Narrative: Stable on oxygen Const: General: cooperative Resp: Auscultation: clear to auscultation bilaterally Cardio: Jugular venous distension: no JVD Rate: regular rate Rhythm: regular rhythm Heart sounds: S1 normal heart sound present, S2 normal heart sound present and no murmurs GI: Inspection: normal to inspection Skin: General skin exam: normal color and no rashes or lesions noted Rashes: no rashes Wounds: no wounds Neuro: General: moves all extremities and CN's II-XI intact bilaterally Cranial nerves: Yes CN's II-XII intact bilaterally, Yes Equal, round and reactive pupils present and Yes Normal hearing present Cognition (Neuro): abnormal cognition ( under sedation on ventilator support) Speech: normal speech Gait exam (Neuro): Normal gait present Motor exam (neuro): 5/5 motor strength present throughout Extrem: General: normal to inspection, full ROM, no joint enlargement and no pedal edema Psych: Affect: normal affect Objective Data Vital Signs Vital Signs: Vital Signs - 24 hr 06/24/20 14:00 06/24/20 14:13 06/24/20 14:15 Temperature Pulse Rate 58 L 59 L Respiratory Rate 18 Blood Pressure Pulse Oximetry 91 Pulse Oximetry [With Activity During Therapy Session] 06/24/20 14:21 06/24/20 16:00 06/24/20 18:00 Temperature 36.7 C Pulse Rate 80 62 62 Respiratory Rate 18 18 Blood Pressure 115/78 Pulse Oximetry 94 Pulse Oximetry [With Activity During Therapy Session] 06/24/20 19:57 06/24/20 20:00 06/24/20 20:36 Temperature 36.9 C Pulse Rate 59 L 58 L Respiratory Rate 16 Blood Pressure 116/68 Pulse Oximetry 93 93 Pulse Oximetry [With Activity During Therapy Session] 06/24/20 20:37 06/24/20 20:53 06/24/20 22:00 Temperature Pulse Rate 59 L 63 64 Respiratory Rate 18 18 Blood Pressure Pulse Oximetry Pulse Oximetry [With Activity During Therapy Session] 06/24/20 23:30 06/24/20 23:40 06/25/20 00:00 Temperature 36.2 C L Pulse Rate 58 L 62 Respiratory Rate 16 Blood Pressure 109/50 L Pulse Oximetry 94 95 Pulse Oximetry [With Activity During Therapy Session] 06/25/20 02:02 06/25/20 02:12 06/25/20 03:35 Temper
[2020-06-25] MEDS: INDAPAMIDE 2.5 MG TABLET PO (13:58)
[2020-06-25] MEDS: CANAGLIFLOZIN 100 MG TABLET 300 MG PO (13:59)
[2020-06-25] MEDS: lisinopriL 10 MG TABLET PO (13:59)
--- NOTE | 2020-06-25 14:02 | PM.IMPN ---
Progress Note: A&P Assessment and Plan (1) Acute respiratory failure with hypoxia: Code(s): J96.01 - Acute respiratory failure with hypoxia Status: Acute Assessment and Plan: pt is on ceftazidime, wcc is 8, weaning of oxyen doing well hopeful Dc in 1-2 days time Pt still having wet cough with streaks of blood. (2) Pneumonia due to COVID-19 virus: Code(s): U07.1 - COVID-19; J12.82 - Pneumonia due to coronavirus disease 2019 Status: Acute Assessment and Plan: sp Remdesivir and on iv Dexamethasone completed course for COVID PNEUMONIA (3) Atrial fibrillation with RVR: Code(s): I48.91 - Unspecified atrial fibrillation Status: Acute Assessment and Plan: On amiodarone (4) Essential (primary) hypertension: Code(s): I10 - Essential (primary) hypertension Status: Acute Assessment and Plan: restart oral medications (5) DM w/o complication type II, uncontrolled: Qualifiers: Glycemic state: with hyperglycemia Qualified Code(s): E11.65 - Type 2 diabetes mellitus with hyperglycemia Code(s): E11.65 - Type 2 diabetes mellitus with hyperglycemia Status: Acute Assessment and Plan: Insulin sliding scale as needed Subjective Date/time seen: 06/25/20 14:02 Interval history: Naman Glaser is a 74-year-old male with history of insulin-dependent type 2 diabetes mellitus, hypertension, hyperlipidemia, and gout who received his first dose of COVID vaccine on 05/26/20 who is seen in follow-up for COVID-19 pneumonia. Af with rvr, while in ICU, pt is stable doing well on 3 liters of oxygen. Pt states he is having streaks of blood in his phlegm yellowish with streaks of blood. Pt states he was seeing things yesterday ? steroid related doing better, no hallucination today. Review of Systems Review of Systems: All systems reviewed & are unremarkable except as noted in HPI and below Exam Narrative: Exam Narrative: Stable on oxygen Const: General: cooperative and comfortable Nutritional Appearance: average body habitus HENMT: Head: normocephalic Ears: hearing grossly normal bilaterally and external ears normal Face and sinus: normal facial exam Eyes: Pupils: Equal, round and reactive pupils present Neck: Neck: normal visual inspection Thyroid: thyroid normal Lymphatic: no lymphadenopathy noted Resp: Effort & Inspection: other (On vent support) Auscultation: clear to auscultation bilaterally Other: IREG< IREG Cardio: Jugular venous distension: no JVD Rate: regular rate Rhythm: regular rhythm Heart sounds: S1 normal heart sound present, S2 normal heart sound present and no murmurs GI: Inspection: normal to inspection : General: Yes deferred Skin: General skin exam: normal color and no rashes or lesions noted Rashes: no rashes Wounds: no wounds Neuro: General: moves all extremities and CN's II-XI intact bilaterally Cranial nerves: Yes CN's II-XII intact bilaterally, Yes Equal, round and reactive pupils present and Yes Normal hearing present Cognition (Neuro): abnormal cognition ( under sedation on ventilator support) Speech: normal speech Gait exam (Neuro): Normal gait present Motor exam (neuro): 5/5 motor strength present throughout Extrem: General: normal to inspection, full ROM, no joint enlargement and no pedal edema Psych: Affect: normal affect Objective Data Vital Signs Vital Signs: Vital Signs - 24 hr 06/24/20 14:13 06/24/20 14:15 06/24/20 14:21 Temperature Pulse Rate 59 L 80 Respiratory Rate 18 18 Blood Pressure Pulse Oximetry 91 Pulse Oximetry [With Activity During Therapy Session] 06/24/20 16:00 06/24/20 18:00 06/24/20 19:57 Temperature 36.7 C Pulse Rate 62 62 59 L Respiratory Rate 18 Blood Pressure 115/78 Pulse Oximetry 94 Pulse Oximetry [With Activity During Therapy Session] 06/24/20 20:00 06/24/20 20:36 06/24/20 20:37 Temperature 36.9 C Pulse Rate
[2020-06-25 16:34] LABS: Glucose Point of Care 137 (65-105)
[2020-06-25 21:35] LABS: Glucose Point of Care 178 (65-105)
[2020-06-26] VITALS (25 sets, daily range): BP systolic 99–112; BP diastolic 47–63; PULSE 48–89; RESP 18–22; TEMP 35.9–36.5; O2SAT 86–98
[2020-06-26] MEDS: IPRATROPIUM BR 0.02% INH SOLN 0.5 MG/2.5 ML VIAL INHALATION ×2 (01:56→09:13)
[2020-06-26] MEDS: CENTRAL LINE FLUSH 10 ML IV PUSH ×2 (05:14→16:33)
[2020-06-26 06:27] LABS: Anion Gap -1 mmol/L (8-16); Blood Urea Nitrogen 20 mg/dL (9-20); Calcium 7.2 mg/dL (8.4-10.2); Carbon Dioxide 35 mmol/L (22-30); Chloride 106 mmol/L (98-107); Estimated CRCL calculation 63 ml/min; Estimated Glomerular Filt Rate > 60; Glucose 114 mg/dL (75-110); Potassium 3.7 mmol/L (3.4-5.0); Sodium 140 mmol/L (137-145)
[2020-06-26 08:16] LABS: Glucose Point of Care 182 (65-105)
[2020-06-26] MEDS: metFORMIN HCL XR 500 MG TAB.SR.24H 1000 MG PO (08:42)
[2020-06-26] MEDS: EZETIMIBE 10 MG TABLET PO (08:42)
[2020-06-26] MEDS: CANAGLIFLOZIN 100 MG TABLET 300 MG PO (08:42)
[2020-06-26] MEDS: ZINC SULFATE 220 MG CAPSULE PO (08:42)
[2020-06-26] MEDS: POTASSIUM CHLORIDE 20 MEQ PACKET (FOR LIQUID) 40 MEQ PO (08:42)
[2020-06-26] MEDS: LORATADINE 10 MG TABLET PO (08:42)
[2020-06-26] MEDS: INDAPAMIDE 2.5 MG TABLET PO (08:42)
[2020-06-26] MEDS: ASCORBIC ACID 500 MG TABLET 1000 MG PO (08:43)
[2020-06-26] MEDS: CHOLECALCIFEROL 1,000 UNITS TABLET 1000 UNITS PO (08:43)
[2020-06-26] MEDS: polyethylene glycoL 3350 17 GM POWD.PACK PO (08:43)
--- NOTE | 2020-06-26 11:43 | PCDIET ---
Nutrition Follow-Up Complete: Nutrition Diagnosis: Inadequate oral intake related to oral intubation as evidenced by NPO status. Nutrition Goal: Patient to meet estimated nutritional needs. Goal in progress. Patient reports improving appetite on diabetic, carbohydrate controlled diet. Average intake since diet advanced has been 67% of recorded meals. Patient not interested in nutritional shakes at this time. Adequate intake encouraged. Last recorded weight is 81 kg which is down from last review -I/O. Bowel Motility: Last documented BM on 06/25/20 x 1. Labs Reviewed: Hgb (13.4), Hct (41.4), Glu (136), BUN (26), Ca (7.5) Meds Noted: Vitamin C, Invokana, Fortaz, Zetia, Lozol, Novolog, Lantus, Atrovent, Lisinopril, Glucophage, Lopressor, Miralax, KCl, Vitamin D, Zinc Sulfate Additional Notes: No documented skin breakdown. Will continue to monitor with same goal. Nutrition Monitoring and Evaluation: Follow up every 5 days.
[2020-06-26 12:16] LABS: Glucose Point of Care 144 (65-105)
--- NOTE | 2020-06-26 14:47 | HOMEO2EVAL ---
Evaluation was performed at [facility] Home Oxygen Evaluation RC: Home Oxygen (O2) Evaluation Start: 06/26/20 13:24 Freq: ONCE Status: Active Protocol: RPE Activity Type Activity Date Activity User E-Sign Co-Sign Detail Recorded Client Recorded Date Recorded By Document 06/26/20 14:00 [email or web address] 06/26/20 14:47 DJO Document 06/26/20 14:05 [email or web address] 06/26/20 14:47 DJO Document 06/26/20 14:10 [email or web address] [email or web address] 06/26/20 14:47 DJO Document 06/26/20 14:15 [email or web address] [email or web address] 06/26/20 14:47 DJO Document 06/26/20 14:20 [email or web address] [email or web address] 06/26/20 14:47 DJO Document 06/26/20 14:25 [email or web address] [email or web address] 06/26/20 14:47 DJO Document 06/26/20 14:40 [email or web address] [email or web address] 06/26/20 14:47 DJO 06/26/20 06/26/20 06/26/20 14:00 14:05 14:10 Home O2 Evaluation Test Phase Resting Resting Exercise Oxygen Delivery Room Air Nasal Cannula Nasal Cannula Oxygen Flow Rate (L/min) 1 1 Pulse Oximetry (90-100 %) 87 L 90 86 L Pulse Rate (60-100 beats/min) 66 62 82 Activity Tolerance Treatment Charges O2 Evaluation - Inpatient 06/26/20 06/26/20 06/26/20 14:15 14:20 14:25 Home O2 Evaluation Test Phase Exercise Exercise Exercise Oxygen Delivery Nasal Cannula Nasal Cannula Nasal Cannula Oxygen Flow Rate (L/min) 2 3 4 Pulse Oximetry (90-100 %) 87 L 88 L 90 Pulse Rate (60-100 beats/min) 85 87 89 Activity Tolerance Good Treatment Charges 06/26/20 14:40 Home O2 Evaluation Test Phase Resting Oxygen Delivery Nasal Cannula Oxygen Flow Rate (L/min) 1 Pulse Oximetry (90-100 %) 91 Pulse Rate (60-100 beats/min) 66 Activity Tolerance Treatment Charges
--- NOTE | 2020-06-26 14:52 | PCRCNOTE ---
HOME O2 EVAL COMPLETE, 1 LITER AT REST AND 4 LITERS WITH ACTIVITY. SET UP WITH [facility]. PHONE NUMBER [phone]. TANK HAS BEEN DELIVERED TO PT'S ROOM.
--- NOTE | 2020-06-26 16:13 | PM.DS ---
DS: Admitting Diagnosis Admitting Diagnosis Admitting Diagnosis: Cough and dyspnea DS: Discharge Diagnosis Discharge Diagnosis (1) Acute respiratory failure with hypoxia: Code(s): J96.01 - Acute respiratory failure with hypoxia Status: Acute Assessment and Plan: pt is on ceftazidime, Pt treated for bacterial and viral pneumonia. Sputum positive for pseudomonas (2) Pneumonia due to COVID-19 virus: Code(s): U07.1 - COVID-19; J12.82 - Pneumonia due to coronavirus disease 2018 Status: Acute Assessment and Plan: sp Remdesivir and on iv Dexamethasone completed course for COVID PNEUMONIA pt tested positive in 06/11/2020 doing better down to 1 liter of oxygen at rest and 4 liters on ambulation. (3) Atrial fibrillation with RVR: Code(s): I48.91 - Unspecified atrial fibrillation Status: Acute Assessment and Plan: On amiodarone (4) Essential (primary) hypertension: Code(s): I10 - Essential (primary) hypertension Status: Acute Assessment and Plan: Restart oral medications (5) DM w/o complication type II, uncontrolled: Qualifiers: Glycemic state: with hyperglycemia Qualified Code(s): E11.65 - Type 2 diabetes mellitus with hyperglycemia Code(s): E11.65 - Type 2 diabetes mellitus with hyperglycemia Status: Acute Assessment and Plan: Insulin sliding scale as needed DS: Summary Hospital Course Hospital Course: Naman Glaser is a 74-year-old male with history of insulin-dependent type 2 diabetes mellitus, hypertension, hyperlipidemia, and gout who received his first dose of COVID vaccine on 05/26/20 who is seen in follow-up for COVID-19 pneumonia. Af with rvr, while in ICU, pt is stable doing well on 1 liters of oxygen. Pt states he is having streaks of blood in his phlegm yellowish with streaks of blood yesterday none today. Pt is stable to discharge with oxygen at home, home health services and pulmonology follow up. Pt was initially in ICU on a ventilator weaned off nicely. Pt has been treated for covid pneumonia and pseudomonal pneumonia. Time Spent with Patient Time attestation: Total time spent providing and/or coordinating discharge services:40 minutes on day of discharge Exam Narrative: Exam Narrative: Stable on oxygen Const: General: cooperative Nutritional Appearance: average body habitus HENMT: Head: normocephalic Ears: hearing grossly normal bilaterally and external ears normal Face and sinus: normal facial exam Eyes: Pupils: Equal, round and reactive pupils present Neck: Neck: normal visual inspection Thyroid: thyroid normal Resp: Auscultation: clear to auscultation bilaterally Other: IREG< IREG controlled Cardio: Jugular venous distension: no JVD Heart sounds: S1 normal heart sound present, S2 normal heart sound present and no murmurs GI: Inspection: normal to inspection Skin: General skin exam: normal color and no rashes or lesions noted Rashes: no rashes Wounds: no wounds Neuro: General: moves all extremities and CN's II-XI intact bilaterally Cranial nerves: Yes CN's II-XII intact bilaterally, Yes Equal, round and reactive pupils present and Yes Normal hearing present Cognition (Neuro): abnormal cognition ( under sedation on ventilator support) Speech: normal speech Gait exam (Neuro): Normal gait present Motor exam (neuro): 5/5 motor strength present throughout Extrem: General: normal to inspection, full ROM, no joint enlargement and no pedal edema Psych: Affect: normal affect DS: Data Data Completed and Pending Labs on day of discharge: Labs from last 24 hours 06/26/20 06/26/20 06/26/20 11:35 07:39 05:40 Sodium 140 Potassium 3.7 Chloride 106 Carbon Dioxide 35 H Anion Gap -1 L BUN 20 Creatinine 1.00 Estim Creat Clear Calc 63 Estimated GFR > 60 Glucose 114 H POC Capillary Glucose 144 H 182 H Calcium 7.2 L 06/25/20 06/25/20 21:20 15
[2020-06-26 16:43] LABS: Glucose Point of Care 156 (65-105)
--- NOTE | 2020-06-27 06:29 | WPDCDIQUERY2 ---
CDI Query Clarification Request - being treated for bacterial and viral pneumonia has been documented -06/16 sputum culture growing light growth of pseudomonas aeruginosa. Sputum positive for pseudomonas has been documented -Ceftazidime IV q 8 hrs ordered Please clarify if there is a correlation between the pseudomonas in the sputum culture and the diagnosis of bacterial pneumonia. <Radha Dobson RN - Last Filed: 06/27/20 06:32> Pseudomonal pneumonia <Dina Verma MD - Last Filed: 06/27/20 11:08>
== END 2020-06-26 18:36 | disposition home health service (06) | DRG 208 ==
LOC: ANHED 11:26 → ANH3MEDSUR 06-12 03:32 → ANHICU 06-13 06:46 → ANHIMU 06-26 15:35 → ANH3MEDSUR 06-27 12:27 → ANHICU 06-27 12:27 → ANHIMU 06-27 12:27
PROVIDERS: Family Medicine; Internal Medicine; Nurse Practitioner; Admitting Provider Internal Medicine; Emergency Provider Emergency Medicine; PCP Family Medicine; Visit Provider Physician Assistant
DX: U07.1 COVID-19 (principal); J12.82 Pneumonia due to coronavirus disease 2019; J15.1 Pneumonia due to Pseudomonas; J96.01 Acute respiratory failure with hypoxia; I48.91 Unspecified atrial fibrillation; I10 Essential (primary) hypertension; E11.65 Type 2 diabetes mellitus with hyperglycemia; E78.2 Mixed hyperlipidemia; I95.9 Hypotension, unspecified; R00.1 Bradycardia, unspecified; M1A.00X0 Idiopathic chronic gout, unspecified site, without tophus (tophi)
CPT/HCPCS: 31500; 36415; 36430; 36569; 36600; 71045; 71046; 71275; 80048; 80053; 81001; 82375; 82565; 82728; 82805; 82948; 83036; 83050; 83605; 83615; 83735; 83880; 84100; 84443; 84460; 84484; 84550; 85025; 85027; 85055; 85380; 85652; 86038; 86140; 86900; 86901; 87040; 87070; 87077; 87086; 87186; 87205; 92610; 93005; 94002; 94003; 94618; 94640; 94667; 94668; 96365; 96375; 97110; 97116; 97162; 97165; 97530; 99285; A9270; C1751; C9113; C9803; J0131; J0282; J0696; J0713; J1100; J1650; J1815; J1940; J2060; J2250; J2997; J3010; J3475; J3480; J7040; J7050; J7120; P9059; Q9967; U0003; U0005

== ENCOUNTER 2020-07-04 15:32 | Outpatient (CLI) | payer MEDICARE, SELFPAY ==
--- NOTE | ~2020-07-04 | XR_ITS ---
EXAMINATION: XR chest 2V EXAM DATE: 07/04/2020 15:47 INDICATION: R06.2 - Wheezing, shortness of breath, released after episode of COVID pneumonia. TECHNIQUE: Portable AP frontal chest x-ray was obtained. Comparison is made to prior examination from 06/26/2020. FINDINGS: There is diffuse bilateral airspace disease, with improvement compared to previous examinat ion. Appearance is consistent with subacute COVID pneumonia. Prior chest x-ray was a week ago, but do not suspect any superimposed new airspace disease. No pneumothorax. Cardiomediastinal silhouette is normal. There are bony degenerative changes. IMPRESSION: 1. Diffuse airspace disease consistent with subacute COVID pneumonia, interval improvement. Reviewed, dictated and finalized at location B.
== END 2020-07-04 15:33 | disposition home or self-care (01) ==
LOC: ANHIMG 15:35
PROVIDERS: PCP Family Medicine; Visit Provider Family Medicine
DX: U07.1 COVID-19 (principal); J12.82 Pneumonia due to coronavirus disease 2019; R06.2 Wheezing
CPT/HCPCS: 71046

== ENCOUNTER 2020-07-07 10:09 | Outpatient (NON) | payer MEDICARE, SELFPAY ==
[2020-07-07 10:23] LABS: Basophils Absolute Auto 0.1 K/mm3 (0.0-0.1); Basophils Percent Auto 0.7 % (0.2-1.2); Eosinophils Absolute Auto 0.3 K/mm3 (0-0.3); Eosinophils Percent Auto 4.2 % (0-4.4); Hematocrit 39.3 % (42.0-52.0); Hemoglobin 12.7 g/dL (14.0-18.0); Immature Granulocyte Absolute 0.05 K/mm3 (0.00-0.031); Immature Granulocyte Percent A 0.7 % (0-0.5); Lymphocytes Absolute Auto 1.79 K/mm3 (0.9-3.2); Lymphocytes Percent Auto 25.7 % (18.3-44.2); Mean Corpuscular HGB Conc 32.3 g/dl (32-36); Mean Corpuscular Hemoglobin 29.2 pg (26-34); Mean Corpuscular Volume 90.3 fl (80-100); Mean Platelet Volume 9.9 fl (7.4-10.4); Monocytes Absolute Auto 0.5 K/mm3 (0.1-0.6); Monocytes Percent Auto 7.2 % (2.6-8.5); Neutrophils Absolute Auto 4.3 K/mm3 (1.3-6.7); Neutrophils Percent Auto 61.5 % (45.5-73.1); Platelet Count Result 176 k/mm3 (150-375); Red Blood Count 4.35 M/mm3 (4.6-6.20); Red Cell Distribution Width 14.9 % (11.5-14.5)
[2020-07-07 10:46] LABS: Potassium 4.1 mmol/L (3.4-5.0)
[2020-07-07 10:47] LABS: Alanine Aminotransferase 12 U/L (4-50); Albumin Level 2.9 g/dL (3.5-5.1); Alkaline Phosphatase 51 U/L (38-126); Anion Gap 1 mmol/L (8-16); Aspartate Amino Transferase 15 U/L (17-59); Bilirubin,Total 0.4 mg/dL (0.2-1.3); Blood Urea Nitrogen 20 mg/dL (9-20); Carbon Dioxide 36 mmol/L (22-30); Chloride 99 mmol/L (98-107); Estimated Glomerular Filt Rate > 60; Glucose 137 mg/dL (75-110); Sodium 136 mmol/L (137-145)
== END 2020-07-07 10:10 | disposition home or self-care (01) ==
PROVIDERS: PCP Family Medicine; Visit Provider Family Medicine
DX: I48.91 Unspecified atrial fibrillation (principal); I95.9 Hypotension, unspecified; J96.01 Acute respiratory failure with hypoxia; R00.1 Bradycardia, unspecified; R60.9 Edema, unspecified
CPT/HCPCS: 80053; 85025

== ENCOUNTER 2020-07-24 09:56 | Outpatient (CLI) | payer MEDICARE, SELFPAY ==
--- NOTE | ~2020-07-24 | XR_ITS ---
XR chest 2V DATE: 07/24/2020 09:52 INDICATION: Covid 19 pneumonia TECHNIQUE: PA and lateral views COMPARISON: 07/04/2020 PA and lateral chest FINDINGS: There is patchy infiltrate scattered in both lungs, mildly improved since 07/2020. Normal heart size. No pleural effusion or pulmonary vascular congestion or pneumothorax. Normal heart size. IMPRESSION: Moderate improvement but persistent bilateral pulmonary infiltrates Reviewed, dictated and finalized at location A.
== END 2020-07-24 09:57 | disposition home or self-care (01) ==
PROVIDERS: PCP Family Medicine; Visit Provider Family Medicine
DX: U07.1 COVID-19 (principal); J12.82 Pneumonia due to coronavirus disease 2019
CPT/HCPCS: 71046

== ENCOUNTER 2020-08-23 13:19 | Outpatient (CLI) | payer MEDICARE, SELFPAY ==
--- NOTE | ~2020-08-23 | XR_ITS ---
XR chest 2V 08/23/2020 13:32 Indication: Hypoxemia. Shortness of breath. Pneumonia. Procedure: 2 view chest Comparison: Comparison to multiple prior studies sequentially, with oldest reviewed study dated 06/26. Findings: There is continued improvement of patchy bilateral airspace consolidation. No pleural effus ion. No pneumothorax. Heart size normal. Impression: 1: Continued improvement of patchy bilateral pneumonia. Reviewed, dictated and finalized at location B. Impression: 1: Continued improvement of patchy bilateral pneumonia.
== END 2020-08-23 13:20 | disposition home or self-care (01) ==
LOC: ANHIMG 13:22
PROVIDERS: PCP Family Medicine
DX: U07.1 COVID-19 (principal); J12.82 Pneumonia due to coronavirus disease 2019; R09.02 Hypoxemia
CPT/HCPCS: 71046

== ENCOUNTER → 2021-11-14 10:48 | Outpatient (CLI) | payer MEDICARE, SELFPAY ==
--- NOTE | ~2021-11-14 | XR_ITS ---
EXAM: XR hand RT 2V, XR wrist RT min 3V DATE: 11/14/2021 11:08 HISTORY: M25.531 - Pain in right wrist . COMPARISON: None available. FINDINGS: Normal mineralization. No acute fracture or dislocation. Old ulnar styloid fracture fragme nt No lytic or blastic lesion. Minimal degenerative change at the radiocarpal joint, triscaphe joint, and multiple interphalangeal joints. No erosion or periosteal change. Soft tissues within normal cherry its. IMPRESSION: Mild scattered degenerative changes. Reviewed, dictated and finalized at location K. IMPRESSION: Mild scattered degenerative changes.
--- NOTE | ~2021-11-14 | XR_ITS ---
EXAMINATION: XR chest 2V Exam Date/Time: 11/14/2021 11:00 CDT HISTORY: Dyspnea on exertion. Hx of COVID. Comparison: 08/23/2020. RESULT: Lines, tubes, and devices: None. Lungs and pleura: Senescent change. Bibasilar scarring. Cardiomediastinal silhouette: Stable. Other: No acute osseous or upper abdominal finding. IMPRESSION: No acute cardiopulmonary process. Reviewed, dictated and finalized at location K.
== END ==
PROVIDERS: PCP Family Medicine; Visit Provider Family Medicine
DX: R06.09 Other forms of dyspnea (principal); M19.031 Primary osteoarthritis, right wrist; M19.041 Primary osteoarthritis, right hand
CPT/HCPCS: 71046; 73110; 73120

== ENCOUNTER 2023-02-11 00:52 | Day surgery (SDC) | payer MEDICARE, SELFPAY ==
[2023-01-28 15:24] VITALS: BMI 21.4
--- NOTE | 2023-02-07 13:56 | SUR.PREOP ---
Patient called regarding upcoming procedure. Reviewed preop instructions, appointment times, and procedure prep.
[2023-02-11 09:45] LABS: Glucose Point of Care 146 mg/dl (65-105)
[2023-02-11 09:49] VITALS: BP 185/92; PULSE 74; RESP 17; TEMP 36.6; O2SAT 99; BMI 24.7
[2023-02-11] MEDS: LACTATED RINGERS 1,000 ML 150 ML IV CONT (09:58)
--- NOTE | 2023-02-11 10:08 | PM.HPGS ---
History of Present Illness History of Present Illness Consent: Risks, benefits, and alternatives have been discussed and questions answered. Patient agrees to proceed with procedure. Chief complaint: neoplasm screening Narrative: Naman Glaser is a 77 year old male Presents for screening colonoscopy. Patient's current weight appetite and bowel movements are normal. Patient denies abdominal pain. He has had no bleeding. Family history contributory. Previous exam 10 or 12 years ago was unremarkable. Review of Systems Review of Systems: Review of systems noncontributory. [facility] Past Medical History Medical History DM w/o complication type II, uncontrolled Essential (primary) hypertension Idiopathic gout, unspecified site Mixed hyperlipidemia Surgical History Surgical History Hx of prostatectomy Robot assisted for benign disease Family History Family History Father Family history of coronary artery disease Hypertension Mother Hypertension Family history of coronary artery disease Social History Social History Smoking status: Never smoker Alcohol intake: never Alcohol use details: very occasional Substance use: never Substance use type: does not use Lack of Transportation: No Lack of Food: Never True Current Housing: I Have Housing Concerned About Future Housing: No Difficulty Paying Gas/Electric Bills: No Difficulty Paying for Meds: No Currently Unemployed: No Education: High School Diploma/GED Difficulty w/ Childcare or Family Care: No Living arrangements: with family Gender identity (if verbalized by the patient): Male Spiritual care concerns: No Meds Home Medications and Allergies Home Medications Medication Instructions Recorded Confirmed Type cholecalciferol (vitamin D3) 50 50 mcg PO DAILY 11/14/21 02/11/23 History mcg (2,000 unit) capsule multivitamin 1 tablet PO DAILY 11/14/21 02/11/23 History atorvastatin 80 mg tablet See Rx Instructions .Route 01/17/22 02/11/23 Rx .COMPLEX #90 tabs allopurinol 300 mg tablet 300 mg PO DAILY #90 tabs 01/23/22 02/11/23 Rx ezetimibe 10 mg tablet 10 mg PO DAILY #90 tabs 02/11/22 02/11/23 Rx empagliflozin 25 mg tablet 25 mg PO DAILY #90 tabs 04/12/22 02/11/23 Rx (Jardiance) pen needle, diabetic 31 gauge x See Rx Instructions .Route 06/26/22 02/11/23 Rx 3/16 (TRUEplus Pen Needle) .COMPLEX #100 ea lisinopril 10 mg tablet 10 mg PO DAILY #90 tabs 11/22/22 02/11/23 Rx metformin 500 mg 24 hr 1,000 mg PO DAILY #180 tabs 11/26/22 02/11/23 Rx tablet,extended release (gastric retention) ascorbate calcium (vitamin C) 500 500 mg PO DAILY 11/27/22 02/11/23 History mg tablet insulin glargine U-300 conc 300 40 unit subcut DAILY 01/28/23 02/11/23 History unit/mL (1.5 mL) subcutaneous pen (Toujeo SoloStar U-300 Insulin) Allergies Allergy/AdvReac Type Severity Reaction Status Date / Time aspirin Allergy Unknown Skin Verified 02/11/23 09:48 Reaction diphenhydramine AdvReac Hives Verified 02/11/23 09:48 [From Benadryl] Vital Signs Vital Signs - 24 hr 02/11/23 09:49 Temperature 98 F Pulse Rate 74 Respiratory Rate 17 Blood Pressure 185/92 H Pulse Oximetry 99 Oxygen Delivery Room Air Exam Narrative: Physical exam reveals patient to be alert. Vital signs stable. HEENT exam is unremarkable. Patient is anicteric. Lungs are clear to auscultation and percussion. Heart is without murmur or extra sounds. Abdomen bowel sounds are present soft nontender with no hepatosplenomegaly. Digital external rectal exam is normal. Assessment and Plan Assessment and plan (1) Encounter for screening colonoscopy: Code(s): Z12.11 - Encounter for sc
--- NOTE | 2023-02-11 11:01 | WPDANESEPPF ---
Anes - Initial Pre Proc Eval Procedure: Operation Date: 02/11/23 11:00 Proposed Procedures p Screening Colonoscopy - Reece Hatfield MD Date/Time: 02/11/23 11:01 Surgeon: Reece Hatfield MD Pre Op Diagnosis: neoplasm screening Patient Data Age: 77 Gender: M Height: 1.98 m Weight: 97.3 kg Last Vital Signs Temp 98 F 02/11/23 09:49 Pulse 74 02/11/23 09:49 Resp 17 02/11/23 09:49 BP 185/92 H 02/11/23 09:49 Pulse Ox 99 02/11/23 09:49 O2 Del Method Room Air 02/11/23 09:49 Allergies Allergy/AdvReac Type Severity Reaction Status Date / Time aspirin Allergy Unknown Skin Verified 02/11/23 09:48 Reaction diphenhydramine AdvReac Hives Verified 02/11/23 09:48 [From [facility]] Home Medications Medication Instructions Recorded Confirmed Type cholecalciferol (vitamin D3) 50 50 mcg PO DAILY 11/14/21 02/11/23 History mcg (2,000 unit) capsule multivitamin 1 tablet PO DAILY 11/14/21 02/11/23 History atorvastatin 80 mg tablet See Rx Instructions .Route 01/17/22 02/11/23 Rx .COMPLEX #90 tabs allopurinol 300 mg tablet 300 mg PO DAILY #90 tabs 01/23/22 02/11/23 Rx ezetimibe 10 mg tablet 10 mg PO DAILY #90 tabs 02/11/22 02/11/23 Rx empagliflozin 25 mg tablet 25 mg PO DAILY #90 tabs 04/12/22 02/11/23 Rx (Jardiance) pen needle, diabetic 31 gauge x See Rx Instructions .Route 06/26/22 02/11/23 Rx 3/16 (TRUEplus Pen Needle) .COMPLEX #100 ea lisinopril 10 mg tablet 10 mg PO DAILY #90 tabs 11/22/22 02/11/23 Rx metformin 500 mg 24 hr 1,000 mg PO DAILY #180 tabs 11/26/22 02/11/23 Rx tablet,extended release (gastric retention) ascorbate calcium (vitamin C) 500 500 mg PO DAILY 11/27/22 02/11/23 History mg tablet insulin glargine U-300 conc 300 40 unit subcut DAILY 01/28/23 02/11/23 History unit/mL (1.5 mL) subcutaneous pen (Toujeo SoloStar U-300 Insulin) Laboratory Tests 02/11/23 09:43 POC Capillary Glucose 146 H mg/dl (65-105) Patient hx anesthesia problems: none Family hx anesthesia problems: none Results Review: All pre-operative results and documents have been reviewed as part of the pre-operative evaluation. [facility] Past Medical History Medical History DM w/o complication type II, uncontrolled Essential (primary) hypertension Idiopathic gout, unspecified site Mixed hyperlipidemia Surgical History Surgical History Hx of prostatectomy Robot assisted for benign disease Family History Family History Father Family history of coronary artery disease Hypertension Mother Hypertension Family history of coronary artery disease Social History Social History Smoking status: Never smoker Alcohol intake: never Alcohol use details: very occasional Substance use: never Substance use type: does not use Lack of Transportation: No Lack of Food: Never True Current Housing: I Have Housing Concerned About Future Housing: No Difficulty Paying Gas/Electric Bills: No Difficulty Paying for Meds: No Currently Unemployed: No Education: High School Diploma/GED Difficulty w/ Childcare or Family Care: No Living arrangements: with family Gender identity (if verbalized by the patient): Male Spiritual care concerns: No Anes - Eval Final PreProcedure Day of Procedure 02/11/23 11:01 Patient weight: normal Heart: regular rate and rhythm Lungs: clear to auscultation Airway: Mallampati scale class II Neurological: alert and oriented Last oral intake: >/= 8 hours ASA classification: III Emergent: no Anesthetic plan: proceed Anesthesia type and monitoring: general GIVS and standard monitoring Results Review: All pre-operative results and documents have been reviewed as part of the pre-oper
[2023-02-11 11:32] VITALS: BP 125/63; PULSE 64; RESP 15; O2SAT 96
[2023-02-11 11:42] VITALS: BP 115/76; PULSE 60; RESP 13; O2SAT 95
[2023-02-11 11:52] VITALS: BP 135/86; PULSE 70; RESP 19; O2SAT 97
== END 2023-02-11 12:02 | disposition home or self-care (01) ==
PROVIDERS: PCP Family Medicine; Visit Provider Internal Medicine Gastroenterology
PROC: 0DJD8ZZ Inspection of Lower Intestinal Tract, Via Natural or Artificial Opening Endoscopic (ICD-10-PCS; CPT 45378; principal; 2023-02-11 11:00)
DX: Z12.11 Encounter for screening for malignant neoplasm of colon (principal); K64.8 Other hemorrhoids; K57.30 Diverticulosis of large intestine without perforation or abscess without bleeding; E11.9 Type 2 diabetes mellitus without complications; I10 Essential (primary) hypertension; M10.9 Gout, unspecified; E78.2 Mixed hyperlipidemia; Z79.84 Long term (current) use of oral hypoglycemic drugs; Z79.4 Long term (current) use of insulin
CPT/HCPCS: G0121; 82948; J2704; J7120